=== PATIENT | female | born 1970 | race Caucasian/White ===

== ENCOUNTER 2017-09-01 13:20 | Inpatient (IN) ==
[~2017-09-01 13:20] MED LIST: *HR* Etomidate 20 MG/10 ML AMPUL IVP ONE; *HR* Rocuronium Bromide 100 MG/10 ML VIAL IVC ONE; 0.9 % Sodium Chloride 1,000 ML IV.SOLN IV ONE
[2017-09-01] MEDS ORDERED: Dexmedetomidine HCl 400 MCG/100 ML MLS IVC SCH (13:30)
[2017-09-01] MEDS ORDERED: *HR* Midazolam HCl 5 MG/5 ML VIAL IVP ONE ×3 (13:38→15:38)
[2017-09-01] MEDS ORDERED: *HR* Midazolam HCl 2 MG/2 ML VIAL ONE ×3 (13:39→15:40)
--- NOTE | 2017-09-01 13:43 | Emergency Department Note ---
Disposition Clinical Impression: Myxedema coma, Acute hypercapnic respiratory failure Disposition: Admitted As Inpatient Condition: Serious CPR HPI - General Chief Complaint: ED Cardiac Arrest/CPR Stated Complaint: unresponsive Time Seen by Provider: 09/01/17 13:25 Source: EMS Mode of arrival: EMS Limitations: other Nursing Notes Reviewed: Yes Vital Signs Reviewed: Yes - History of Present Illness HPI Narrative: Patient presents to the ED via EMS after return of spontaneous circulation after an apparent cardiac arrest. EMS was called to the patient's house after the patient was an argument with her family over Thanksgiving dinner. She then became diaphoretic, short of breath and collapsed. Reportedly, the patient did not have a pulse and bystander CPR was performed. When EMS arrived they state that she was actively breathing, unresponsive and had a weak thready pulse. No medications were administered. A nasal airway was in place and bag valve mask ventilation provided. Upon arrival to the emergency department patient was minimally responsive and had no gag reflex. The decision to intubate the RSI. Please see my note for further details. Family is present and states that the patient does have multiple presentations exactly like this previously where she will have acute respiratory failure of unknown cause. - Related Data Home Medications Medication Instructions Recorded Confirmed Unable To Obtain [Unable to Obtain] 09/01/17 09/01/17 Allergies Allergy/AdvReac Type Severity Reaction Status Date / Time No Known Allergies Allergy Verified 09/01/17 15:16 Limitations: ROS unobtainable due to patients medical condition CPR PMH - Past Medical History Medical history: Reports: no medical history - Social History Smoking Status: Unknown if ever smoked Physical Exam - General Limitations: other General appearance: obese - Head Head exam: atraumatic - Eye Eye exam: Present: mydriasis (minimally responsive ), periorbital swelling - ENT ENT exam: mucous membranes dry, other (Teeth clenched, absent gag reflex) - Neck Neck exam: Present: normal inspection, full ROM, trachea midline - Chest Chest inspection: Present: normal inspection, symmetric chest wall rise - Respiratory Respiratory exam: Present: normal lung sounds bilaterally - Cardiovascular Cardiovascular exam: Present: tachycardia, normal heart sounds - Abdominal Exam Abdominal exam: Present: soft, other (Obesity) - Female Process Engineering Technician present during exam: Yes (Urinary incontinence) - Expanded Lower Extremity Exam Hip/Pelvis exam: Present: pelvis stable - Neurological Exam Neurological exam: Absent: alert, oriented X3 - Expanded Neurological Exam Coma Scale Eye Opening: Spontaneous Coma Scale Motor Response: None Coma Scale Verbal Response: Incomprehensible Coma Scale Total: 7 - Skin Skin exam: Present: warm, dry, intact, normal color Course Course Narrative: Patient arriving unresponsive. GCS 7, absent gag reflex, minimally responsive pupils. Unclear etiology around the patient's collapse. RSI performed. Please see my note for further details. Patient hypertensive. Stat CT of the head and neck to rule out intracranial pathology. Labs pending. Will likely CTA chest, abdomen and pelvis and admit to ICU. Fentanyl and Precedex for sedation - Reevaluation(s) Reevaluation #1: tsh elevated, T3/4 ordered and were low. suspect myxedema coma, T3/4 ordered, pharmacy states we don't have T3. No steroids for now, cortisol level normal. Vital Signs Respiratory Rate 12 09/01/17 13:24 Blood Pressure 241/156 09/01/17 13:24 O2 Sat by Pulse Oximetry 93 09/01/17 13:24 Temperature 97.8 F 09/01/17 17:18 Pulse Rate 66 09/01/17 17:18 Respiratory Rate 16 09/01/17 17:54 Blood Pressure 96/63 09/01/17 17:54 O2 Sat by Pulse Oximetry 100 09/01/17 17:18 Oxygen Delivery Oxygen Delivery Ventilator Procedures - Intubation Time out performed: No sedative: Etomidate Mg Given: 30 paralytic: Rocuronium Mg Given: 100 Laryngoscope: Bailey ET Tube Size: 7.5 ET Tube Uncuffed: No Tube Secured Depth (cm): 23 Tube Secured Location: teeth Tube Placement Confirmation: visualized tube passing through cords, equal breath sounds bilaterally, no breath sounds over epigastrium, confirmation by capnometry Patient Tolerated Procedure: well Intubation Complications: none Additional Comments: Performed by Dr. Griffin under my and Dr. Ángel Nance's direct supervision. Cardiac Arrest/CPR - Medical Records Medical records reviewed: Yes I reviewed the patient's medical records. - Lab Data Lab results reviewed: Yes I reviewed the patient's lab results. Result diagrams: 09/01/17 13:47 09/01/17 14:22 Lab Results 09/01/17 09/01/17 09/01/17 Range/Units 13:25 13:47 13:47 WBC 14.0 H (4.3-11.1) K/mcL RBC 5.05 H (3.82-4.97) M/mcL Hgb 15.1 (11.5-15.4) g/dL Hct 47.5 H (35.3-44.9) % MCV 94.1 (83.0-100.0) fL MCH 29.9 (28.0-33.3) pg MCHC 31.8 (31.6-35.5) g/dL RDW 13.5 (11.5-14.5) % Plt Count 295 (140-400) K/mcL MPV 10.5 (9.4-12.4) fL Immature Gran % 1.6 (0-4) % Seg Neutrophils % 44.4 % Lymphocytes % 45.6 % Monocytes % 5.9 % Eosinophils % 1.4 % Basophils % 1.1 % Neutrophils # 6.2 (1.6-8.9) K/mcL Lymphocytes # 6.4 H (0.6-4.6) K/mcL Monocytes # 0.8 (0.0-1.3) K/mcL Eosinophils # 0.2 (0.0-0.6) K/mcL Basophils # 0.2 (0.0-0.2) K/mcL PT (9.4-12.1) Seconds INR APTT (26.0-36.0) Seconds ABG pH (7.32-7.45) pH Units ABG pCO2 (35-45) mmHg ABG pO2 (85-104) mmHg ABG HCO3 (21-27) mEq/L ABG Total CO2 ABG O2 Saturation (95-98) % ABG Base Excess (-2 to 3) mEq/L VBG pH VBG pCO2 VBG pO2 VBG HCO3 Carboxyhemoglobin 5.2 H (0-5) % Sodium (136-145) mEq/L Potassium (3.5-4.5) mEq/L Chloride (98-109) mEq/L Carbon Dioxide (19-29) mEq/L BUN (7-20) mg/dL Creatinine (0.57-1.11) mg/dL Est GFR ( Amer) (> 60) Est GFR (Non-Af Amer) (> 60) BUN/Creatinine Ratio (6-26) Glucose (70-99) mg/dL POC Glucose 388 H (58-89) Calculated Osmolality (280-300) Calcium (8.6-10.8) mg/dL Phosphorus (2.3-4.7) mg/dL Magnesium (1.6-2.6) mg/dL Total Bilirubin (0.2-1.2) mg/dL Direct Bilirubin (0.0-0.5) mg/dL Indirect Bilirubin (0.0-1.2) mg/dL AST (5-34) Units/L ALT (0-55) Units/L Alkaline Phosphatase (38-126) Units/L Ammonia (18-72) mcmol/L Creatine Kinase (29-168) Units/L Troponin I (0-0.03) ng/mL B-Natriuretic Peptide (0-100) pg/mL Serum Total Protein (6.0-8.3) g/dL Albumin (3.5-5.0) g/dL Globulin (2.4-3.5) g/dL Albumin/Globulin Ratio (1.1-2.2) TSH (0.350-4.840) mcIU/mL Free T4 (0.70-1.48) ng/dl Thyroxine (T4) (4.87-11.72) mcg/dL Free T3 (1.71-3.71) pg/mL Total T3 (0.58-1.59) ng/mL Random Cortisol mcg/dl Urine Color (Yellow) Urine Clarity (Clear) Urine pH (5.0-8.0) pH Units Ur Specific [place] (1.010-1.025) Urine Protein (Neg-Trace) mg/dL Urine Glucose (UA) (Normal) mg/dL Urine Ketones (Negative) mg/dL Urine Blood (Negative) Urine Nitrite (Negative) Urine Bilirubin (Negative) Urine Urobilinogen (Normal) mg/dL Ur Leukocyte Esterase (Negative) Urine Microscopic RBC (0-3) per hpf Urine Microscopic WBC (0-3) per hpf Ur Squamous Epith Cells (None-Few) per lpf Urine Bacteria (None-Few) per hpf Hyaline Casts (None-Few) per lpf Ur Culture Indicated? (NO) Urine Opiates Screen (Lbubdm=878) ng/mL Ur Barbiturates Screen (Vnqeji=798) ng/mL Ur Phencyclidine Scrn (Cutoff=25) ng/mL Ur Amphetamines Screen (Dltzvx=4162) ng/mL U Benzodiazepines Scrn (Gcwgqx=458) ng/mL Urine Cocaine Screen (Cutoff= 300) ng/mL U Marijuana (THC) Screen (Cutoff = 50) ng/mL Ethyl Alcohol (0-10) mg/dL Specimen Rejected Person Notif of Crit 09/01/17 09/01/17 09/01/17 Range/Units 13:47 13:47 13:47 WBC (4.3-11.1) K/mcL RBC (3.82-4.97) M/mcL Hgb (11.5-15.4) g/dL Hct (35.3-44.9) % MCV (83.0-100.0) fL MCH (28.0-33.3) pg MCHC (31.6-35.5) g/dL RDW (11.5-14.5) % Plt Count (140-400) K/mcL MPV (9.4-12.4) fL Immature Gran % (0-4) % Seg Neutrophils % % Lymphocytes % % Monocytes % % Eosinophils % % Basophils % % Neutrophils # (1.6-8.9) K/mcL Lymphocytes # (0.6-4.6) K/mcL Monocytes # (0.0-1.3) K/mcL Eosinophils # (0.0-0.6) K/mcL Basophils # (0.0-0.2) K/mcL PT 11.4 (9.4-12.1) Seconds INR 1.1 APTT 29.9 (26.0-36.0) Seconds ABG pH (7.32-7.45) pH Units ABG pCO2 (35-45) mmHg ABG pO2 (85-104) mmHg ABG HCO3 (21-27) mEq/L ABG Total CO2 ABG O2 Saturation (95-98) % ABG Base Excess (-2 to 3) mEq/L VBG pH VBG pCO2 VBG pO2 VBG HCO3 Carboxyhemoglobin (0-5) % Sodium (136-145) mEq/L Potassium (3.5-4.5) mEq/L Chloride (98-109) mEq/L Carbon Dioxide (19-29) mEq/L BUN (7-20) mg/dL Creatinine (0.57-1.11) mg/dL Est GFR ( Amer) (> 60) Est GFR (Non-Af Amer) (> 60) BUN/Creatinine Ratio (6-26) Glucose (70-99) mg/dL POC Glucose (58-89) Calculated Osmolality (280-300) Calcium (8.6-10.8) mg/dL Phosphorus (2.3-4.7) mg/dL Magnesium (1.6-2.6) mg/dL Total Bilirubin (0.2-1.2) mg/dL Direct Bilirubin (0.0-0.5) mg/dL Indirect Bilirubin (0.0-1.2) mg/dL AST (5-34) Units/L ALT (0-55) Units/L Alkaline Phosphatase (38-126) Units/L Ammonia (18-72) mcmol/L Creatine Kinase (29-168) Units/L Troponin I 0.18 H* (0-0.03) ng/mL B-Natriuretic Peptide 193 H (0-100) pg/mL Serum Total Protein (6.0-8.3) g/dL Albumin (3.5-5.0) g/dL Globulin (2.4-3.5) g/dL Albumin/Globulin Ratio (1.1-2.2) TSH (0.350-4.840) mcIU/mL Free T4 (0.70-1.48) ng/dl Thyroxine (T4) (4.87-11.72) mcg/dL Free T3 (1.71-3.71) pg/mL Total T3 (0.58-1.59) ng/mL Random Cortisol mcg/dl Urine Color (Yellow) Urine Clarity (Clear) Urine pH (5.0-8.0) pH Units Ur Specific [place] (1.010-1.025) Urine Protein (Neg-Trace) mg/dL Urine Glucose (UA) (Normal) mg/dL Urine Ketones (Negative) mg/dL Urine Blood (Negative) Urine Nitrite (Negative) Urine Bilirubin (Negative) Urine Urobilinogen (Normal) mg/dL Ur Leukocyte Esterase (Negative) Urine Microscopic RBC (0-3) per hpf Urine Microscopic WBC (0-3) per hpf Ur Squamous Epith Cells (None-Few) per lpf Urine Bacteria (None-Few) per hpf Hyaline Casts (None-Few) per lpf Ur Culture Indicated? (NO) Urine Opiates Screen (Pjglyf=025) ng/mL Ur Barbiturates Screen (Mpqrew=722) ng/mL Ur Phencyclidine Scrn (Cutoff=25) ng/mL Ur Amphetamines Screen (Nqyimi=3031) ng/mL U Benzodiazepines Scrn (Tpyfud=115) ng/mL Urine Cocaine Screen (Cutoff= 300) ng/mL U Marijuana (THC) Screen (Cutoff = 50) ng/mL Ethyl Alcohol (0-10) mg/dL Specimen Rejected Person Notif of Crit 09/01/17 09/01/17 09/01/17 Range/Units 13:47 14:17 14:18 WBC (4.3-11.1) K/mcL RBC (3.82-4.97) M/mcL Hgb (11.5-15.4) g/dL Hct (35.3-44.9) % MCV (83.0-100.0) fL MCH (28.0-33.3) pg MCHC (31.6-35.5) g/dL RDW (11.5-14.5) % Plt Count (140-400) K/mcL MPV (9.4-12.4) fL Immature Gran % (0-4) % Seg Neutrophils % % Lymphocytes % % Monocytes % % Eosinophils % % Basophils % % Neutrophils # (1.6-8.9) K/mcL Lymphocytes # (0.6-4.6) K/mcL Monocytes # (0.0-1.3) K/mcL Eosinophils # (0.0-0.6) K/mcL Basophils # (0.0-0.2) K/mcL PT (9.4-12.1) Seconds INR APTT (26.0-36.0) Seconds ABG pH 7.07 L* (7.32-7.45) pH Units ABG pCO2 91 H* (35-45) mmHg ABG pO2 94 (85-104) mmHg ABG HCO3 26 (21-27) mEq/L ABG Total CO2 Test Not Performed ABG O2 Saturation 93 L (95-98) % ABG Base Excess -4 L (-2 to 3) mEq/L VBG pH TNP VBG pCO2 TNP VBG pO2 TNP VBG HCO3 TNP Carboxyhemoglobin (0-5) % Sodium (136-145) mEq/L Potassium (3.5-4.5) mEq/L Chloride (98-109) mEq/L Carbon Dioxide (19-29) mEq/L BUN (7-20) mg/dL Creatinine (0.57-1.11) mg/dL Est GFR ( Amer) (> 60) Est GFR (Non-Af Amer) (> 60) BUN/Creatinine Ratio (6-26) Glucose (70-99) mg/dL POC Glucose (58-89) Calculated Osmolality (280-300) Calcium (8.6-10.8) mg/dL Phosphorus (2.3-4.7) mg/dL Magnesium (1.6-2.6) mg/dL Total Bilirubin (0.2-1.2) mg/dL Direct Bilirubin (0.0-0.5) mg/dL Indirect Bilirubin (0.0-1.2) mg/dL AST (5-34) Units/L ALT (0-55) Units/L Alkaline Phosphatase (38-126) Units/L Ammonia (18-72) mcmol/L Creatine Kinase (29-168) Units/L Troponin I (0-0.03) ng/mL B-Natriuretic Peptide (0-100) pg/mL Serum Total Protein (6.0-8.3) g/dL Albumin (3.5-5.0) g/dL Globulin (2.4-3.5) g/dL Albumin/Globulin Ratio (1.1-2.2) TSH (0.350-4.840) mcIU/mL Free T4 (0.70-1.48) ng/dl Thyroxine (T4) (4.87-11.72) mcg/dL Free T3 (1.71-3.71) pg/mL Total T3 (0.58-1.59) ng/mL Random Cortisol mcg/dl Urine Color Yellow (Yellow) Urine Clarity Clear (Clear) Urine pH 6.5 (5.0-8.0) pH Units Ur Specific [place] 1.014 (1.010-1.025) Urine Protein >=300 H (Neg-Trace) mg/dL Urine Glucose (UA) 500 H (Normal) mg/dL Urine Ketones Negative (Negative) mg/dL Urine Blood Moderate H (Negative) Urine Nitrite Negative (Negative) Urine Bilirubin Negative (Negative) Urine Urobilinogen Normal (Normal) mg/dL Ur Leukocyte Esterase Negative (Negative) Urine Microscopic RBC 0-3 (0-3) per hpf Urine Microscopic WBC 3-5 H (0-3) per hpf Ur Squamous Epith Cells Many H (None-Few) per lpf Urine Bacteria None Seen (None-Few) per hpf Hyaline Casts None Seen (None-Few) per lpf Ur Culture Indicated? NO (NO) Urine Opiates Screen (Dgzltn=906) ng/mL Ur Barbiturates Screen (Nsktln=207) ng/mL Ur Phencyclidine Scrn (Cutoff=25) ng/mL Ur Amphetamines Screen (Cowurh=3754) ng/mL U Benzodiazepines Scrn (Kbgino=990) ng/mL Urine Cocaine Screen (Cutoff= 300) ng/mL U Marijuana (THC) Screen (Cutoff = 50) ng/mL Ethyl Alcohol (0-10) mg/dL Specimen Rejected Hemolyzed Person Notif of Crit Dr Nance 09/01/17 09/01/17 09/01/17 Range/Units 14:18 14:22 14:22 WBC (4.3-11.1) K/mcL RBC (3.82-4.97) M/mcL Hgb (11.5-15.4) g/dL Hct (35.3-44.9) % MCV (83.0-100.0) fL MCH (28.0-33.3) pg MCHC (31.6-35.5) g/dL RDW (11.5-14.5) % Plt Count (140-400) K/mcL MPV (9.4-12.4) fL Immature Gran % (0-4) % Seg Neutrophils % % Lymphocytes % % Monocytes % % Eosinophils % % Basophils % % Neutrophils # (1.6-8.9) K/mcL Lymphocytes # (0.6-4.6) K/mcL Monocytes # (0.0-1.3) K/mcL Eosinophils # (0.0-0.6) K/mcL Basophils # (0.0-0.2) K/mcL PT (9.4-12.1) Seconds INR APTT (26.0-36.0) Seconds ABG pH (7.32-7.45) pH Units ABG pCO2 (35-45) mmHg ABG pO2 (85-104) mmHg ABG HCO3 (21-27) mEq/L ABG Total CO2 ABG O2 Saturation (95-98) % ABG Base Excess (-2 to 3) mEq/L VBG pH VBG pCO2 VBG pO2 VBG HCO3 Carboxyhemoglobin (0-5) % Sodium 139 (136-145) mEq/L Potassium 3.8 (3.5-4.5) mEq/L Chloride 101 (98-109) mEq/L Carbon Dioxide 22 (19-29) mEq/L BUN 14 (7-20) mg/dL Creatinine 1.13 H (0.57-1.11) mg/dL Est GFR ( Amer) > 60 (> 60) Est GFR (Non-Af Amer) 52 L (> 60) BUN/Creatinine Ratio 12 (6-26) Glucose 401 H (70-99) mg/dL POC Glucose (58-89) Calculated Osmolality 305 H (280-300) Calcium 8.7 (8.6-10.8) mg/dL Phosphorus 5.1 H (2.3-4.7) mg/dL Magnesium 2.1 (1.6-2.6) mg/dL Total Bilirubin 0.3 (0.2-1.2) mg/dL Direct Bilirubin 0.1 (0.0-0.5) mg/dL Indirect Bilirubin 0.2 (0.0-1.2) mg/dL AST 67 H (5-34) Units/L ALT 35 (0-55) Units/L Alkaline Phosphatase 192 H (38-126) Units/L Ammonia 55 (18-72) mcmol/L Creatine Kinase 334 H (29-168) Units/L Troponin I (0-0.03) ng/mL B-Natriuretic Peptide (0-100) pg/mL Serum Total Protein 8.6 H (6.0-8.3) g/dL Albumin 4.0 (3.5-5.0) g/dL Globulin 4.6 H (2.4-3.5) g/dL Albumin/Globulin Ratio 0.9 L (1.1-2.2) TSH 199.833 H (0.350-4.840) mcIU/mL Free T4 (0.70-1.48) ng/dl Thyroxine (T4) (4.87-11.72) mcg/dL Free T3 (1.71-3.71) pg/mL Total T3 (0.58-1.59) ng/mL Random Cortisol mcg/dl Urine Color (Yellow) Urine Clarity (Clear) Urine pH (5.0-8.0) pH Units Ur Specific [place] (1.010-1.025) Urine Protein (Neg-Trace) mg/dL Urine Glucose (UA) (Normal) mg/dL Urine Ketones (Negative) mg/dL Urine Blood (Negative) Urine Nitrite (Negative) Urine Bilirubin (Negative) Urine Urobilinogen (Normal) mg/dL Ur Leukocyte Esterase (Negative) Urine Microscopic RBC (0-3) per hpf Urine Microscopic WBC (0-3) per hpf Ur Squamous Epith Cells (None-Few) per lpf Urine Bacteria (None-Few) per hpf Hyaline Casts (None-Few) per lpf Ur Culture Indicated? (NO) Urine Opiates Screen Negative (Fdbgaq=236) ng/mL Ur Barbiturates Screen Negative (Zuweyg=783) ng/mL Ur Phencyclidine Scrn Negative (Cutoff=25) ng/mL Ur Amphetamines Screen Negative (Adtaku=7859) ng/mL U Benzodiazepines Scrn Positive H (Zizrmq=106) ng/mL Urine Cocaine Screen Negative (Cutoff= 300) ng/mL U Marijuana (THC) Screen Negative (Cutoff = 50) ng/mL Ethyl Alcohol < 10 (0-10) mg/dL Specimen Rejected Person Notif of Crit 09/01/17 09/01/17 09/01/17 Range/Units 14:22 14:22 17:04 WBC (4.3-11.1) K/mcL RBC (3.82-4.97) M/mcL Hgb (11.5-15.4) g/dL Hct (35.3-44.9) % MCV (83.0-100.0) fL MCH (28.0-33.3) pg MCHC (31.6-35.5) g/dL RDW (11.5-14.5) % Plt Count (140-400) K/mcL MPV (9.4-12.4) fL Immature Gran % (0-4) % Seg Neutrophils % % Lymphocytes % % Monocytes % % Eosinophils % % Basophils % % Neutrophils # (1.6-8.9) K/mcL Lymphocytes # (0.6-4.6) K/mcL Monocytes # (0.0-1.3) K/mcL Eosinophils # (0.0-0.6) K/mcL Basophils # (0.0-0.2) K/mcL PT (9.4-12.1) Seconds INR APTT (26.0-36.0) Seconds ABG pH (7.32-7.45) pH Units ABG pCO2 (35-45) mmHg ABG pO2 (85-104) mmHg ABG HCO3 (21-27) mEq/L ABG Total CO2 ABG O2 Saturation (95-98) % ABG Base Excess (-2 to 3) mEq/L VBG pH 7.18 L* VBG pCO2 80 H* VBG pO2 31 VBG HCO3 30 H Carboxyhemoglobin (0-5) % Sodium (136-145) mEq/L Potassium (3.5-4.5) mEq/L Chloride (98-109) mEq/L Carbon Dioxide (19-29) mEq/L BUN (7-20) mg/dL Creatinine (0.57-1.11) mg/dL Est GFR ( Amer) (> 60) Est GFR (Non-Af Amer) (> 60) BUN/Creatinine Ratio (6-26) Glucose (70-99) mg/dL POC Glucose (58-89) Calculated Osmolality (280-300) Calcium (8.6-10.8) mg/dL Phosphorus (2.3-4.7) mg/dL Magnesium (1.6-2.6) mg/dL Total Bilirubin (0.2-1.2) mg/dL Direct Bilirubin (0.0-0.5) mg/dL Indirect Bilirubin (0.0-1.2) mg/dL AST (5-34) Units/L ALT (0-55) Units/L Alkaline Phosphatase (38-126) Units/L Ammonia (18-72) mcmol/L Creatine Kinase (29-168) Units/L Troponin I (0-0.03) ng/mL B-Natriuretic Peptide (0-100) pg/mL Serum Total Protein (6.0-8.3) g/dL Albumin (3.5-5.0) g/dL Globulin (2.4-3.5) g/dL Albumin/Globulin Ratio (1.1-2.2) TSH (0.350-4.840) mcIU/mL Free T4 0.43 L (0.70-1.48) ng/dl Thyroxine (T4) 2.11 L (4.87-11.72) mcg/dL Free T3 1.16 L (1.71-3.71) pg/mL Total T3 0.64 (0.58-1.59) ng/mL Random Cortisol 12.5 mcg/dl Urine Color (Yellow) Urine Clarity (Clear) Urine pH (5.0-8.0) pH Units Ur Specific [place] (1.010-1.025) Urine Protein (Neg-Trace) mg/dL Urine Glucose (UA) (Normal) mg/dL Urine Ketones (Negative) mg/dL Urine Blood (Negative) Urine Nitrite (Negative) Urine Bilirubin (Negative) Urine Urobilinogen (Normal) mg/dL Ur Leukocyte Esterase (Negative) Urine Microscopic RBC (0-3) per hpf Urine Microscopic WBC (0-3) per hpf Ur Squamous Epith Cells (None-Few) per lpf Urine Bacteria (None-Few) per hpf Hyaline Casts (None-Few) per lpf Ur Culture Indicated? (NO) Urine Opiates Screen (Ktbrwu=523) ng/mL Ur Barbiturates Screen (Wnbwrk=806) ng/mL Ur Phencyclidine Scrn (Cutoff=25) ng/mL Ur Amphetamines Screen (Ecjuzk=4804) ng/mL U Benzodiazepines Scrn (Gpgmjh=231) ng/mL Urine Cocaine Screen (Cutoff= 300) ng/mL U Marijuana (THC) Screen (Cutoff = 50) ng/mL Ethyl Alcohol (0-10) mg/dL Specimen Rejected Person Notif of Crit /ER - Radiology Data Radiology results reviewed: Yes I reviewed the patient's radiology results. - EKG Data EKG attestation: Yes I reviewed and interpreted this EKG. EKG results narrative: Sinus tach, rate 122, MS interval 134, QRS 121, QTc 394, normal axis, intraventricular conduction delay with ST segment depression inferiorly and poor R-wave progression Critical Care Time Critical Care Time: Yes Total Critical Care Time: 90 Attestation: Critical care performed: Time is exclusive of separately billable procedures. Time includes: direct patient care, patient reassessment, coordination of patient care, interpretation of data (laboratory data, radiology data, and respiratory data), review of patient's medical records, medical consultation and documentation of patient care. Procedures included in critical care time: Procedures excluded from critical care time: Intubation
--- NOTE | 2017-09-01 13:45 | Emergency Department Note ---
START Narrative - START START: I examined this patient and my medical decision-making was reviewed with the Resident Physician. I agree with the documented findings, disposition and treatment plan as described except to the extent set forth below. 45 year old female present to the ED via EMS for unresponsive nature. Patients family at bedside states that this is not uncommon for her to do this when she gets worked and has panic attacks. There as an arguement over thanksgiving food at her daughger house today and it elicited her to hyperventiliate and then have a synopal episode. When familiy checked for pulses she did not have any and they started CPR. Upon EMS arrival she was cyanotic blue lips and had an initial pulse ox of low 80% and continue to have weak thready pulses. Epi was not admiinstered. They had spontatonus ROSC en route and delivered 2 narcan altogh she had dilated pupils. Patinet upon arrival to us was hypoxic and altered and not protecting her airway. No response to painful/verbal stimuli GCS < 8. Rsident Mina Sahni intubated patient and we REside Mina Henderson is managing case. We will admit to ICU after workup.
[2017-09-01 13:58] LABS: Basophils # 0.2 K/mcL (0.0-0.2); Basophils % 1.1 %; Eosinophils # 0.2 K/mcL (0.0-0.6); Eosinophils % 1.4 %; Hematocrit 47.5 % (35.3-44.9); Hemoglobin 15.1 g/dL (11.5-15.4); Immature Granulocytes % 1.6 % (0-4); Lymphocytes # 6.4 K/mcL (0.6-4.6); Lymphocytes % 45.6 %; Mean Corpuscular HGB Conc 31.8 g/dL (31.6-35.5); Mean Corpuscular Hemoglobin 29.9 pg (28.0-33.3); Mean Corpuscular Volume 94.1 fL (83.0-100.0); Mean Platelet Volume 10.5 fL (9.4-12.4); Monocytes # 0.8 K/mcL (0.0-1.3); Monocytes % 5.9 %; Neutrophils # 6.2 K/mcL (1.6-8.9); Platelet Count 295 K/mcL (140-400); Red Blood Count 5.05 M/mcL (3.82-4.97); Red Cell Distribution Width 13.5 % (11.5-14.5); Segmented Neutrophils % 44.4 %
[2017-09-01 13:59] LABS: Carboxyhemoglobin 5.2 % (0-5)
[2017-09-01] MEDS ORDERED: *HR* Midazolam HCl 5 MG/ML VIAL IVP ONE (14:00)
[2017-09-01 14:07] LABS: INR 1.1; Prothrombin Time 11.4 Seconds (9.4-12.1)
[2017-09-01 14:09] LABS: Activated Partial Thrombo Time 29.9 Seconds (26.0-36.0)
[2017-09-01] MEDS ORDERED: Clindamycin 900 MG/50 ML 900 MG/50 ML IV.SOLN IVPB ONE (14:24)
[2017-09-01 14:25] LABS: Bilirubin,Urine Negative (Negative); Blood,Urine Moderate (Negative); Clarity,Urine Clear (Clear); Color,Urine Yellow (Yellow); Glucose,Urine (UA) 500 mg/dL (Normal); Ketones,Urine Negative (Negative); Leukocyte Esterase,Urine Negative (Negative); Nitrite,Urine Negative (Negative); PH,Urine 6.5 pH Units (5.0-8.0); Protein,Urine >=300 mg/dL (Neg-Trace); Specific Gravity,Urine 1.014 (1.010-1.025); Urobilinogen,Urine Normal (Normal)
[2017-09-01] MEDS ORDERED: *HR* Rocuronium Bromide 100 MG/10 ML VIAL IVP ONE (14:26)
[2017-09-01] MEDS ORDERED: *HR* Etomidate 20 MG/10 ML AMPUL IVP ONE (14:26)
[2017-09-01] MEDS: FentaNYL (PF) 1,000 MCG in 0.9 % Sodium Chloride 80 ML IVC SCH (14:27)
[2017-09-01 14:28] LABS: Bacteria,Urine None Seen per hpf (None-Few); Hyaline Casts,Urine None Seen per lpf (None-Few); RBC,Urine 0-3 per hpf (0-3); Squamous Epithelial Cell,Urine Many per lpf (None-Few)
[2017-09-01 14:34] LABS: Amphetamine Screen,Urine Negative ng/mL (Cutoff=1000); Barbiturate Screen,Urine Negative ng/mL (Cutoff=200); Benzodiazepines Screen,Urine Positive ng/mL (Cutoff=200); Cannabinoid Screen,Urine Negative ng/mL (Cutoff = 50); Cocaine Screen,Urine Negative ng/mL (Cutoff= 300); Opiate Screen,Urine Negative ng/mL (Cutoff=300); Phencyclidine Screen,Urine Negative ng/mL (Cutoff=25)
[2017-09-01 14:37] LABS: ABG PH 7.07 pH Units (7.32-7.45)
[2017-09-01 14:38] LABS: ABG HCO3 26 mEq/L (21-27); ABG PCO2 91 mmHg (35-45); ABG PO2 94 mmHg (85-104)
[2017-09-01 14:45] LABS: ABG Base Excess -4 mEq/L (-2 to 3); ABG Oxygen Saturation 93 % (95-98)
[2017-09-01 14:54] LABS: Alanine Aminotransferase 35 Units/L (0-55); Albumin/Globulin Ratio 0.9 (1.1-2.2); Alkaline Phosphatase 192 Units/L (38-126); Aspartate Amino Transferase 67 Units/L (5-34); BUN/Creatinine Ratio 12 (6-26); Bilirubin,Direct 0.1 mg/dL (0.0-0.5); Bilirubin,Indirect 0.2 mg/dL (0.0-1.2); Bilirubin,Total 0.3 mg/dL (0.2-1.2); Blood Urea Nitrogen 14 mg/dL (7-20); Calcium 8.7 mg/dL (8.6-10.8); Carbon Dioxide 22 mEq/L (19-29); Chloride 101 mEq/L (98-109); Creatine Kinase 334 Units/L (29-168); Globulin 4.6 g/dL (2.4-3.5); Glucose 401 mg/dL (70-99); Magnesium 2.1 mg/dL (1.6-2.6); Osmolality,Calculated 305 (280-300); Phosphorous 5.1 mg/dL (2.3-4.7); Potassium 3.8 mEq/L (3.5-4.5); Sodium 139 mEq/L (136-145); Total Protein 8.6 g/dL (6.0-8.3); eGFR For African Americans > 60 (> 60); eGFR For Non-African Americans 52 (> 60)
[2017-09-01 14:56] LABS: Ethanol < 10 mg/dL (0-10)
[2017-09-01] MEDS: Dexmedetomidine HCl 400 MCG/100 ML MLS IVC SCH ×2 (14:57→21:51)
[2017-09-01 15:07] LABS: Thyroid Stimulating Hormone 199.833 mcIU/mL (0.350-4.840)
[2017-09-01] MEDS ORDERED: *HR* Vecuronium 10 MG VIAL IVP ONE (15:39)
[2017-09-01] MEDS ORDERED: *HR* Vecuronium 10 MG VIAL ONE (15:43)
[2017-09-01] MEDS ORDERED: 0.9 % Sodium Chloride 1,000 ML IVC ONE (16:19)
[2017-09-01 17:02] LABS: Triiodothyronine (T3) Free 1.16 pg/mL (1.71-3.71); Triiodothyronine (T3) Total 0.64 ng/mL (0.58-1.59)
[2017-09-01 17:08] LABS: VBG HCO3 30 mEq/L (21-27); VBG PCO2 80 mmHg (41-51); VBG PH 7.18 pH Units (7.32-7.42); VBG PO2 31 mmHg (25-50)
[2017-09-01] MEDS ORDERED: Naloxone 0.4 MG/ML INJ IVP PRN (17:21)
[2017-09-01] MEDS ORDERED: *HR* Dextrose 50 % in Water (Syg) 50 ML SYRINGE IVP PRN (17:24)
[2017-09-01] MEDS ORDERED: Insulin Human Regular 100 UNIT in 0.9 % Sodium Chloride 100 ML IVC SCH (17:30)
[2017-09-01] MEDS ORDERED: Levothyroxine Sodium 200 MCG VIAL IVP ONE (17:30)
[2017-09-01] MEDS ORDERED: Liothyronine Sodium 10 MCG/ML IVP ONE (17:30)
--- NOTE | 2017-09-01 17:57 | Internal Med History&Physical ---
Date of Encounter: 09/01/17 Time of Encounter: 17:45 Assessment and Plan (1) Acute hypercapnic respiratory failure Current visit: Yes Status: Acute Patient with acute hypercapnic respiratory failure. Unclear etiology as to exact cause of respiratory failure but patient is obese and may have underlying sleep apnea and obesity hypoventilation syndrome. Patient is currently intubated and mechanically ventilated. We will admit him inpatient to ICU. Patient is in critical condition and at high risk for further complications. When management in conjunction with respiratory therapy. Currently in A/C mode tidal volume of 450 and rate of 12. We will adjust settings according to ABG. Sedation with Precedex. Pain management with fentanyl intravenously as needed. Monitor vital signs closely. We will also place patient on empiric antibiotic with clindamycin given her significant duration of mental status decline with increased risk of aspiration although her chest x-ray does not clearly show an infiltrate at this time. We will also check lactic acid levels. (2) Myxedema coma Current visit: Yes Status: Acute Patient with severe hypothyroidism and with mental status decline. Will treat with intravenous T3 and T4. Random cortisol within normal limits. No indication for hydrocortisone at this time. Heart rate currently in the 60s. Monitor vital signs closely. We will place patient on intravenous dextrose infusion along with telemetry and keep patient warm. Monitor input and output. (3) Acute renal failure Current visit: Yes Status: Acute Patient has mild acute kidney injury with creatinine of 1.13. Unknown baseline. Will follow renal function. Avoid nephrotoxic agents Qualifiers: Acute renal failure type: unspecified Qualified Code(s): N17.9 - Acute kidney failure, unspecified (4) Diabetes mellitus Current visit: Yes Status: Chronic Uncontrolled blood sugars. Patient will be on dextrose solution due to her severe hypothyroidism. We will place her on intravenous insulin to control her blood sugars better. Patient is not in DKA. 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 Could be demand ischemia and respiratory failure related. We will trend troponins. We will also get 2-D echocardiogram. (6) Pulmonary edema Current visit: Yes Status: Acute Mild pulmonary edema per CT scan and chest x-ray findings. We will hold off on aggressive diuresis at this time due to low blood pressure currently. May start Lasix tomorrow his blood pressure improves. Qualifiers: Chronicity: acute Qualified Code(s): J81.0 - Acute pulmonary edema (7) Essential hypertension Current visit: Yes Status: Chronic Patient initially came to the ER where in hypertensive emergency with a blood pressure of 241/156. Since then her blood pressure has improved and is currently trending low. Map remains greater than 65. She was also tachycardic initially but her heart rate is currently maintaining in the 60s. We will monitor blood pressure closely. Bolus as needed. No indication for pressors at this time. If things change overnight and patient remains hypotensive, she will need a central line and pressor support. (8) Abnormal liver enzymes Current visit: Yes Status: Acute Patient has an elevated AST and alkaline phosphatase level. We will get limited ultrasound of the abdomen to look for any biliary disease. We will also check hepatitis viral panel. Internal Medicine - H&P: HPI Chief complaint: Unresponsive and in respiratory failure Admitted From: Emergency Dept Plans for Post Hospital Care: Home History of present illness: Ms. Lo is a 46 year old female patient with history of diabetes mellitus type 2, essential hypertension, hypothyroidism and obesity who was brought to the ER by EMS after she was found unresponsive at home. Patient apparently had been with family members and was in the midst of an argument at home when she suddenly had apparently related and passed out. She is currently unable to provide history and no family is present at bedside. History is therefore been obtained through ED record. By the time EMS arrived at home, bystander CPR had been present. Patient was found to be breathing unresponsive and had a weak thready pulse. A nasal airway was placed and patient was transferred to the ER. In the ER, she was found to be very minimally responsive with a low GCS and no gag reflex. As such she was intubated and is currently mechanically ventilated. According to family members as reported in the ED record, patient has had similar presentations in the past with respiratory failure of unknown cause. Past Med Surg Social Fam HX - Past Medical History Source: old records reviewed, obtained from family Medical history: diabetes, hypertension, thyroid disease - Social History Smoking Status: Unknown if ever smoked - Additional Family History Additional family history: Unable to obtain at this time Internal Medicine - H&P: Meds Unable To Obtain [Unable to Obtain] 09/01/17 [History] 3 Allergy/AdvReac Type Severity Reaction Status Date / Time No Known Allergies Allergy Verified 09/01/17 15:16 ROS unobtainable: due to endotracheal tube, due to mental status - Constitutional Vitals: Temp Pulse Resp BP Pulse Ox 97.8 F 66 16 118/84 100 09/01/17 17:18 09/01/17 17:18 09/01/17 17:18 09/01/17 17:18 09/01/17 17:18 General appearance: Present: morbidly obese, severe distress. Absent: answers questions appropriately Exam: Sedated and intubated - Eye Eye exam: Present: PERRL - ENT Additional comments: Endotracheal tube in place - Respiratory Respiratory exam: Present: prolonged expiratory phase Additional comments: Coarse breath sounds bilaterally with basal crackles - Cardiovascular Cardiovascular exam: Present: RRR, +S1, +S2. Absent: diastolic murmur, gallop, rubs, systolic murmur - GI/Abdominal GI/Abdominal exam: Present: normal bowel sounds, soft, no peritoneal signs. Absent: distended, tenderness - Extremities Exam Extremities exam: Present: warm, radial pulses palpable and symmetrical. Absent : calf tenderness, cyanotic, pedal edema - Neurological Exam Neurological exam: Present: altered. Absent: facial droop, speech deficit - Skin Skin exam: Present: dry, intact. Absent: mottled Internal Med - H&P Results - Labs CBC & Chem 7: 09/01/17 13:47 09/01/17 14:22 - ABG Interpretation Interpretation: ABG interpreted by me Interpretation: abnormal, respiratory acidosis - EKG Data EKG shows normal: sinus rhythm - EKG Data EKG comments: 09/01/17 17:58 Sinus tachycardia with intraventricular conduction delay with mild ST segment depression inferiorly - Impressions Impressions Chest X-Ray 09/01/17 13:25 IMPRESSION: Supportive tubing projects in normal position. Perihilar airspace disease, asymmetrically greater on the right. This is favored to represent pulmonary edema, possibly neurogenic. Other causes of airspace disease are aspiration, pneumonia or pulmonary hemorrhage. D/ / Luis Eduardo Julian MD / Luis Eduardo Julian MD Interpreting Provider: Luis Eduardo Julian MD Cervical Spine CT 09/01/17 13:39 IMPRESSION: No acute abnormality of the cervical spine. Endotracheal tube with tip at the level the gilbert. Retraction of the tube by 3-4 cm is recommended. Dense posterior right upper lobe consolidation suggesting pneumonia to include aspiration. Interlobular septal thickening and ground-glass opacity within the visualized lungs. Correlation for pulmonary edema is recommended. Bilateral mastoid air cell disease. D/ / Rosario Ortiz Cha, MD / Rosario Ortiz Cha, MD Interpreting Provider: Rosario Ortiz Cha, MD Head CT 09/01/17 13:39 IMPRESSION: No acute intracranial abnormality. D/ / Hakeem Sol MD / Hakeem Sol MD Interpreting Provider: Hakeem Sol MD Chest CTA 09/01/17 13:59 IMPRESSION: No acute vascular injury is identified. There is no aortic dissection appreciated. Dependent atelectasis in the lungs. Interstitial septal lines may indicate pulmonary edema. Supportive tubing is in normal position. Moderate diffuse fatty infiltration of the liver. Cholelithiasis. D/ / Luis Eduardo Julian MD / Luis Eduardo Julian MD Interpreting Provider: Luis Eduardo Julian MD Critical Care Time Critical Care Time: Yes (35 min) Attestation: This patient has a high probability of sudden, clinically significant deterioration, which requires the highest level of physician preparedness to intervene urgently.
[2017-09-01] MEDS: Famotidine 20 MG/2 ML VIAL IVP SCH (19:09)
[2017-09-01] MEDS: D5% in 0.45% NACL w KCl 10 MEQ/1,000 ML MLS IVC SCH (19:10)
[2017-09-01] MEDS: Chlorhexidine Rinse 15 ML MOUTHWASH MM SCH (19:53)
[2017-09-01] MEDS: Lacri-Lube 3.5 GM TUBE BOTH EYES SCH (19:58)
[2017-09-01] MEDS ORDERED: *HR* Heparin 5,000 UNIT/ML VIAL IVP PRN ×2 (20:10)
[2017-09-01] MEDS ORDERED: *HR* Heparin 5,000 UNIT/ML VIAL IVP ONE (20:10)
[2017-09-01 20:14] LABS: ABG Base Excess 0 mEq/L (-2 to 3); ABG HCO3 26 mEq/L (21-27); ABG Oxygen Saturation 99 % (95-98); ABG PCO2 45 mmHg (35-45); ABG PH 7.37 pH Units (7.32-7.45); ABG PO2 134 mmHg (85-104); ABG TCO2 27 mEq/L (20-26); Blood Gas Modality ASSIST CONTROL; Blood Gas PEEP 7 cm H2O; Blood Gas Respiration Rate 16; Blood Gas VT 450 cc
[2017-09-01] MEDS ORDERED: Heparin 25,000 UNIT/500 ML D5W 25,000 UNIT/500 ML MLS IVC SCH (20:15)
[2017-09-02] MEDS ORDERED: Liothyronine Sodium 10 MCG/ML IVP SCH
[2017-09-02] MEDS: FentaNYL (PF) 1,000 MCG in 0.9 % Sodium Chloride 80 ML IVC SCH (00:43)
[2017-09-02] MEDS: Lacri-Lube 3.5 GM TUBE BOTH EYES SCH ×3 (00:43→08:35)
[2017-09-02] MEDS: Clindamycin 600 MG/50 ML 600 MG/50 ML IV.SOLN IVPB SCH ×2 (00:45→08:35)
[2017-09-02] MEDS: Dexmedetomidine HCl 400 MCG/100 ML MLS IVC SCH (03:29)
[2017-09-02 03:56] LABS: Basophils # 0.1 K/mcL (0.0-0.2); Basophils % 0.5 %; Eosinophils # 0.1 K/mcL (0.0-0.6); Eosinophils % 0.5 %; Hematocrit 40.1 % (35.3-44.9); Immature Granulocytes % 0.4 % (0-4); Lymphocytes # 2.1 K/mcL (0.6-4.6); Lymphocytes % 20.2 %; Mean Corpuscular HGB Conc 32.4 g/dL (31.6-35.5); Mean Corpuscular Hemoglobin 29.9 pg (28.0-33.3); Mean Corpuscular Volume 92.2 fL (83.0-100.0); Mean Platelet Volume 10.5 fL (9.4-12.4); Monocytes # 0.8 K/mcL (0.0-1.3); Monocytes % 7.3 %; Neutrophils # 7.4 K/mcL (1.6-8.9); Platelet Count 195 K/mcL (140-400); Red Blood Count 4.35 M/mcL (3.82-4.97); Red Cell Distribution Width 13.9 % (11.5-14.5); Segmented Neutrophils % 71.1 %
[2017-09-02 04:11] LABS: BUN/Creatinine Ratio 15 (6-26); Blood Urea Nitrogen 14 mg/dL (7-20); Calcium 8.8 mg/dL (8.6-10.8); Carbon Dioxide 25 mEq/L (19-29); Chloride 107 mEq/L (98-109); Glucose 116 mg/dL (70-99); Osmolality,Calculated 287 (280-300); Potassium 4.1 mEq/L (3.5-4.5); Sodium 138 mEq/L (136-145); eGFR For African Americans > 60 (> 60); eGFR For Non-African Americans > 60 (> 60)
[2017-09-02 05:32] LABS: ABG Base Excess 1 mEq/L (-2 to 3); ABG HCO3 26 mEq/L (21-27); ABG Oxygen Saturation 97 % (95-98); ABG PCO2 42 mmHg (35-45); ABG PO2 96 mmHg (85-104); ABG TCO2 27 mEq/L (20-26); Blood Gas Modality ASSIST CONTROL; Blood Gas PEEP 7 cm H2O; Blood Gas Respiration Rate 16; Blood Gas VT 450 cc
[2017-09-02] MEDS: Famotidine 20 MG/2 ML VIAL IVP SCH (06:27)
[2017-09-02] MEDS ORDERED: Ipratropium/Albuterol Neb 3 ML IH SCH (08:15)
[2017-09-02] MEDS: *HR* Enoxaparin 40 MG/0.4 ML SYRINGE SQ SCH (08:34)
[2017-09-02] MEDS: Chlorhexidine Rinse 15 ML MOUTHWASH MM SCH (08:34)
[2017-09-02] MEDS ORDERED: Levothyroxine Sodium 100 MCG VIAL IVP SCH (09:00)
--- NOTE | 2017-09-02 09:18 | Pulmonology Consult Note ---
<Hal Steiner - Last Filed: 09/02/17 11:14> Date of Encounter: 09/02/17 Time of Encounter: 08:30 Assessment and Plan (1) Acute hypercapnic respiratory failure Current Visit: Yes Status: Acute - Episode of acute onset dyspnea and unresponsiveness prior to arrival to ED. Intubated in ED. - ABG in ED showed pH 7.07, pCO2 91, pO2 94 and HCO3 26. - Likely multifactorial including myxedema coma, aspiration pneumonia, asthma/ COPD and possible OHS and ABIEL. - CTA chest found no evidence of PE or dissection/aneurysm. - Patient's respiratory status improves as her ABG pH 7.40, pCO2 42, pO2 96 and HCO3 26 this morning. - Patient was successfully extubated this morning and currently tolerates nasal cannula oxygen well. - Synthroid and hydrocortisone for myxedema coma. - Augmentin for aspiration pneumonia. - Symbicort, bronchodilators and supplemental oxygen for COPD. - Consider CPAP for possible OHS/ABIEL if patient's respiratory status gets worse. - Continue close monitoring in ICU. Possible transfer out of ICU tomorrow if patient remains clinically stable. 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 - Likely secondary to abrupt discontinuation of Synthroid for one month. Patient also reports associated worsening generalized weakness, agitated mood and bilateral lower extremity edema. - Improves as patient is now alert and oriented x3. - On IV Synthroid and Liothyronine. Will switch to patient's home dose PO Synthroid 150 mg PO daily. - Also start hydrocortisone 100 mg IV q12H. (3) Aspiration pneumonia Current Visit: Yes Status: Acute - CTA chest found patchy opacities in the lower lobes. - Likely secondary to aspiration during patient's episode of unresponsiveness. - On IV clindamycin (Day 2). Will switch to PO Augmentin given patient is now alert and able to swallow. Qualifiers: Aspiration pneumonia type: unspecified Laterality: bilateral Lung location: lower lobe of lung Qualified Code(s): J69.0 - Pneumonitis due to inhalation of food and vomit (4) COPD (chronic obstructive pulmonary disease) Current Visit: Yes Status: Chronic - PMH of asthma and COPD per patient. Patient denies home oxygen use. - Start Symbicort and bronchodilators. Qualifiers: COPD type: unspecified COPD Qualified Code(s): J44.9 - Chronic obstructive pulmonary disease, unspecified (5) Elevated troponin I level Current Visit: Yes Status: Acute - Elevated troponin peaked at 0.44 but then adynamic at 0.37. - No significant ischemic change on EKG. - Likely secondary to CPR prior to patient's arrival to ED. - Patient was started on heparin drip but later held due to hematuria. (6) Pleuritic chest pain Current Visit: Yes Status: Acute - Left lower chest pain on inspiration per patient. - Likely secondary reported CPR prior to patient's arrival to ED. - Tylenol prn pain. (7) Essential hypertension Current Visit: Yes Status: Chronic - BP 150s/90s this morning. - Resume home dose lisinopril and amlodipine. (8) Diabetes mellitus Current Visit: Yes Status: Chronic - Glucose 401 on admission. Improves as glucose in 110s this morning. - Switch from IV insulin to insulin sliding scale with frequent glucose monitoring. - Diabetic diet. Qualifiers: Diabetes mellitus type: type 2 Diabetes mellitus complication status: with hyperglycemia Diabetes mellitus long term care administrator insulin use: unspecified long term care administrator insulin use status Qualified Code(s): E11.65 - Type 2 diabetes mellitus with hyperglycemia (9) DVT prophylaxis Current Visit: Yes Status: Acute - Continue SQ Lovenox. History of Present Illness Consult date: 09/02/17 Requesting physician: Rylan Moore Reason for consult: other (Unresponsiveness and acute respiratory failure requiring intubation, ICU management) Chief complaint: Shortness of breath and unresponsiveness History of present illness: Ms. Lo is a 46 year-old female with PMH of asthma, COPD, HTN, DM and hypothyroidism who was sent to [facility] ED for unresponsiveness. Patient had bystander CPR prior to EMS arrival at home. Patient was noted to have BP 241/ 156 and remained unresponsiveness in ED. TSH 199.8 with low free T4 & T3. ABG showed pH 7.07, pCO2 91, pO2 94 and HCO3 26. Patient was intubated and admitted to ICU on 09/01/17 for acute hypercapnic respiratory failure and myxedema coma. Critical care/Pulmonology was consulted for ICU management. Patient became more awake and got extubated earlier this morning. Patient was seen and examined. Patient recalls having argument with her family member in the kitchen and developed acute onset shortness of breath and then passed out yesterday. Patient admits not taking any medications including her bronchodilators, Symbicort and Synthroid for a month as she lost her insurance. Patient does notice worsening generalized weakness, agitated mood and bilateral lower extremity edema for a month as well. Patient denies having shortness of breath, cough, fever, chills prior to the episode yesterday. Patient also complains of left lower chest pain with inspiration. Past Med Surg Social Fam HX - Past Medical History Medical history: no medical history Psychiatric history: anxiety, panic disorder - Social History Smoking Status: Unknown if ever smoked Packs per day: 1 Smokeless Tobacco Status: No Alcohol use: rarely Drug use: none - Family History Father Age: 78 Hx Family Cardiac Disorders: Yes Hx Family Endocrine Disorder: Yes Medications and Allergies Albuterol Sulfate [Albuterol Inhaler] 2 puff IH QID PRN 09/02/17 [History] Amlodipine Besylate 2.5 mg PO DAILY 09/02/17 [History] Aspirin [Lo-Dose Aspirin EC] 81 mg PO DAILY 09/02/17 [History] Budesonide/Formoterol 160/4.5 [Symbicort 160/4.5] 2 puff IH TID 09/02/17 [ History] Carvedilol [Coreg] 25 mg PO BID 09/02/17 [History] Ferrous Sulfate [Iron] 325 mg PO DAILY 09/02/17 [History] Furosemide [Lasix] 20 mg PO DAILY 09/02/17 [History] Glimepiride [Amaryl] 1 mg PO DAILY 09/02/17 [History] Ipratropium [Atrovent Inhaler] 2 puff IH QID 09/02/17 [History] Isosorbide MONOnitrate (24 HR) [Imdur] 60 mg PO DAILY 09/02/17 [History] Levothyroxine [Synthroid] 150 mcg PO DAILY 09/02/17 [History] Lisinopril [Zestril] 40 mg PO DAILY 09/02/17 [History] Metformin HCl [Metformin HCl ER] 1,000 mg PO BID 09/02/17 [History] Montelukast [Singulair] 10 mg PO DAILY 09/02/17 [History] Potassium Chloride [K-Tab ER] 20 meq PO BID 09/02/17 [History] Sertraline [Zoloft] 100 mg PO DAILY 09/02/17 [History] SitaGLIPtin [Januvia] 100 mg PO DAILY 09/02/17 [History] 3 Allergy/AdvReac Type Severity Reaction Status Date / Time No Known Allergies Allergy Verified 09/01/17 15:16 All Systems: A 10-system review of systems was performed and is negative for pertinent findings except as documented above in the HPI. - Constitutional Constitutional: no chills, no fever(s) - EENT Eyes: no loss of vision Ears: no decreased hearing - Cardiovascular Cardiovascular: leg edema, syncope - Respiratory Respiratory: dyspnea, pain on inspirtation - Gastrointestinal Gastrointestinal: no abdominal pain, no nausea, no vomiting - Genitourinary Genitourinary: no dysuria - Musculoskeletal Musculoskeletal: no arthralgias - Integumentary Integumentary: no erythema - Neurological Neurological: no focal weakness, no numbness, no tingling Physical Examination Vital Signs: Vital Signs, Last 4 Hours Pulse Resp BP Pulse Ox 09/02/17 08:00 64 14 138/98 09/02/17 06:00 57 15 128/84 98 09/02/17 05:55 15 General appearance: no acute distress, alert Eyes: nonicteric ENT: oropharynx dry Neck: supple Effort: normal Inspection: normal Auscultation: bilateral: diminished breath sounds Cardiovascular: regular rate and rhythm Gastrointestinal: normoactive bowel sounds, non-tender, non-distended Integumentary: normal Extremities: no cyanosis, edema (Mild BLE edema) Musculoskeletal: no deformities Gait: normal posture normal mental status, non-focal exam mood appropriate Ventilator Settings Ventilator Settings: Ventilator Settings, Last 8 Hours Ventilator Mode CPAP Ventilator Mode A/C Ventilator Mode A/C Ventilator Mode A/C Ventilator Mode A/C Ventilator Mode A/C Ventilator Mode A/C Ventilator Mode A/C Ventilator Tidal Volume 450 Setting Ventilator Tidal Volume 450 Setting Ventilator Tidal Volume 450 Setting Ventilator Tidal Volume 450 Setting Ventilator Tidal Volume 450 Setting Ventilator Tidal Volume 450 Setting Ventilator Tidal Volume 450 Setting Ventilator Tidal Volume 450 Setting Ventilator Respiratory Rate 16 Setting Ventilator Respiratory Rate 16 Setting Ventilator Respiratory Rate 16 Setting Ventilator Respiratory Rate 16 Setting Ventilator Respiratory Rate 16 Setting Ventilator Respiratory Rate 16 Setting Ventilator Respiratory Rate 16 Setting Ventilator Respiratory Rate 16 Setting Actual Respiratory Rate 16 Actual Respiratory Rate 16 Actual Respiratory Rate 16 Actual Respiratory Rate 16 Actual Respiratory Rate 16 Actual Respiratory Rate 16 Positive End Expiratory 5 Pressure Positive End Expiratory 7 Pressure Positive End Expiratory 7 Pressure Positive End Expiratory 7 Pressure Positive End Expiratory 7 Pressure Positive End Expiratory 7 Pressure Positive End Expiratory 7 Pressure Positive End Expiratory 7 Pressure Peak Inspiratory Airway 11 Pressure Peak Inspiratory Airway 45 Pressure Peak Inspiratory Airway 52 Pressure Peak Inspiratory Airway 47 Pressure Peak Inspiratory Airway 51 Pressure Peak Inspiratory Airway 45 Pressure Peak Inspiratory Airway 42 Pressure Results - Laboratory Findings CBC and BMP: 09/02/17 03:40 09/02/17 03:40 ABG ABG pH 7.40 pH Units (7.32-7.45) 09/02/17 05:29 ABG pCO2 42 mmHg (35-45) 09/02/17 05:29 ABG pO2 96 mmHg (85-104) 09/02/17 05:29 ABG O2 Saturation 97 % (95-98) 09/02/17 05:29 PT/INR, D-dimer PT 11.4 Seconds (9.4-12.1) 09/01/17 13:47 Abnormal lab findings: Abnormal lab results ABG Total CO2 27 mEq/L (20-26) H 09/02/17 05:29 VBG pH 7.18 pH Units (7.32-7.42) L* 09/01/17 17:04 VBG pCO2 80 mmHg (41-51) H* 09/01/17 17:04 VBG HCO3 30 mEq/L (21-27) H 09/01/17 17:04 Carboxyhemoglobin 5.2 % (0-5) H 09/01/17 13:47 Glucose 116 mg/dL (70-99) H 09/02/17 03:40 POC Glucose 112 (58-89) H 09/02/17 09:07 Phosphorus 5.1 mg/dL (2.3-4.7) H 09/01/17 14:22 AST 67 Units/L (5-34) H 09/01/17 14:22 Alkaline Phosphatase 192 Units/L (38-126) H 09/01/17 14:22 Creatine Kinase 334 Units/L (29-168) H 09/01/17 14:22 Troponin I 0.37 ng/mL (0-0.03) H* 09/02/17 03:40 B-Natriuretic Peptide 150 pg/mL (0-100) H 09/02/17 03:40 Serum Total Protein 8.6 g/dL (6.0-8.3) H 09/01/17 14:22 Globulin 4.6 g/dL (2.4-3.5) H 09/01/17 14:22 Albumin/Globulin Ratio 0.9 (1.1-2.2) L 09/01/17 14:22 TSH 199.833 mcIU/mL (0.350-4.840) H 09/01/17 14:22 Free T4 0.43 ng/dl (0.70-1.48) L 09/01/17 14:22 Thyroxine (T4) 2.11 mcg/dL (4.87-11.72) L 09/01/17 14:22 Free T3 1.16 pg/mL (1.71-3.71) L 09/01/17 14:22 Urine Protein >=300 mg/dL (Neg-Trace) H 09/01/17 14:18 Urine Glucose (UA) 500 mg/dL (Normal) H 09/01/17 14:18 Urine Blood Moderate (Negative) H 09/01/17 14:18 Urine Microscopic WBC 3-5 per hpf (0-3) H 09/01/17 14:18 Ur Squamous Epith Cells Many per lpf (None-Few) H 09/01/17 14:18 U Benzodiazepines Scrn Positive ng/mL (Yqferw=500) H 09/01/17 14:18 - Diagnostic Findings CT scan - chest: report reviewed (No acute vascular injury is identified. There is no aortic dissection appreciated. Dependent atelectasis in the lungs. Interstitial septal lines may indicate pulmonary edema.tive tubing is in normal position. Moderate diffuse fatty infiltration of the liver. Cholelithiasis.), image reviewed - Clinical Findings Intake & Output: Intake & Output 09/01/17 09/02/17 09/02/17 23:59 07:59 15:59 Intake Total 116.1 / 1181.1 243 / 243 Output Total 350 / 350 250 / 250 Balance -233.9 / 831.1 -7 / -7 Weight 117.7 kg 114.7 kg Consult Discharge Plan - Plan Referrals: NONE,PCP [Primary Care Provider] - <Beckie Smith - Last Filed: 09/02/17 12:03> Date of Encounter: 09/02/17 All Systems: A 10-system review of systems was performed and is negative for pertinent findings except as documented above in the HPI. Physical Examination Vital Signs: Vital Signs, Last 4 Hours Temp Pulse Resp BP Pulse Ox 09/02/17 11:41 98.9 F 09/02/17 11:00 66 20 151/97 95 09/02/17 10:00 75 20 155/95 95 09/02/17 09:48 16 94 09/02/17 09:20 98.5 F 75 20 133/125 96 09/02/17 08:13 16 140/95 98 09/02/17 08:00 64 14 138/98 Ventilator Settings Ventilator Settings: Ventilator Settings, Last 8 Hours Ventilator Mode CPAP Ventilator Mode CPAP Ventilator Mode A/C Ventilator Mode A/C Ventilator Mode A/C Ventilator Tidal Volume 450 Setting Ventilator Tidal Volume 450 Setting Ventilator Tidal Volume 450 Setting Ventilator Tidal Volume 450 Setting Ventilator Respiratory Rate 16 Setting Ventilator Respiratory Rate 16 Setting Ventilator Respiratory Rate 16 Setting Ventilator Respiratory Rate 16 Setting Actual Respiratory Rate 17 Actual Respiratory Rate 16 Actual Respiratory Rate 16 Positive End Expiratory 5 Pressure Positive End Expiratory 5 Pressure Positive End Expiratory 7 Pressure Positive End Expiratory 7 Pressure Positive End Expiratory 7 Pressure Peak Inspiratory Airway 11 Pressure Peak Inspiratory Airway 11 Pressure Peak Inspiratory Airway 45 Pressure Peak Inspiratory Airway 52 Pressure Results - Laboratory Findings CBC and BMP: 09/02/17 03:40 09/02/17 03:40 ABG ABG pH 7.40 pH Units (7.32-7.45) 09/02/17 05:29 ABG pCO2 42 mmHg (35-45) 09/02/17 05:29 ABG pO2 96 mmHg (85-104) 09/02/17 05:29 ABG O2 Saturation 97 % (95-98) 09/02/17 05:29 PT/INR, D-dimer PT 11.4 Seconds (9.4-12.1) 09/01/17 13:47 Abnormal lab findings: Abnormal lab results ABG Total CO2 27 mEq/L (20-26) H 09/02/17 05:29 VBG pH 7.18 pH Units (7.32-7.42) L* 09/01/17 17:04 VBG pCO2 80 mmHg (41-51) H* 09/01/17 17:04 VBG HCO3 30 mEq/L (21-27) H 09/01/17 17:04 Carboxyhemoglobin 5.2 % (0-5) H 09/01/17 13:47 Glucose 116 mg/dL (70-99) H 09/02/17 03:40 POC Glucose 138 (58-89) H 09/02/17 11:21 Phosphorus 5.1 mg/dL (2.3-4.7) H 09/01/17 14:22 AST 67 Units/L (5-34) H 09/01/17 14:22 Alkaline Phosphatase 192 Units/L (38-126) H 09/01/17 14:22 Creatine Kinase 334 Units/L (29-168) H 09/01/17 14:22 Troponin I 0.37 ng/mL (0-0.03) H* 09/02/17 09:10 B-Natriuretic Peptide 150 pg/mL (0-100) H 09/02/17 03:40 Serum Total Protein 8.6 g/dL (6.0-8.3) H 09/01/17 14:22 Globulin 4.6 g/dL (2.4-3.5) H 09/01/17 14:22 Albumin/Globulin Ratio 0.9 (1.1-2.2) L 09/01/17 14:22 TSH 199.833 mcIU/mL (0.350-4.840) H 09/01/17 14:22 Free T4 0.43 ng/dl (0.70-1.48) L 09/01/17 14:22 Thyroxine (T4) 2.11 mcg/dL (4.87-11.72) L 09/01/17 14:22 Free T3 1.16 pg/mL (1.71-3.71) L 09/01/17 14:22 Urine Protein >=300 mg/dL (Neg-Trace) H 09/01/17 14:18 Urine Glucose (UA) 500 mg/dL (Normal) H 09/01/17 14:18 Urine Blood Moderate (Negative) H 09/01/17 14:18 Urine Microscopic WBC 3-5 per hpf (0-3) H 09/01/17 14:18 Ur Squamous Epith Cells Many per lpf (None-Few) H 09/01/17 14:18 U Benzodiazepines Scrn Positive ng/mL (Npfxob=621) H 09/01/17 14:18 - Clinical Findings Intake & Output: Intake & Output 09/01/17 09/02/17 09/02/17 23:59 07:59 15:59 Intake Total 116.1 / 1181.1 243 / 243 1000 / 1000 Output Total 350 / 350 250 / 250 200 / 200 Balance -233.9 / 831.1 -7 / -7 800 / 800 Weight 117.7 kg 114.7 kg - Attending Attestation I examined this patient and my medical decision-making was reviewed with the Resident Physician. I agree with the documented findings, disposition and treatment plan as described except to the extent set forth below. Patient seen and examined. Labs, radiology, chart personally reviewed. 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 Patient with evidence of hypercapnia which is improved with mechanical ventilation. I suspect hypercapnia could be from hypoventilation and even bronchospasm which would be treated with bronchodilators. Cardiovascular: stable GI: Nutrition per dietary and GI prophylaxis per routine Heme: DVT prophylaxis per routine ID: Continue antibiotics and plan to de-escalation Renal; urine out put and renal funtion reviewed Endorcine: blood glucose is monitored. She did not with evidence of hypothyroidism and adjusting her medications with Synthroid as well as she will need a stress dose steroid for now. Monitor glucose level Lines: all lines checked and no evidence of infections Skin: skin care to prevent pressure ulcers per nursing routine care I spent 35 min of Critical Care time with this patient. It involved decision making of high complexity to assess, manipulate, and support vital organ system failure and/or to prevent further life threatening deterioration of the patient' s condition. The time involved in the performance of separately reportable procedures was not counted toward critical care time.
[2017-09-02] MEDS ORDERED: Dextrose Gel 15 GM PO PRN ×2 (09:26)
[2017-09-02] MEDS ORDERED: D5% in Water 1,000 ML IVC PRN (09:26)
[2017-09-02] MEDS: D5% in 0.45% NACL w KCl 10 MEQ/1,000 ML MLS IVC SCH (09:30)
[2017-09-02] MEDS: Budesonide/Formoterol 160/4.5 MDI IH SCH ×2 (09:48→20:05)
[2017-09-02 10:37] LABS: Hepatitis A Antibody IgM Nonreactive (Nonreactive); Hepatitis B Core IgM Nonreactive (Nonreactive); Hepatitis B Surface Antigen Nonreactive (Nonreactive); Hepatitis C Virus Antibody Nonreactive (Nonreactive)
[2017-09-02] MEDS: amLODIPine 5 MG TABLET PO SCH (11:26)
[2017-09-02] MEDS: Hydrocortisone Sodium Succ 100 MG/2 ML VIAL IVP SCH ×2 (11:26→22:26)
[2017-09-02] MEDS: Insulin LISPRO 300 UNITS/3 ML VIAL SQ SCH ×2 (11:27→15:33)
[2017-09-02] MEDS: Lisinopril 20 MG TABLET PO SCH (11:27)
[2017-09-02] MEDS: Aspirin Enteric Coated 81 MG Tablet PO SCH (11:27)
[2017-09-02] MEDS: Acetaminophen 325 MG TABLET PO PRN ×2 (12:58→19:35)
--- NOTE | 2017-09-02 13:10 | Electrocardiograph Report ---
[address] [place], [place] [address] Test Date: 2017-09-01 Pat Name: Katherine Lo Department: 104 Room: [facility] Gender: F System Administrator: MSC : [id number] Requested By: Dandre Henderson Order Number: [id number] Reading MD: Rosalva Cruz Measurements Intervals [place] Rate: 122 P: 68 [place]: 134 QRS: 56 QRSD: 121 T: 232 QT: 321 QTc: 394 Interpretive Statements SINUS TACHYCARDIA INTRAVENTRICULAR CONDUCTION DELAY [110+ ms QRS DURATION] ST DEVIATION AND MODERATE T-WAVE ABNORMALITY, CONSIDER INFERIOR AND LATERAL ISCHEMIA Electronically Signed On 09-02-2017 12:51:17 EST by Rosalva Cruz
[2017-09-02] MEDS: Ondansetron 4 MG/2 ML VIAL IVP PRN ×2 (13:15→20:09)
--- NOTE | 2017-09-02 15:42 | Electrocardiograph Report ---
[address] [place], [place] [address] Test Date: 2017-09-02 Pat Name: Katherine Lo Department: 109 Room: [facility] Gender: F Land Conservation Specialist: MONICA : [id number] Requested By: Hal Steiner Order Number: [id number] Reading MD: Gianfranco Roche Measurements Intervals [place] Rate: 75 P: 57 [place]: 173 QRS: 57 QRSD: 109 T: 42 QT: 406 QTc: 434 Interpretive Statements SINUS RHYTHM MODERATE T-WAVE ABNORMALITY, CONSIDER INFERIOR ISCHEMIA Electronically Signed On 09-02-2017 15:40:38 EST by Gianfranco Roche
[2017-09-02] MEDS: Famotidine 20 MG TABLET PO SCH (20:55)
[2017-09-02] MEDS ORDERED: Insulin LISPRO 300 UNITS/3 ML VIAL SQ SCH (21:00)
[2017-09-03] MEDS: Acetaminophen 325 MG TABLET PO PRN (03:15)
[2017-09-03 04:20] LABS: Basophils # 0.1 K/mcL (0.0-0.2); Basophils % 0.6 %; Eosinophils % 0.1 %; Hematocrit 48.7 % (35.3-44.9); Hemoglobin 15.5 g/dL (11.5-15.4); Immature Granulocytes % 0.9 % (0-4); Lymphocytes # 1.6 K/mcL (0.6-4.6); Lymphocytes % 10.9 %; Mean Corpuscular HGB Conc 31.8 g/dL (31.6-35.5); Mean Corpuscular Hemoglobin 29.7 pg (28.0-33.3); Mean Corpuscular Volume 93.3 fL (83.0-100.0); Mean Platelet Volume 10.9 fL (9.4-12.4); Monocytes # 0.6 K/mcL (0.0-1.3); Neutrophils # 11.8 K/mcL (1.6-8.9); Platelet Count 222 K/mcL (140-400); Red Blood Count 5.22 M/mcL (3.82-4.97); Segmented Neutrophils % 83.5 %
[2017-09-03 04:29] LABS: BUN/Creatinine Ratio 10 (6-26); Blood Urea Nitrogen 9 mg/dL (7-20); Calcium 9.8 mg/dL (8.6-10.8); Carbon Dioxide 24 mEq/L (19-29); Chloride 103 mEq/L (98-109); Glucose 252 mg/dL (70-99); Osmolality,Calculated 291 (280-300); Potassium 4.4 mEq/L (3.5-4.5); Sodium 137 mEq/L (136-145); eGFR For African Americans > 60 (> 60); eGFR For Non-African Americans > 60 (> 60)
[2017-09-03] MEDS: Lisinopril 20 MG TABLET PO SCH ×2 (04:58→08:57)
[2017-09-03] MEDS: *HR* Enoxaparin 40 MG/0.4 ML SYRINGE SQ SCH (05:02)
[2017-09-03] MEDS: Ondansetron 4 MG/2 ML VIAL IVP PRN (05:06)
[2017-09-03] MEDS: Budesonide/Formoterol 160/4.5 MDI IH SCH ×2 (07:57→20:04)
--- NOTE | 2017-09-03 08:38 | Pulmonology Progress Note ---
<Hal Steiner - Last Filed: 09/03/17 14:15> Date of Encounter: 09/03/17 Time of Encounter: 08:15 Assessment and Plan (1) Acute hypercapnic respiratory failure Current Visit: Yes Status: Resolved - Episode of acute onset dyspnea and unresponsiveness prior to arrival to ED. Intubated in ED. - ABG in ED showed pH 7.07, pCO2 91, pO2 94 and HCO3 26. - Likely multifactorial including myxedema coma, aspiration pneumonia, asthma/ COPD and possible OHS and ABIEL. - CTA chest found no evidence of PE or dissection/aneurysm. - Patient's respiratory status improves as her ABG pH 7.40, pCO2 42, pO2 96 and HCO3 26 on 09/02/17. - Patient was successfully extubated on 09/02/17 and currently tolerates nasal cannula oxygen well since - Synthroid for myxedema coma. - Augmentin for aspiration pneumonia. - Symbicort, bronchodilators and supplemental oxygen for COPD. - Consider CPAP for possible OHS/ABIEL if patient's respiratory status gets worse. - Given patient remains clinically stable, patient can be transferred to medical floor with telemetry monitoring. Patient will be transferred to [facility]. Patient was signed off to admitting hospitalist Dr. De Los Santos. (2) Myxedema coma Current Visit: Yes Status: Acute - TSH 199.833, Free T4 0.43, T4 2.11, Free T3 1.16 on admission. - Likely secondary to abrupt discontinuation of Synthroid for one month. Patient also reports associated worsening generalized weakness, agitated mood and bilateral lower extremity edema. - Improves as patient is now alert and oriented x3. - Continue PO Synthroid 150 mg PO daily. - Discontinue hydrocortisone given patient continues to improve clinically. (3) Aspiration pneumonia Current Visit: Yes Status: Acute - CTA chest found patchy opacities in the lower lobes. - Likely secondary to aspiration during patient's episode of unresponsiveness. - Was On IV clindamycin for 2 days but then switch to PO Augmentin since 09/02 ( Day 2). Qualifiers: Aspiration pneumonia type: unspecified Laterality: bilateral Lung location: lower lobe of lung Qualified Code(s): J69.0 - Pneumonitis due to inhalation of food and vomit (4) Pleuritic chest pain Current Visit: Yes Status: Acute - Left lower chest pain on inspiration/cough per patient. - Likely secondary reported CPR prior to patient's arrival to ED. - Tylenol and Percocet prn pain (5) Elevated troponin I level Current Visit: Yes Status: Acute - Elevated troponin peaked at 0.44 but then adynamic at 0.37. - No significant ischemic change on EKG. - Likely secondary to CPR prior to patient's arrival to ED. - Patient was started on heparin drip but later held due to hematuria. (6) COPD (chronic obstructive pulmonary disease) Current Visit: Yes Status: Chronic - PMH of asthma and COPD per patient. Patient denies home oxygen use. - Continue Symbicort and bronchodilators. Qualifiers: COPD type: unspecified COPD Qualified Code(s): J44.9 - Chronic obstructive pulmonary disease, unspecified (7) Essential hypertension Current Visit: Yes Status: Chronic - BP as high as 190s/110s this morning. - Continue home dose lisinopril and increase amlodipine to 5 mg daily. Also add hydralazine prn. (8) Diabetes mellitus Current Visit: Yes Status: Chronic - Glucose 401 on admission. Glucose in 200s this morning. - Increase insulin sliding scale to medium corrective regimen. - Diabetic diet. Qualifiers: Diabetes mellitus type: type 2 Diabetes mellitus complication status: with hyperglycemia Diabetes mellitus superintendent terminal insulin use: unspecified superintendent terminal insulin use status Qualified Code(s): E11.65 - Type 2 diabetes mellitus with hyperglycemia (9) DVT prophylaxis Current Visit: Yes Status: Acute - Continue SQ Lovenox. Subjective Principal diagnosis: Acute hypercapnic respiratory failure Interval history: No significant event noted overnight. Patient was seen and examined this morning. Patient still has some cough and generalized weakness but feels better , especially for her breathing, compared to yesterday. Patient still has left lower chest pain aggravated by inspiration or cough. Patient denies fever, chills. Objective PUL Vital signs: Last Vital Signs Temp 98.0 F 09/03/17 07:35 Pulse 62 09/03/17 06:00 Resp 18 09/03/17 07:58 BP 133/91 09/03/17 06:00 Pulse Ox 98 09/03/17 07:58 General appearance: no acute distress, alert Eyes: nonicteric ENT: oropharynx moist Neck: supple Effort: normal Auscultation: bilateral: diminished breath sounds, wheezes (few) Cardiovascular: regular rate and rhythm Gastrointestinal: normoactive bowel sounds, soft, non-tender, non-distended Integumentary: normal Extremities: no cyanosis Musculoskeletal: no deformities normal mental status, non-focal exam mood appropriate Results - Laboratory Findings CBC and BMP: 09/03/17 03:50 09/03/17 03:50 ABG ABG pH 7.40 pH Units (7.32-7.45) 09/02/17 05:29 ABG pCO2 42 mmHg (35-45) 09/02/17 05:29 ABG pO2 96 mmHg (85-104) 09/02/17 05:29 ABG O2 Saturation 97 % (95-98) 09/02/17 05:29 PT/INR, D-dimer PT 11.4 Seconds (9.4-12.1) 09/01/17 13:47 Abnormal lab findings: Abnormal lab results WBC 14.2 K/mcL (4.3-11.1) H 09/03/17 03:50 RBC 5.22 M/mcL (3.82-4.97) H 09/03/17 03:50 Hgb 15.5 g/dL (11.5-15.4) H D 09/03/17 03:50 Hct 48.7 % (35.3-44.9) H 09/03/17 03:50 Neutrophils # 11.8 K/mcL (1.6-8.9) H 09/03/17 03:50 ABG Total CO2 27 mEq/L (20-26) H 09/02/17 05:29 VBG pH 7.18 pH Units (7.32-7.42) L* 09/01/17 17:04 VBG pCO2 80 mmHg (41-51) H* 09/01/17 17:04 VBG HCO3 30 mEq/L (21-27) H 09/01/17 17:04 Carboxyhemoglobin 5.2 % (0-5) H 09/01/17 13:47 Glucose 252 mg/dL (70-99) H 09/03/17 03:50 POC Glucose 234 (58-89) H 09/03/17 07:18 Phosphorus 5.1 mg/dL (2.3-4.7) H 09/01/17 14:22 AST 67 Units/L (5-34) H 09/01/17 14:22 Alkaline Phosphatase 192 Units/L (38-126) H 09/01/17 14:22 Creatine Kinase 334 Units/L (29-168) H 09/01/17 14:22 Troponin I 0.37 ng/mL (0-0.03) H* 09/02/17 09:10 B-Natriuretic Peptide 150 pg/mL (0-100) H 09/02/17 03:40 Serum Total Protein 8.6 g/dL (6.0-8.3) H 09/01/17 14:22 Globulin 4.6 g/dL (2.4-3.5) H 09/01/17 14:22 Albumin/Globulin Ratio 0.9 (1.1-2.2) L 09/01/17 14:22 TSH 199.833 mcIU/mL (0.350-4.840) H 09/01/17 14:22 Free T4 0.43 ng/dl (0.70-1.48) L 09/01/17 14:22 Thyroxine (T4) 2.11 mcg/dL (4.87-11.72) L 09/01/17 14:22 Free T3 1.16 pg/mL (1.71-3.71) L 09/01/17 14:22 Urine Protein >=300 mg/dL (Neg-Trace) H 09/01/17 14:18 Urine Glucose (UA) 500 mg/dL (Normal) H 09/01/17 14:18 Urine Blood Moderate (Negative) H 09/01/17 14:18 Urine Microscopic WBC 3-5 per hpf (0-3) H 09/01/17 14:18 Ur Squamous Epith Cells Many per lpf (None-Few) H 09/01/17 14:18 U Benzodiazepines Scrn Positive ng/mL (Ybzjpm=634) H 09/01/17 14:18 - Clinical Findings Intake & Output: Intake & Output 09/02/17 09/03/17 09/03/17 23:59 07:59 15:59 Intake Total 200 / 200 500 / 500 Output Total 100 / 100 1100 / 1100 Balance 100 / 100 -600 / -600 Weight 117.4 kg Consult Discharge Plan - Plan Referrals: NONE,PCP [Primary Care Provider] - <Beckie Smith - Last Filed: 09/03/17 14:39> Date of Encounter: 09/03/17 Objective PUL Vital signs: Last Vital Signs Temp 98.2 F 09/03/17 11:37 Pulse 62 09/03/17 11:30 Resp 21 09/03/17 11:30 BP 159/92 09/03/17 11:30 Pulse Ox 97 09/03/17 11:30 Results - Laboratory Findings CBC and BMP: 09/03/17 03:50 09/03/17 03:50 ABG ABG pH 7.40 pH Units (7.32-7.45) 09/02/17 05:29 ABG pCO2 42 mmHg (35-45) 09/02/17 05:29 ABG pO2 96 mmHg (85-104) 09/02/17 05:29 ABG O2 Saturation 97 % (95-98) 09/02/17 05:29 PT/INR, D-dimer PT 11.4 Seconds (9.4-12.1) 09/01/17 13:47 Abnormal lab findings: Abnormal lab results WBC 14.2 K/mcL (4.3-11.1) H 09/03/17 03:50 RBC 5.22 M/mcL (3.82-4.97) H 09/03/17 03:50 Hgb 15.5 g/dL (11.5-15.4) H D 09/03/17 03:50 Hct 48.7 % (35.3-44.9) H 09/03/17 03:50 Neutrophils # 11.8 K/mcL (1.6-8.9) H 09/03/17 03:50 ABG Total CO2 27 mEq/L (20-26) H 09/02/17 05:29 VBG pH 7.18 pH Units (7.32-7.42) L* 09/01/17 17:04 VBG pCO2 80 mmHg (41-51) H* 09/01/17 17:04 VBG HCO3 30 mEq/L (21-27) H 09/01/17 17:04 Carboxyhemoglobin 5.2 % (0-5) H 09/01/17 13:47 Glucose 252 mg/dL (70-99) H 09/03/17 03:50 POC Glucose 179 (58-89) H 09/03/17 11:13 Phosphorus 5.1 mg/dL (2.3-4.7) H 09/01/17 14:22 AST 67 Units/L (5-34) H 09/01/17 14:22 Alkaline Phosphatase 192 Units/L (38-126) H 09/01/17 14:22 Creatine Kinase 334 Units/L (29-168) H 09/01/17 14:22 Troponin I 0.37 ng/mL (0-0.03) H* 09/02/17 09:10 B-Natriuretic Peptide 150 pg/mL (0-100) H 09/02/17 03:40 Serum Total Protein 8.6 g/dL (6.0-8.3) H 09/01/17 14:22 Globulin 4.6 g/dL (2.4-3.5) H 09/01/17 14:22 Albumin/Globulin Ratio 0.9 (1.1-2.2) L 09/01/17 14:22 TSH 199.833 mcIU/mL (0.350-4.840) H 09/01/17 14:22 Free T4 0.43 ng/dl (0.70-1.48) L 09/01/17 14:22 Thyroxine (T4) 2.11 mcg/dL (4.87-11.72) L 09/01/17 14:22 Free T3 1.16 pg/mL (1.71-3.71) L 09/01/17 14:22 Urine Protein >=300 mg/dL (Neg-Trace) H 09/01/17 14:18 Urine Glucose (UA) 500 mg/dL (Normal) H 09/01/17 14:18 Urine Blood Moderate (Negative) H 09/01/17 14:18 Urine Microscopic WBC 3-5 per hpf (0-3) H 09/01/17 14:18 Ur Squamous Epith Cells Many per lpf (None-Few) H 09/01/17 14:18 U Benzodiazepines Scrn Positive ng/mL (Sqkcfd=458) H 09/01/17 14:18 - Clinical Findings Intake & Output: Intake & Output 09/02/17 09/03/17 09/03/17 23:59 07:59 15:59 Intake Total 200 / 200 500 / 500 Output Total 100 / 100 1100 / 1100 Balance 100 / 100 -600 / -600 Weight 117.4 kg - Attending Attestation I examined this patient and my medical decision-making was reviewed with the Resident Physician. I agree with the documented findings, disposition and treatment plan as described except to the extent set forth below. Patient seen and examined. Labs, radiology, chart personally reviewed. Agree with resident's history and physical, assessment, plan with following comments: BOGGER OPERATOR: Patient follows commands, Pulmonary: Acceptable oxygenation and ventilation. Continue bronchodilators.. I suspect patient has sleep disorder breathing and follow-up as outpatient is recommended. Cardiovascular: stable. Patient with hypertension and she needs to be compliant with her medications and adjust blood pressure medications. I feel patient will not be good candidate for clonidine as outpatient mainly because of the compliancy. GI: Nutrition per dietary and GI prophylaxis per routine Heme: DVT prophylaxis per routine ID: Continue antibiotics and plan to de-escalation Renal; urine out put and renal funtion reviewed Endorcine: blood glucose is monitored. Continue thyroid replacement and also stop systemic steroid. Lines: all lines checked and no evidence of infections Skin: skin care to prevent pressure ulcers per nursing routine care Overall patient stable to be transferred to the floor.
[2017-09-03] MEDS: Famotidine 20 MG TABLET PO SCH ×2 (08:56→20:44)
[2017-09-03] MEDS: amLODIPine 5 MG TABLET PO SCH (08:58)
[2017-09-03] MEDS: Aspirin Enteric Coated 81 MG Tablet PO SCH (08:58)
[2017-09-03] MEDS: Insulin LISPRO 300 UNITS/3 ML VIAL SQ SCH ×3 (08:59→20:46)
[2017-09-03] MEDS ORDERED: Isosorbide MONOnitrate (24 HR) 60 MG TAB.ER.24H PO SCH (09:00)
[2017-09-03] MEDS ORDERED: *HR* OxyCODONE/APAP 5/325 TABLET PO PRN (09:06)
[2017-09-03] MEDS ORDERED: hydrOXYzine pamoate 25 MG CAPSULE PO PRN ×2 (09:23→12:32)
[2017-09-03] MEDS ORDERED: Insulin LISPRO 300 UNITS/3 ML VIAL SQ SCH ×4 (09:52→21:00)
[2017-09-03] MEDS ORDERED: clonazePAM 0.5 MG TABLET PO PRN (11:01)
[2017-09-03] MEDS ORDERED: amLODIPine 5 MG TABLET PO ONE (11:05)
[2017-09-03] MEDS ORDERED: amLODIPine 5 MG TABLET PO SCH (11:06)
[2017-09-03] MEDS ORDERED: Dextrose Gel 15 GM PO PRN ×2 (12:32)
[2017-09-03] MEDS ORDERED: D5% in Water 1,000 ML IVC PRN (12:32)
[2017-09-03] MEDS ORDERED: Acetaminophen 325 MG TABLET PO PRN (12:32)
[2017-09-03] MEDS ORDERED: Ondansetron 4 MG/2 ML VIAL IVP PRN (12:32)
[2017-09-03] MEDS ORDERED: Naloxone 0.4 MG/ML INJ IVP PRN (12:32)
[2017-09-03] MEDS: clonazePAM 0.5 MG TABLET PO PRN (14:13)
[2017-09-03] MEDS: *HR* OxyCODONE/APAP 5/325 TABLET PO PRN (18:36)
[2017-09-04 05:47] LABS: Basophils # 0.1 K/mcL (0.0-0.2); Basophils % 0.6 %; Eosinophils # 0.1 K/mcL (0.0-0.6); Eosinophils % 1.4 %; Hematocrit 36.7 % (35.3-44.9); Immature Granulocytes % 0.4 % (0-4); Lymphocytes # 2.3 K/mcL (0.6-4.6); Lymphocytes % 23.5 %; Mean Corpuscular HGB Conc 31.6 g/dL (31.6-35.5); Mean Corpuscular Hemoglobin 29.7 pg (28.0-33.3); Mean Corpuscular Volume 93.9 fL (83.0-100.0); Monocytes # 0.6 K/mcL (0.0-1.3); Monocytes % 6.4 %; Neutrophils # 6.5 K/mcL (1.6-8.9); Platelet Count 225 K/mcL (140-400); Red Blood Count 3.91 M/mcL (3.82-4.97); Red Cell Distribution Width 14.3 % (11.5-14.5); Segmented Neutrophils % 67.7 %
[2017-09-04 05:48] LABS: Hemoglobin 11.6 g/dL (11.5-15.4)
[2017-09-04] MEDS: *HR* Enoxaparin 40 MG/0.4 ML SYRINGE SQ SCH (05:54)
[2017-09-04 06:02] LABS: BUN/Creatinine Ratio 10 (6-26); Blood Urea Nitrogen 8 mg/dL (7-20); Calcium 9.2 mg/dL (8.6-10.8); Carbon Dioxide 29 mEq/L (19-29); Chloride 101 mEq/L (98-109); Glucose 196 mg/dL (70-99); Osmolality,Calculated 292 (280-300); Potassium 4.4 mEq/L (3.5-4.5); Sodium 139 mEq/L (136-145); eGFR For African Americans > 60 (> 60); eGFR For Non-African Americans > 60 (> 60)
[2017-09-04 07:01] LABS: Thyroglobulin Antibody 837.9 IU/mL (0.0-4.0)
[2017-09-04] MEDS: Insulin LISPRO 300 UNITS/3 ML VIAL SQ SCH ×4 (08:30→20:52)
[2017-09-04] MEDS: amLODIPine 5 MG TABLET PO SCH (08:31)
[2017-09-04] MEDS: Famotidine 20 MG TABLET PO SCH ×2 (08:31→20:50)
[2017-09-04] MEDS: Isosorbide MONOnitrate (24 HR) 60 MG TAB.ER.24H PO SCH (08:31)
[2017-09-04] MEDS: Aspirin Enteric Coated 81 MG Tablet PO SCH (08:31)
[2017-09-04] MEDS: Lisinopril 20 MG TABLET PO SCH (08:32)
[2017-09-04] MEDS: Budesonide/Formoterol 160/4.5 MDI IH SCH ×2 (08:33→20:16)
[2017-09-04] MEDS: *HR* OxyCODONE/APAP 5/325 TABLET PO PRN (08:44)
[2017-09-04] MEDS ORDERED: Acetaminophen 325 MG TABLET PO PRN (12:55)
[2017-09-04] MEDS ORDERED: *HR* OxyCODONE/APAP 5/325 TABLET PO PRN (12:56)
--- NOTE | 2017-09-04 14:46 | Internal Med Progress Note ---
Date of Encounter: 09/04/17 Time of Encounter: 14:43 - Assessment and plan (1) Acute hypercapnic respiratory failure Current Visit: Yes Status: Resolved (2) Pneumonia Current Visit: Yes Status: Acute Qualifiers: Pneumonia type: due to unspecified organism Laterality: unspecified laterality Lung location: unspecified part of lung Qualified Code(s): J18.9 - Pneumonia, unspecified organism (3) Myxedema coma Current Visit: Yes Status: Acute (4) COPD exacerbation Current Visit: Yes Status: Acute (5) Nicotine abuse Current Visit: No Status: Acute (6) Elevated troponin Current Visit: Yes Status: Acute (7) Diabetes mellitus Current Visit: Yes Status: Chronic Qualifiers: Diabetes mellitus type: type 2 Diabetes mellitus complication status: with hyperglycemia Diabetes mellitus senior care insulin use: unspecified bed bug exterminator insulin use status Qualified Code(s): E11.65 - Type 2 diabetes mellitus with hyperglycemia (8) Chest pain Current Visit: Yes Status: Acute Qualifiers: Chest pain type: chest pain on breathing Qualified Code(s): R07.1 - Chest pain on breathing; R07.81 - Pleurodynia - Subjective Interval history: Patient is transferred from intensive care unit. She was admitted with acute respiratory failure, myxedema, acute exacerbation of COPD and pneumonia. She has diabetes. Patient complains about left-sided pleuritic chest pain which she has since admission. I will add some ibuprofen when necessary for that. It is a localized pleuritic pain classical for pleurisy. I will continue her antibiotics but I noted that she is not on his steroids and her lungs sounds are quite diminished therefore micky Medrol will be added. Patient refused to take nebulizer as they make her sick therefore we will continue with MDIs which she tolerates better. She is a strongly recommended to quit his smoking and offered the nicotine patch. She came in with myxedema as she stopped taking her medication and in ICU Synthroid 150 g have been started. I will recheck TSH as it is expected to come down from her initial level of 199. She is needing 2 L of oxygen right now. CBC CMP repeated. Order echo if not done yet. - Constitutional Vitals: Temp Pulse Resp BP Pulse Ox 98.1 F 59 16 117/64 98 09/04/17 11:23 09/04/17 11:23 09/04/17 11:35 09/04/17 11:23 09/04/17 11:35 General appearance: Present: A&O X 3, morbidly obese, answers questions appropriately - Head Head exam: Present: atraumatic, normocephalic - Eye Eye exam: Present: PERRL, conjuntiva pink, sclera anicteric Pupils: Present: PERRL - Neck Neck exam general surgery: Present: supple, trachea midline. Absent: lymphadenopathy - Respiratory Respiratory exam: Present: decreased breath sounds. Absent: accessory muscle use, rales, rhonchi, wheezes - Cardiovascular Cardiovascular exam: Present: RRR, +S1, +S2. Absent: diastolic murmur, gallop, rubs, systolic murmur - GI/Abdominal GI/Abdominal exam: Present: normal bowel sounds, soft, no peritoneal signs. Absent: distended, tenderness - Extremities Exam Extremities exam: Present: pedal edema, warm, radial pulses palpable and symmetrical. Absent: calf tenderness, cyanotic - Neurological Exam Neurological exam: Present: CN II-XII intact, oriented X3, no focal deficits. Absent: pronater drift, facial droop, speech deficit - Skin Skin exam: Present: dry, intact Internal Medicine: Result - Labs CBC & Chem 7: 09/04/17 05:12 09/04/17 05:12 Labs: Short CBC 09/04/17 Range/Units 05:12 WBC 9.6 (4.3-11.1) K/mcL Hgb 11.6 D (11.5-15.4) g/dL Hct 36.7 (35.3-44.9) % Plt Count 225 (140-400) K/mcL Neutrophils # 6.5 (1.6-8.9) K/mcL BMP 09/04/17 05:12 Sodium 139 Potassium 4.4 Chloride 101 Carbon Dioxide 29 BUN 8 Creatinine 0.84 Glucose 196 H Calcium 9.2 - ABG Interpretation ABG results: ABG ABG pH 7.40 pH Units (7.32-7.45) 09/02/17 05:29 ABG pCO2 42 mmHg (35-45) 09/02/17 05:29 ABG pO2 96 mmHg (85-104) 09/02/17 05:29 ABG O2 Saturation 97 % (95-98) 09/02/17 05:29 PT/INR, D-dimer PT 11.4 Seconds (9.4-12.1) 09/01/17 13:47 Consult Discharge Plan - Plan Referrals: NONE,PCP [Primary Care Provider] -
[2017-09-04] MEDS: methylPREDNISolone 125 MG/2 ML VIAL IVP SCH (15:41)
[2017-09-04] MEDS: Ibuprofen 600 MG TABLET PO SCH ×2 (15:41→20:50)
[2017-09-05] MEDS: methylPREDNISolone 125 MG/2 ML VIAL IVP SCH ×3 (00:10→17:22)
[2017-09-05] MEDS: *HR* Enoxaparin 40 MG/0.4 ML SYRINGE SQ SCH (05:16)
[2017-09-05] MEDS: Budesonide/Formoterol 160/4.5 MDI IH SCH ×2 (07:39→22:49)
[2017-09-05] MEDS: Ibuprofen 600 MG TABLET PO SCH ×3 (07:49→21:53)
[2017-09-05] MEDS: amLODIPine 5 MG TABLET PO SCH ×2 (07:50→17:07)
[2017-09-05] MEDS: Isosorbide MONOnitrate (24 HR) 60 MG TAB.ER.24H PO SCH (07:50)
[2017-09-05] MEDS: Famotidine 20 MG TABLET PO SCH ×2 (07:50→21:53)
[2017-09-05] MEDS: Aspirin Enteric Coated 81 MG Tablet PO SCH (07:50)
[2017-09-05] MEDS: Lisinopril 20 MG TABLET PO SCH (07:50)
[2017-09-05] MEDS: Insulin LISPRO 300 UNITS/3 ML VIAL SQ SCH ×4 (07:51→21:55)
--- NOTE | 2017-09-05 09:00 | Internal Med Progress Note ---
Date of Encounter: 09/05/17 Time of Encounter: 08:57 - Assessment and plan (1) Acute hypercapnic respiratory failure Current Visit: Yes Status: Resolved (2) Pneumonia Current Visit: Yes Status: Acute Qualifiers: Pneumonia type: due to unspecified organism Laterality: unspecified laterality Lung location: unspecified part of lung Qualified Code(s): J18.9 - Pneumonia, unspecified organism (3) Myxedema coma Current Visit: Yes Status: Acute (4) COPD exacerbation Current Visit: Yes Status: Acute (5) Nicotine abuse Current Visit: No Status: Acute (6) Elevated troponin Current Visit: Yes Status: Acute (7) Diabetes mellitus Current Visit: Yes Status: Chronic Qualifiers: Diabetes mellitus type: type 2 Diabetes mellitus complication status: with hyperglycemia Diabetes mellitus snf insulin use: unspecified manager terminal insulin use status Qualified Code(s): E11.65 - Type 2 diabetes mellitus with hyperglycemia (8) Chest pain Current Visit: Yes Status: Acute Qualifiers: Chest pain type: chest pain on breathing Qualified Code(s): R07.1 - Chest pain on breathing; R07.81 - Pleurodynia - Subjective Interval history: Patient is transferred from intensive care unit. She was admitted with acute respiratory failure, myxedema, acute exacerbation of COPD and pneumonia. She has diabetes. Patient complains about left-sided pleuritic chest pain which she has since admission. I will add some ibuprofen when necessary for that. It is a localized pleuritic pain classical for pleurisy. I will continue her antibiotics but I noted that she is not on his steroids and her lungs sounds are quite diminished therefore micky Medrol will be added. Patient refused to take nebulizer as they make her sick therefore we will continue with MDIs which she tolerates better. She is a strongly recommended to quit his smoking and offered the nicotine patch. She came in with myxedema as she stopped taking her medication and in ICU Synthroid 150 g have been started. I will recheck TSH as it is expected to come down from her initial level of 199. She is needing 2 L of oxygen right now. CBC CMP repeated. Order echo if not done yet. 09/05 ICU transfer admitted for acute respiratory failure and diagnosed with COPD exacerbation and pneumonia. Yesterday IV steroid was added. Patient is on inhalers she cannot tolerate nebulizer. Blood sugars are up and insulin readjusted. Blood pressure was noted elevated therefore Norvasc has been increased to 10 mg daily. On admission patient had TSH 199. Her Synthroid was restarted. Heart TSH is 16. Continue current dose and repeat TSH in couple of weeks. Her troponin was also elevated on admission. However echocardiogram showed EF about 60% with normal LV systolic function and no wall motion abnormality or valvular abnormality and diastolic dysfunction. I suspect elevation of troponin could be related to severe hypo-thyroidism. Her pleurisy improved with ibuprofen but I noted she still cannot take full breath and on incentive spirometry and she can barely do 900 mL. I will add Machias along with ibuprofen for pleurisy. Patient states that now she has some sputum coming which is a good sign. I will add some Mucinex. She does not feel very good with albuterol nebs and feel worse and that the reason she is reluctant to use albuterol nebs. I recommended if he can try Xopenex as she does not seem to have allergy of anaphylaxis to albuterol and see if it helps. Patient agrees. - Constitutional Vitals: Temp Pulse Resp BP Pulse Ox 98.5 F 62 16 187/84 97 09/05/17 07:07 09/05/17 07:07 09/05/17 07:07 09/05/17 07:07 09/05/17 07:07 General appearance: Present: A&O X 3, morbidly obese, answers questions appropriately - Head Head exam: Present: atraumatic, normocephalic - Eye Eye exam: Present: PERRL, conjuntiva pink, sclera anicteric Pupils: Present: PERRL - Neck Neck exam general surgery: Present: supple, trachea midline. Absent: lymphadenopathy - Respiratory Respiratory exam: Present: decreased breath sounds, wheezes. Absent: accessory muscle use, rales, rhonchi - Cardiovascular Cardiovascular exam: Present: RRR, +S1, +S2. Absent: diastolic murmur, gallop, rubs, systolic murmur - GI/Abdominal GI/Abdominal exam: Present: normal bowel sounds, soft, no peritoneal signs. Absent: distended, tenderness - Extremities Exam Extremities exam: Present: warm, radial pulses palpable and symmetrical. Absent : calf tenderness, cyanotic, pedal edema - Neurological Exam Neurological exam: Present: CN II-XII intact, oriented X3, no focal deficits. Absent: pronater drift, facial droop, speech deficit - Skin Skin exam: Present: dry, intact Internal Medicine: Result - Labs CBC & Chem 7: 09/04/17 05:12 09/04/17 05:12 - ABG Interpretation ABG results: ABG ABG pH 7.40 pH Units (7.32-7.45) 09/02/17 05:29 ABG pCO2 42 mmHg (35-45) 09/02/17 05:29 ABG pO2 96 mmHg (85-104) 09/02/17 05:29 ABG O2 Saturation 97 % (95-98) 09/02/17 05:29 PT/INR, D-dimer PT 11.4 Seconds (9.4-12.1) 09/01/17 13:47 Consult Discharge Plan - Plan Referrals: NONE,PCP [Primary Care Provider] -
[2017-09-05] MEDS: clonazePAM 0.5 MG TABLET PO PRN (09:21)
[2017-09-05] MEDS: Levalbuterol Neb 1.25 MG/3 ML IH SCH ×3 (11:20→22:49)
[2017-09-05] MEDS ORDERED: Insulin LISPRO 300 UNITS/3 ML VIAL SQ SCH (16:30)
[2017-09-05] MEDS ORDERED: Insulin DETEMIR 100 UNIT/ML X5UNITS SQ SCH (21:00)
[2017-09-05] MEDS: Insulin DETEMIR 100 UNIT/ML X5UNITS SQ SCH (21:54)
[2017-09-06] MEDS: methylPREDNISolone 125 MG/2 ML VIAL IVP SCH ×3 (00:39→16:40)
[2017-09-06] MEDS: Levalbuterol Neb 1.25 MG/3 ML IH SCH ×4 (04:48→21:19)
[2017-09-06] MEDS: *HR* Enoxaparin 40 MG/0.4 ML SYRINGE SQ SCH (06:00)
--- NOTE | 2017-09-06 08:30 | Internal Med Progress Note ---
Date of Encounter: 09/06/17 Time of Encounter: 08:28 - Assessment and plan (1) Acute hypercapnic respiratory failure Current Visit: Yes Status: Resolved Assessment and plan: Transferred from ICU. On presentation she was in acute hypoxemic respiratory distress (2) Pneumonia Current Visit: Yes Status: Acute Assessment and plan: On Augmentin, cultures negative, afebrile WBC have normalized now. Qualifiers: Pneumonia type: due to unspecified organism Laterality: unspecified laterality Lung location: unspecified part of lung Qualified Code(s): J18.9 - Pneumonia, unspecified organism (3) Myxedema coma Current Visit: Yes Status: Acute Assessment and plan: On presentation TSH 199 as patient was not taking her Synthroid. Synthroid 150 g started and repeat TSH level has come down to 16. Probably need a repeat test in next couple of weeks and if TSH is status above 5 than need further upgrade of dose. (4) COPD exacerbation Current Visit: Yes Status: Acute Assessment and plan: On IV steroids and Mucinex and Xopenex. She cannot tolerate duo nebulizers but seems to tolerate Xopenex okay. Slow recovery. I will try to add Atrovent nebulizer to see if she tolerates that also. Pleuritic chest pain is not letting her take deep inspiration. Increased secretions and able to spit out now. On 2 L oxygen. She does not take home oxygen (5) Nicotine abuse Current Visit: Yes Status: Acute (6) Elevated troponin Current Visit: Yes Status: Acute Assessment and plan: Her troponin was also elevated on admission. However echocardiogram showed EF about 60% with normal LV systolic function and no wall motion abnormality or valvular abnormality and diastolic dysfunction. I suspect elevation of troponin could be related to severe hypo-thyroidism. (7) Diabetes mellitus Current Visit: Yes Status: Chronic Assessment and plan: Continue sliding scale coverage Accu-Chek before meals and at bedtime Qualifiers: Diabetes mellitus type: type 2 Diabetes mellitus complication status: with hyperglycemia Diabetes mellitus usp insulin use: unspecified fruit cutter insulin use status Qualified Code(s): E11.65 - Type 2 diabetes mellitus with hyperglycemia (8) Chest pain Current Visit: Yes Status: Acute Assessment and plan: Pleuritic in nature responded well to ibuprofen and [place] has been added yesterday as she is still not taking full deep breath Qualifiers: Chest pain type: chest pain on breathing Qualified Code(s): R07.1 - Chest pain on breathing; R07.81 - Pleurodynia - Subjective Interval history: Patient is transferred from intensive care unit. She was admitted with acute respiratory failure, myxedema, acute exacerbation of COPD and pneumonia. She has diabetes. Patient complains about left-sided pleuritic chest pain which she has since admission. I will add some ibuprofen when necessary for that. It is a localized pleuritic pain classical for pleurisy. I will continue her antibiotics but I noted that she is not on his steroids and her lungs sounds are quite diminished therefore micky Medrol will be added. Patient refused to take nebulizer as they make her sick therefore we will continue with MDIs which she tolerates better. She is a strongly recommended to quit his smoking and offered the nicotine patch. She came in with myxedema as she stopped taking her medication and in ICU Synthroid 150 g have been started. I will recheck TSH as it is expected to come down from her initial level of 199. She is needing 2 L of oxygen right now. CBC CMP repeated. Order echo if not done yet. 09/05 ICU transfer admitted for acute respiratory failure and diagnosed with COPD exacerbation and pneumonia. Yesterday IV steroid was added. Patient is on inhalers she cannot tolerate nebulizer. Blood sugars are up and insulin readjusted. Blood pressure was noted elevated therefore Norvasc has been increased to 10 mg daily. On admission patient had TSH 199. Her Synthroid was restarted. Heart TSH is 16. Continue current dose and repeat TSH in couple of weeks. Her troponin was also elevated on admission. However echocardiogram showed EF about 60% with normal LV systolic function and no wall motion abnormality or valvular abnormality and diastolic dysfunction. I suspect elevation of troponin could be related to severe hypo-thyroidism. Her pleurisy improved with ibuprofen but I noted she still cannot take full breath and on incentive spirometry and she can barely do 900 mL. I will add Gilbert along with ibuprofen for pleurisy. Patient states that now she has some sputum coming which is a good sign. I will add some Mucinex. She does not feel very good with albuterol nebs and feel worse and that the reason she is reluctant to use albuterol nebs. I recommended if he can try Xopenex as she does not seem to have allergy of anaphylaxis to albuterol and see if it helps. Patient agrees. 09/06 is still dyspneic on incentive spirometry does only 800 mL. Chest pain has improved but is still occurs on deep inspiration. - Constitutional Vitals: Temp Pulse Resp BP Pulse Ox 98.4 F 69 18 185/86 97 09/06/17 07:33 09/06/17 07:33 09/06/17 07:33 09/06/17 07:33 09/06/17 07:33 General appearance: Present: A&O X 3, morbidly obese, answers questions appropriately - Head Head exam: Present: atraumatic, normocephalic - Eye Eye exam: Present: PERRL, conjuntiva pink, sclera anicteric Pupils: Present: PERRL - Neck Neck exam general surgery: Present: supple, trachea midline. Absent: lymphadenopathy - Respiratory Respiratory exam: Present: decreased breath sounds, wheezes. Absent: accessory muscle use, rales, rhonchi - Cardiovascular Cardiovascular exam: Present: RRR, +S1, +S2. Absent: diastolic murmur, gallop, rubs, systolic murmur - GI/Abdominal GI/Abdominal exam: Present: normal bowel sounds, soft, no peritoneal signs. Absent: distended, tenderness - Extremities Exam Extremities exam: Present: warm, radial pulses palpable and symmetrical. Absent : calf tenderness, cyanotic, pedal edema - Neurological Exam Neurological exam: Present: CN II-XII intact, oriented X3, no focal deficits. Absent: pronater drift, facial droop, speech deficit - Skin Skin exam: Present: dry, intact Internal Medicine: Result - Labs CBC & Chem 7: 09/04/17 05:12 09/04/17 05:12 - ABG Interpretation ABG results: ABG ABG pH 7.40 pH Units (7.32-7.45) 09/02/17 05:29 ABG pCO2 42 mmHg (35-45) 09/02/17 05:29 ABG pO2 96 mmHg (85-104) 09/02/17 05:29 ABG O2 Saturation 97 % (95-98) 09/02/17 05:29 PT/INR, D-dimer PT 11.4 Seconds (9.4-12.1) 09/01/17 13:47 Consult Discharge Plan - Plan Referrals: NONE,PCP [Primary Care Provider] -
[2017-09-06] MEDS: Ibuprofen 600 MG TABLET PO SCH (09:07)
[2017-09-06] MEDS: Lisinopril 20 MG TABLET PO SCH (09:07)
[2017-09-06] MEDS: Isosorbide MONOnitrate (24 HR) 60 MG TAB.ER.24H PO SCH (09:07)
[2017-09-06] MEDS: amLODIPine 5 MG TABLET PO SCH (09:08)
[2017-09-06] MEDS: Aspirin Enteric Coated 81 MG Tablet PO SCH (09:08)
[2017-09-06] MEDS: Famotidine 20 MG TABLET PO SCH ×2 (09:08→21:17)
[2017-09-06] MEDS: Insulin LISPRO 300 UNITS/3 ML VIAL SQ SCH ×7 (09:09→21:15)
[2017-09-06] MEDS: Budesonide/Formoterol 160/4.5 MDI IH SCH ×2 (10:50→21:20)
[2017-09-06] MEDS ORDERED: hydrALAZINE 25 MG TABLET PO PRN (12:36)
[2017-09-06] MEDS: hydrALAZINE 25 MG TABLET PO SCH (16:40)
[2017-09-06] MEDS: Insulin DETEMIR 100 UNIT/ML X5UNITS SQ SCH (21:17)
[2017-09-06] MEDS: *HR* HYDROcodone/Acet 5/325 mg TABLET PO SCH (21:26)
[2017-09-07] MEDS: methylPREDNISolone 125 MG/2 ML VIAL IVP SCH ×3 (00:18→16:39)
[2017-09-07] MEDS: hydrALAZINE 25 MG TABLET PO SCH ×3 (00:18→16:39)
[2017-09-07] MEDS: *HR* HYDROcodone/Acet 5/325 mg TABLET PO SCH ×3 (00:45→16:39)
[2017-09-07] MEDS: Levalbuterol Neb 1.25 MG/3 ML IH SCH ×4 (04:25→22:38)
[2017-09-07] MEDS: *HR* Enoxaparin 40 MG/0.4 ML SYRINGE SQ SCH (05:55)
[2017-09-07] MEDS: amLODIPine 5 MG TABLET PO SCH (08:17)
[2017-09-07] MEDS: Isosorbide MONOnitrate (24 HR) 60 MG TAB.ER.24H PO SCH (08:19)
[2017-09-07] MEDS: Aspirin Enteric Coated 81 MG Tablet PO SCH (08:19)
[2017-09-07] MEDS: Famotidine 20 MG TABLET PO SCH ×2 (08:19→21:28)
[2017-09-07] MEDS: Lisinopril 20 MG TABLET PO SCH (08:19)
[2017-09-07] MEDS: Insulin LISPRO 300 UNITS/3 ML VIAL SQ SCH ×7 (08:20→21:32)
[2017-09-07] MEDS: clonazePAM 0.5 MG TABLET PO PRN (08:39)
[2017-09-07] MEDS: Budesonide/Formoterol 160/4.5 MDI IH SCH (10:10)
--- NOTE | 2017-09-07 11:45 | Internal Med Progress Note ---
Date of Encounter: 09/07/17 Time of Encounter: 11:43 - Assessment and plan (1) Acute hypercapnic respiratory failure Current Visit: Yes Status: Resolved Assessment and plan: Transferred from ICU. On presentation she was in acute hypoxemic respiratory distress (2) Pneumonia Current Visit: Yes Status: Acute Assessment and plan: On Augmentin, cultures negative, afebrile WBC have normalized now. Qualifiers: Pneumonia type: due to unspecified organism Laterality: unspecified laterality Lung location: unspecified part of lung Qualified Code(s): J18.9 - Pneumonia, unspecified organism (3) Myxedema coma Current Visit: Yes Status: Acute Assessment and plan: On presentation TSH 199 as patient was not taking her Synthroid. Synthroid 150 g started and repeat TSH level has come down to 16. Probably need a repeat test in next couple of weeks and if TSH is status above 5 than need further upgrade of dose. Check TSH (4) COPD exacerbation Current Visit: Yes Status: Acute Assessment and plan: On IV steroids and Mucinex and Xopenex. She cannot tolerate duo nebulizers but seems to tolerate Xopenex okay. Slow recovery. I will try to add Atrovent nebulizer to see if she tolerates that also. Pleuritic chest pain is not letting her take deep inspiration. Increased secretions and able to spit out now. On 2 L oxygen. She does not take home oxygen (5) Nicotine abuse Current Visit: Yes Status: Acute (6) Elevated troponin Current Visit: Yes Status: Acute Assessment and plan: Her troponin was also elevated on admission. However echocardiogram showed EF about 60% with normal LV systolic function and no wall motion abnormality or valvular abnormality and diastolic dysfunction. I suspect elevation of troponin could be related to severe hypo-thyroidism. (7) Diabetes mellitus Current Visit: Yes Status: Chronic Assessment and plan: Continue sliding scale coverage Accu-Chek before meals and at bedtime Qualifiers: Diabetes mellitus type: type 2 Diabetes mellitus complication status: with hyperglycemia Diabetes mellitus terminal operations supervisor insulin use: unspecified terminal operations supervisor insulin use status Qualified Code(s): E11.65 - Type 2 diabetes mellitus with hyperglycemia (8) Chest pain Current Visit: Yes Status: Acute Qualifiers: Chest pain type: chest pain on breathing Qualified Code(s): R07.1 - Chest pain on breathing; R07.81 - Pleurodynia - Subjective Interval history: Patient is transferred from intensive care unit. She was admitted with acute respiratory failure, myxedema, acute exacerbation of COPD and pneumonia. She has diabetes. Patient complains about left-sided pleuritic chest pain which she has since admission. I will add some ibuprofen when necessary for that. It is a localized pleuritic pain classical for pleurisy. I will continue her antibiotics but I noted that she is not on his steroids and her lungs sounds are quite diminished therefore micky Medrol will be added. Patient refused to take nebulizer as they make her sick therefore we will continue with MDIs which she tolerates better. She is a strongly recommended to quit his smoking and offered the nicotine patch. She came in with myxedema as she stopped taking her medication and in ICU Synthroid 150 g have been started. I will recheck TSH as it is expected to come down from her initial level of 199. She is needing 2 L of oxygen right now. CBC CMP repeated. Order echo if not done yet. 09/05 ICU transfer admitted for acute respiratory failure and diagnosed with COPD exacerbation and pneumonia. Yesterday IV steroid was added. Patient is on inhalers she cannot tolerate nebulizer. Blood sugars are up and insulin readjusted. Blood pressure was noted elevated therefore Norvasc has been increased to 10 mg daily. On admission patient had TSH 199. Her Synthroid was restarted. Heart TSH is 16. Continue current dose and repeat TSH in couple of weeks. Her troponin was also elevated on admission. However echocardiogram showed EF about 60% with normal LV systolic function and no wall motion abnormality or valvular abnormality and diastolic dysfunction. I suspect elevation of troponin could be related to severe hypo-thyroidism. Her pleurisy improved with ibuprofen but I noted she still cannot take full breath and on incentive spirometry and she can barely do 900 mL. I will add [place] along with ibuprofen for pleurisy. Patient states that now she has some sputum coming which is a good sign. I will add some Mucinex. She does not feel very good with albuterol nebs and feel worse and that the reason she is reluctant to use albuterol nebs. I recommended if he can try Xopenex as she does not seem to have allergy of anaphylaxis to albuterol and see if it helps. Patient agrees. 09/06 is still dyspneic on incentive spirometry does only 800 mL. Chest pain has improved but is still occurs on deep inspiration. 09/07 dyspnea on exertion positive. Incentive spirometry is still under thousand. On 2 L oxygen while does not take home O2. However able to spit out sputum now. Not ready for a steroid taper. Increase Mucinex. Encouraged to use incentive spirometry every hour. Respiratory and nursing staff are not encouraging her to use incentive spirometry more. Would like her to ambulate more to see if we can discharge her. Check TSH - Constitutional Vitals: Temp Pulse Resp BP Pulse Ox 98.4 F 65 19 102/59 95 09/07/17 07:38 09/07/17 07:38 09/07/17 07:38 09/07/17 07:38 09/07/17 07:38 General appearance: Present: A&O X 3, morbidly obese, answers questions appropriately - Head Head exam: Present: atraumatic, normocephalic - Eye Eye exam: Present: PERRL, conjuntiva pink, sclera anicteric Pupils: Present: PERRL - Neck Neck exam general surgery: Present: supple, trachea midline. Absent: lymphadenopathy - Respiratory Respiratory exam: Present: decreased breath sounds. Absent: accessory muscle use, rales, rhonchi, wheezes - Cardiovascular Cardiovascular exam: Present: RRR, +S1, +S2. Absent: diastolic murmur, gallop, rubs, systolic murmur - GI/Abdominal GI/Abdominal exam: Present: normal bowel sounds, soft, no peritoneal signs. Absent: distended, tenderness - Extremities Exam Extremities exam: Present: warm, radial pulses palpable and symmetrical. Absent : calf tenderness, cyanotic, pedal edema - Neurological Exam Neurological exam: Present: CN II-XII intact, oriented X3, no focal deficits. Absent: pronater drift, facial droop, speech deficit - Skin Skin exam: Present: dry, intact Internal Medicine: Result - Labs CBC & Chem 7: 09/04/17 05:12 09/04/17 05:12 - ABG Interpretation ABG results: ABG ABG pH 7.40 pH Units (7.32-7.45) 09/02/17 05:29 ABG pCO2 42 mmHg (35-45) 09/02/17 05:29 ABG pO2 96 mmHg (85-104) 09/02/17 05:29 ABG O2 Saturation 97 % (95-98) 09/02/17 05:29 PT/INR, D-dimer PT 11.4 Seconds (9.4-12.1) 09/01/17 13:47 Consult Discharge Plan - Plan Referrals: NONE,PCP [Primary Care Provider] -
[2017-09-07] MEDS: Insulin DETEMIR 100 UNIT/ML X5UNITS SQ SCH (21:29)
[2017-09-08] MEDS: hydrALAZINE 25 MG TABLET PO SCH ×4 (02:19→23:27)
[2017-09-08] MEDS: methylPREDNISolone 125 MG/2 ML VIAL IVP SCH ×2 (02:23→07:45)
[2017-09-08] MEDS: Levalbuterol Neb 1.25 MG/3 ML IH SCH ×4 (04:46→22:36)
[2017-09-08] MEDS: *HR* Enoxaparin 40 MG/0.4 ML SYRINGE SQ SCH (06:02)
[2017-09-08] MEDS: Famotidine 20 MG TABLET PO SCH ×2 (07:44→21:46)
[2017-09-08] MEDS: Aspirin Enteric Coated 81 MG Tablet PO SCH (07:44)
[2017-09-08] MEDS: Lisinopril 20 MG TABLET PO SCH (07:45)
[2017-09-08] MEDS: Isosorbide MONOnitrate (24 HR) 60 MG TAB.ER.24H PO SCH (07:45)
[2017-09-08] MEDS: clonazePAM 0.5 MG TABLET PO PRN (07:45)
[2017-09-08] MEDS: amLODIPine 5 MG TABLET PO SCH (07:45)
[2017-09-08] MEDS: Insulin LISPRO 300 UNITS/3 ML VIAL SQ SCH ×5 (08:22→21:46)
[2017-09-08] MEDS ORDERED: Insulin LISPRO 300 UNITS/3 ML VIAL SQ SCH (11:30)
[2017-09-08 12:39] LABS: BUN/Creatinine Ratio 26 (6-26); Blood Urea Nitrogen 23 mg/dL (7-20); Calcium 9.3 mg/dL (8.6-10.8); Carbon Dioxide 26 mEq/L (19-29); Chloride 99 mEq/L (98-109); Glucose 347 mg/dL (70-99); Osmolality,Calculated 299 (280-300); Potassium 4.2 mEq/L (3.5-4.5); Sodium 136 mEq/L (136-145); eGFR For African Americans > 60 (> 60); eGFR For Non-African Americans > 60 (> 60)
--- NOTE | 2017-09-08 15:16 | Internal Med Progress Note ---
Date of Encounter: 09/08/17 Time of Encounter: 15:14 - Assessment and plan (1) Acute hypercapnic respiratory failure Current Visit: Yes Status: Resolved Assessment and plan: Transferred from ICU. On presentation she was in acute hypoxemic respiratory distress. No improved. She is a smoker constant provided nicotine patch upon discharge. (2) Pneumonia Current Visit: Yes Status: Acute Assessment and plan: On Augmentin, cultures negative, afebrile WBC have normalized now. Qualifiers: Pneumonia type: due to unspecified organism Laterality: unspecified laterality Lung location: unspecified part of lung Qualified Code(s): J18.9 - Pneumonia, unspecified organism (3) Myxedema coma Current Visit: Yes Status: Acute Assessment and plan: On presentation TSH 199 as patient was not taking her Synthroid. Synthroid 150 g started and repeat TSH level has come down to 16. Probably need a repeat test in next couple of weeks and if TSH is status above 5 than need further upgrade of dose. Repeat TSH 15 I will increase her Synthroid 175 g and recommend to check TSH in next 2 weeks (4) COPD exacerbation Current Visit: Yes Status: Acute Assessment and plan: On IV steroids and Mucinex and Xopenex. She cannot tolerate duo nebulizers but seems to tolerate Xopenex okay. Slow recovery. I will try to add Atrovent nebulizer to see if she tolerates that also. Pleuritic chest pain is improving. Off nasal oxygen. Start tapering steroids. (5) Nicotine abuse Current Visit: Yes Status: Acute (6) Elevated troponin Current Visit: Yes Status: Acute Assessment and plan: Her troponin was also elevated on admission. However echocardiogram showed EF about 60% with normal LV systolic function and no wall motion abnormality or valvular abnormality and diastolic dysfunction. I suspect elevation of troponin could be related to severe hypo-thyroidism. (7) Diabetes mellitus Current Visit: Yes Status: Chronic Assessment and plan: Continue sliding scale coverage Accu-Chek before meals and at bedtime. Will convert her Levemir and NovoLog to Novolin 70/30 and see if he can control her blood sugars0. 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 She was admitted with acute respiratory failure, myxedema, acute exacerbation of COPD and pneumonia. She has diabetes. Patient complains about left-sided pleuritic chest pain which she has since admission. I will add some ibuprofen when necessary for that. It is a localized pleuritic pain classical for pleurisy. I will continue her antibiotics but I noted that she is not on his steroids and her lungs sounds are quite diminished therefore micky Medrol will be added. Patient refused to take nebulizer as they make her sick therefore we will continue with MDIs which she tolerates better. She is a strongly recommended to quit his smoking and offered the nicotine patch. She came in with myxedema as she stopped taking her medication and in ICU Synthroid 150 g have been started. I will recheck TSH as it is expected to come down from her initial level of 199. She is needing 2 L of oxygen right now. CBC CMP repeated. Order echo if not done yet. 09/05 ICU transfer admitted for acute respiratory failure and diagnosed with COPD exacerbation and pneumonia. Yesterday IV steroid was added. Patient is on inhalers she cannot tolerate nebulizer. Blood sugars are up and insulin readjusted. Blood pressure was noted elevated therefore Norvasc has been increased to 10 mg daily. On admission patient had TSH 199. Her Synthroid was restarted. Heart TSH is 16. Continue current dose and repeat TSH in couple of weeks. Her troponin was also elevated on admission. However echocardiogram showed EF about 60% with normal LV systolic function and no wall motion abnormality or valvular abnormality and diastolic dysfunction. I suspect elevation of troponin could be related to severe hypo-thyroidism. Her pleurisy improved with ibuprofen but I noted she still cannot take full breath and on incentive spirometry and she can barely do 900 mL. I will add [place] along with ibuprofen for pleurisy. Patient states that now she has some sputum coming which is a good sign. I will add some Mucinex. She does not feel very good with albuterol nebs and feel worse and that the reason she is reluctant to use albuterol nebs. I recommended if he can try Xopenex as she does not seem to have allergy of anaphylaxis to albuterol and see if it helps. Patient agrees. 09/06 is still dyspneic on incentive spirometry does only 800 mL. Chest pain has improved but is still occurs on deep inspiration. 09/07 dyspnea on exertion positive. Incentive spirometry is still under thousand. On 2 L oxygen while does not take home O2. However able to spit out sputum now. Not ready for a steroid taper. Increase Mucinex. Encouraged to use incentive spirometry every hour. Respiratory and nursing staff are not encouraging her to use incentive spirometry more. Would like her to ambulate more to see if we can discharge her. Check TSH 09/08 doing well no complaints.. Tolerating room air. Last night transferred to [facility] for the suspicion of bradycardia and heart rate in 20s however staff nurses and to not totally that patient never had any bradycardia. I I was also told that patient does not have any insurance and will not be able to afford Levemir insulin therefore we need to change insulin and also on her blood pressure medicine. Problem is that she has not been using any medication for months and we do not exactly what medicines does work for her. We will try to make switch around and see if her blood pressure which is quite high can be stabilize with the medication which are available on [facility] pharmacy as per patient request. - Constitutional Vitals: Temp Pulse Resp BP Pulse Ox 98.5 F 67 18 162/75 93 09/08/17 11:43 09/08/17 12:05 09/08/17 11:43 09/08/17 11:43 09/08/17 11:43 General appearance: Present: A&O X 3, morbidly obese, answers questions appropriately - Head Head exam: Present: atraumatic, normocephalic - Eye Eye exam: Present: PERRL, conjuntiva pink, sclera anicteric Pupils: Present: PERRL - Neck Neck exam general surgery: Present: supple, trachea midline. Absent: lymphadenopathy - Respiratory Respiratory exam: Present: decreased breath sounds. Absent: accessory muscle use, rales, rhonchi, wheezes - Cardiovascular Cardiovascular exam: Present: RRR, +S1, +S2. Absent: diastolic murmur, gallop, rubs, systolic murmur - GI/Abdominal GI/Abdominal exam: Present: normal bowel sounds, soft, no peritoneal signs. Absent: distended, tenderness - Extremities Exam Extremities exam: Present: warm, radial pulses palpable and symmetrical. Absent : calf tenderness, cyanotic, pedal edema - Neurological Exam Neurological exam: Present: CN II-XII intact, oriented X3, no focal deficits. Absent: pronater drift, facial droop, speech deficit - Skin Skin exam: Present: dry, intact Internal Medicine: Result - Labs CBC & Chem 7: 09/04/17 05:12 09/08/17 12:09 Labs: BMP 09/08/17 12:09 Sodium 136 Potassium 4.2 Chloride 99 Carbon Dioxide 26 BUN 23 H Creatinine 0.87 Glucose 347 H Calcium 9.3 - ABG Interpretation ABG results: ABG ABG pH 7.40 pH Units (7.32-7.45) 09/02/17 05:29 ABG pCO2 42 mmHg (35-45) 09/02/17 05:29 ABG pO2 96 mmHg (85-104) 09/02/17 05:29 ABG O2 Saturation 97 % (95-98) 09/02/17 05:29 PT/INR, D-dimer PT 11.4 Seconds (9.4-12.1) 09/01/17 13:47 Consult Discharge Plan - Plan Referrals: NONE,PCP [Primary Care Provider] -
[2017-09-08] MEDS: MethylPREDNISolone 40 MG/ML VIAL IVP SCH ×2 (15:56→23:27)
[2017-09-08] MEDS: *HR* Metformin 500 MG TABLET PO SCH (15:56)
[2017-09-08] MEDS ORDERED: hydrALAZINE 25 MG TABLET PO SCH (16:00)
[2017-09-08] MEDS: Insulin NPH/REG 70/30 100 UNIT/ML (x5UNIT) SQ SCH (16:25)
[2017-09-08] MEDS ORDERED: Insulin DETEMIR 100 UNIT/ML X5UNITS SQ SCH (21:00)
[2017-09-09] MEDS: Levalbuterol Neb 1.25 MG/3 ML IH SCH ×4 (03:48→22:00)
[2017-09-09] MEDS: clonazePAM 0.5 MG TABLET PO PRN ×2 (04:26→23:39)
[2017-09-09] MEDS: *HR* Enoxaparin 40 MG/0.4 ML SYRINGE SQ SCH (06:32)
[2017-09-09] MEDS: Insulin LISPRO 300 UNITS/3 ML VIAL SQ SCH ×4 (08:27→21:04)
[2017-09-09] MEDS: *HR* Metformin 500 MG TABLET PO SCH ×2 (08:28→16:06)
[2017-09-09] MEDS: hydrALAZINE 25 MG TABLET PO SCH ×3 (08:29→23:33)
[2017-09-09] MEDS: Aspirin Enteric Coated 81 MG Tablet PO SCH (08:30)
[2017-09-09] MEDS: MethylPREDNISolone 40 MG/ML VIAL IVP SCH ×2 (08:30→16:06)
[2017-09-09] MEDS: Famotidine 20 MG TABLET PO SCH ×2 (08:33→21:05)
[2017-09-09] MEDS: Lisinopril 20 MG TABLET PO SCH (08:34)
[2017-09-09] MEDS: Insulin NPH/REG 70/30 100 UNIT/ML (x5UNIT) SQ SCH ×2 (09:11→16:06)
[2017-09-09] MEDS: *HR* Labetalol 20 MG/4 ML SYRINGE IVP PRN (17:30)
--- NOTE | 2017-09-09 18:01 | Internal Med Progress Note ---
Date of Encounter: 09/09/17 Time of Encounter: 17:58 - Assessment and plan (1) Acute hypercapnic respiratory failure Current Visit: Yes Status: Resolved Assessment and plan: Transferred from ICU. On presentation she was in acute hypoxemic respiratory distress. No improved. She is a smoker constant provided nicotine patch upon discharge. (2) Pneumonia Current Visit: Yes Status: Acute Assessment and plan: On Augmentin, cultures negative, afebrile WBC have normalized now. Qualifiers: Pneumonia type: due to unspecified organism Laterality: unspecified laterality Lung location: unspecified part of lung Qualified Code(s): J18.9 - Pneumonia, unspecified organism (3) Myxedema coma Current Visit: Yes Status: Acute Assessment and plan: On presentation TSH 199 as patient was not taking her Synthroid. Synthroid 150 g started and repeat TSH level has come down to 16. Probably need a repeat test in next couple of weeks and if TSH is status above 5 than need further upgrade of dose. Repeat TSH 15 I will increase her Synthroid 175 g and recommend to check TSH in next 2 weeks (4) COPD exacerbation Current Visit: Yes Status: Acute Assessment and plan: On IV steroids and Mucinex and Xopenex. She cannot tolerate duo nebulizers but seems to tolerate Xopenex okay. Slow recovery. I will try to add Atrovent nebulizer to see if she tolerates that also. Pleuritic chest pain is improving. Off nasal oxygen. Start tapering steroids. Start prednisone 40 twice a day and DC IV Solu-Medrol (5) Nicotine abuse Current Visit: Yes Status: Acute (6) Elevated troponin Current Visit: Yes Status: Acute Assessment and plan: Her troponin was also elevated on admission. However echocardiogram showed EF about 60% with normal LV systolic function and no wall motion abnormality or valvular abnormality and diastolic dysfunction. I suspect elevation of troponin could be related to severe hypo-thyroidism. (7) Diabetes mellitus Current Visit: Yes Status: Chronic Assessment and plan: Continue sliding scale coverage Accu-Chek before meals and at bedtime. Will convert her Levemir and NovoLog to Novolin 70/30 and see if he can control her blood sugars0. Qualifiers: Diabetes mellitus type: type 2 Diabetes mellitus complication status: with hyperglycemia Diabetes mellitus senior care insulin use: unspecified solution design and analysis manager insulin use status Qualified Code(s): E11.65 - Type 2 diabetes mellitus with hyperglycemia (8) Chest pain Current Visit: Yes Status: Acute Assessment and plan: Pleuritic in nature responded well to ibuprofen and [place] has been added yesterday as she is still not taking full deep breath Qualifiers: Chest pain type: chest pain on breathing Qualified Code(s): R07.1 - Chest pain on breathing; R07.81 - Pleurodynia - Subjective Interval history: Patient is transferred from intensive care unit. She was admitted with acute respiratory failure, myxedema, acute exacerbation of COPD and pneumonia. She has diabetes. Patient complains about left-sided pleuritic chest pain which she has since admission. I will add some ibuprofen when necessary for that. It is a localized pleuritic pain classical for pleurisy. I will continue her antibiotics but I noted that she is not on his steroids and her lungs sounds are quite diminished therefore micky Medrol will be added. Patient refused to take nebulizer as they make her sick therefore we will continue with MDIs which she tolerates better. She is a strongly recommended to quit his smoking and offered the nicotine patch. She came in with myxedema as she stopped taking her medication and in ICU Synthroid 150 g have been started. I will recheck TSH as it is expected to come down from her initial level of 199. She is needing 2 L of oxygen right now. CBC CMP repeated. Order echo if not done yet. 09/05 ICU transfer admitted for acute respiratory failure and diagnosed with COPD exacerbation and pneumonia. Yesterday IV steroid was added. Patient is on inhalers she cannot tolerate nebulizer. Blood sugars are up and insulin readjusted. Blood pressure was noted elevated therefore Norvasc has been increased to 10 mg daily. On admission patient had TSH 199. Her Synthroid was restarted. Heart TSH is 16. Continue current dose and repeat TSH in couple of weeks. Her troponin was also elevated on admission. However echocardiogram showed EF about 60% with normal LV systolic function and no wall motion abnormality or valvular abnormality and diastolic dysfunction. I suspect elevation of troponin could be related to severe hypo-thyroidism. Her pleurisy improved with ibuprofen but I noted she still cannot take full breath and on incentive spirometry and she can barely do 900 mL. I will add [place] along with ibuprofen for pleurisy. Patient states that now she has some sputum coming which is a good sign. I will add some Mucinex. She does not feel very good with albuterol nebs and feel worse and that the reason she is reluctant to use albuterol nebs. I recommended if he can try Xopenex as she does not seem to have allergy of anaphylaxis to albuterol and see if it helps. Patient agrees. 09/06 is still dyspneic on incentive spirometry does only 800 mL. Chest pain has improved but is still occurs on deep inspiration. 09/07 dyspnea on exertion positive. Incentive spirometry is still under thousand. On 2 L oxygen while does not take home O2. However able to spit out sputum now. Not ready for a steroid taper. Increase Mucinex. Encouraged to use incentive spirometry every hour. Respiratory and nursing staff are not encouraging her to use incentive spirometry more. Would like her to ambulate more to see if we can discharge her. Check TSH 09/08 doing well no complaints.. Tolerating room air. Last night transferred to 2 N. for the suspicion of bradycardia and heart rate in 20s however staff nurses and to not totally that patient never had any bradycardia. I I was also told that patient does not have any insurance and will not be able to afford Levemir insulin therefore we need to change insulin and also on her blood pressure medicine. Problem is that she has not been using any medication for months and we do not exactly what medicines does work for her. We will try to make switch around and see if her blood pressure which is quite high can be stabilize with the medication which are available on [facility] pharmacy as per patient request. 09/09 clinically improved. No complaints. She is without oxygen now. I will switch her to by mouth prednisone. We had to change her Levemir as she cannot afford it. Yesterday I started her on Novolin 7030 and she seems to be tolerating it well and I will increase her dose slightly. Her blood pressure is a big issue as it is as high as 200. I have ordered when necessary labetalol while she is on by mouth hydralazine 150 3 times a day. Heart heart rate is running high therefore I will use low-dose beta blockers also beside adding nitrates. She is already on HELEN inhibitor. I have ordered renal arterial ultrasound. If her blood pressure improves and ultrasound seems to be doing okay she can be discharged. We need to give her those medication which are covered by [facility] as previously she stopped aching her medication after losing her insurance. - Constitutional Vitals: Temp Pulse Resp BP Pulse Ox 97.6 F 66 14 177/95 96 09/09/17 15:50 09/09/17 15:50 09/09/17 15:50 09/09/17 17:29 09/09/17 15:50 General appearance: Present: A&O X 3, morbidly obese, answers questions appropriately - Head Head exam: Present: atraumatic, normocephalic - Eye Eye exam: Present: PERRL, conjuntiva pink, sclera anicteric Pupils: Present: PERRL - Neck Neck exam general surgery: Present: supple, trachea midline. Absent: lymphadenopathy - Respiratory Respiratory exam: Present: decreased breath sounds, wheezes. Absent: accessory muscle use, rales, rhonchi - Cardiovascular Cardiovascular exam: Present: RRR, +S1, +S2. Absent: diastolic murmur, gallop, rubs, systolic murmur - GI/Abdominal GI/Abdominal exam: Present: normal bowel sounds, soft, no peritoneal signs. Absent: distended, tenderness - Extremities Exam Extremities exam: Present: warm, radial pulses palpable and symmetrical. Absent : calf tenderness, cyanotic, pedal edema - Neurological Exam Neurological exam: Present: CN II-XII intact, oriented X3, no focal deficits. Absent: pronater drift, facial droop, speech deficit - Skin Skin exam: Present: dry, intact Internal Medicine: Result - Labs CBC & Chem 7: 09/04/17 05:12 09/08/17 12:09 - ABG Interpretation ABG results: ABG ABG pH 7.40 pH Units (7.32-7.45) 09/02/17 05:29 ABG pCO2 42 mmHg (35-45) 09/02/17 05:29 ABG pO2 96 mmHg (85-104) 09/02/17 05:29 ABG O2 Saturation 97 % (95-98) 09/02/17 05:29 PT/INR, D-dimer PT 11.4 Seconds (9.4-12.1) 09/01/17 13:47 Consult Discharge Plan - Plan Referrals: SAM FOWLER [Other] - 09/18/17 3:00 pm (THIS IS [facility]) NONE,PCP [Primary Care Provider] -
--- NOTE | 2017-09-09 20:02 | Electrocardiograph Report ---
[place] [id number] Test Date: 2017-09-08 Pat Name: Katherine Lo Department: 115 Room: 2N10 Gender: F Assistant Front End Manager: : [id number] Requested By: Anoop Hartman Order Number: [id number] Reading MD: Ramón Biggs MD Measurements Intervals [place] Rate: 56 P: 51 WY: 145 QRS: 56 QRSD: 103 T: 110 QT: 451 QTc: 443 Interpretive Statements SINUS BRADYCARDIA LEFT VENTRICULAR HYPERTROPHY AND ST-T CHANGE Electronically Signed On 09-09-2017 20:00:39 EST by Ramón Biggs MD
[2017-09-10] MEDS: Levalbuterol Neb 1.25 MG/3 ML IH SCH ×4 (03:46→21:52)
[2017-09-10] MEDS: *HR* Enoxaparin 40 MG/0.4 ML SYRINGE SQ SCH (05:34)
[2017-09-10] MEDS: *HR* Labetalol 20 MG/4 ML SYRINGE IVP PRN (05:36)
[2017-09-10] MEDS: hydrALAZINE 25 MG TABLET PO SCH ×2 (08:40→15:19)
[2017-09-10] MEDS: Famotidine 20 MG TABLET PO SCH ×2 (08:40→21:08)
[2017-09-10] MEDS: *HR* Metformin 500 MG TABLET PO SCH ×2 (08:40→16:35)
[2017-09-10] MEDS: Aspirin Enteric Coated 81 MG Tablet PO SCH (08:40)
[2017-09-10] MEDS: Lisinopril 20 MG TABLET PO SCH (08:41)
[2017-09-10] MEDS: Insulin LISPRO 300 UNITS/3 ML VIAL SQ SCH ×4 (08:42→21:06)
[2017-09-10] MEDS: predniSONE 20 MG TABLET PO SCH ×2 (08:42→16:35)
[2017-09-10] MEDS: Insulin NPH/REG 70/30 100 UNIT/ML (x5UNIT) SQ SCH (08:42)
--- NOTE | 2017-09-10 13:50 | Internal Med Progress Note ---
Date of Encounter: 09/10/17 Time of Encounter: 13:47 - Assessment and plan (1) COPD exacerbation Current Visit: Yes Status: Acute Assessment and plan: Improving. Continue oral steroids, when necessary bronchodilators. Not requiring supplemental oxygen at this time. When necessary antitussives. (2) Elevated troponin Current Visit: Yes Status: Acute Assessment and plan: Likely related to acute COPD and myxedema. Peak troponin 0.4, trending down. (3) Tobacco abuse Current Visit: Yes Status: Chronic Assessment and plan: Smoking cessation advised, patient is motivated to quit smoking by herself. Not requiring nicotine transdermal patch at this time. (4) Myxedema coma Current Visit: Yes Status: Acute Assessment and plan: Presented with myxedema coma with TSH greater than 200. Has been treated with IV Synthroid, changed to oral levothyroxine, currently at 175 g daily. TSH improving at 15.6 on September 07. To monitor closely as outpatient and adjust dose of levothyroxine. (5) Diabetes mellitus Current Visit: Yes Status: Chronic Assessment and plan: Blood sugars noted to be uncontrolled, likely due to medical noncompliance due to insurance issues. Continue Accu-Chek blood glucose monitoring with long- acting insulin. Patient is currently on insulin 70/30, will increase morning dose. Diabetic diet. Qualifiers: Diabetes mellitus type: type 2 Diabetes mellitus complication status: with hyperglycemia Diabetes mellitus intermediate project manager insulin use: without shelter use Qualified Code(s): E11.65 - Type 2 diabetes mellitus with hyperglycemia (6) Essential hypertension Current Visit: Yes Status: Chronic Assessment and plan: Patient is noted to have uncontrolled blood pressure, likely due to medical noncompliance due to insurance issues. Has been started on medications that are available on [employer] $4 prescription drug list. Continue beta fernando, hydralazine, Imdur. Low-sodium diet. (7) Acute hypercapnic respiratory failure Current Visit: Yes Status: Resolved - Subjective Interval history: Feels better, improving dyspnea and pleuritic chest pain; reports feeling tired with Metoprolol; no nausea, vomiting, abdominal pain; - Constitutional Vitals: Temp Pulse Resp BP Pulse Ox 98.4 F 62 17 147/74 92 09/10/17 11:08 09/10/17 11:16 09/10/17 11:08 09/10/17 11:08 09/10/17 11:08 General appearance: Present: A&O X 3, answers questions appropriately - Respiratory Respiratory exam: Present: decreased breath sounds (B/L decreased air entry), CTAB. Absent: accessory muscle use, rales, rhonchi, wheezes - Cardiovascular Cardiovascular exam: Present: RRR, +S1, +S2. Absent: diastolic murmur, gallop, rubs, systolic murmur - GI/Abdominal GI/Abdominal exam: Present: normal bowel sounds, soft, no peritoneal signs. Absent: distended, tenderness - Extremities Exam Extremities exam: Present: full ROM, warm, radial pulses palpable and symmetrical. Absent: calf tenderness, cyanotic, pedal edema - Neurological Exam Neurological exam: Present: CN II-XII intact, oriented X3, no focal deficits. Absent: pronater drift, facial droop, speech deficit Internal Medicine: Result - Labs CBC & Chem 7: 09/04/17 05:12 09/08/17 12:09 - ABG Interpretation ABG results: ABG ABG pH 7.40 pH Units (7.32-7.45) 09/02/17 05:29 ABG pCO2 42 mmHg (35-45) 09/02/17 05:29 ABG pO2 96 mmHg (85-104) 09/02/17 05:29 ABG O2 Saturation 97 % (95-98) 09/02/17 05:29 PT/INR, D-dimer PT 11.4 Seconds (9.4-12.1) 09/01/17 13:47 Consult Discharge Plan - Plan Referrals: SAM FOWLER [Other] - 09/18/17 3:00 pm (THIS IS [facility]) NONE,PCP [Primary Care Provider] - Prescriptions: hydrALAZINE [HydrALAZINE] 150 mg PO Q8HR 30 Days tablet Albuterol Sulfate [Albuterol Inhaler] 1 puff IH Q6H PRN 30 Days inhaler PRN Reason: Shortness Of Breath/Wheezing Carvedilol [Coreg] 25 mg PO BID #60 tablet Glimepiride [Amaryl] 1 mg PO DAILY #30 tablet Insulin NPH/REG 70/30 (HUMAN) [Humulin 70/30 Vial] 35 unit SQ HS 30 Days Insulin NPH/REG 70/30 (HUMAN) [Humulin 70/30 Vial] 45 unit SQ DAILY 30 Days Isosorbide MONOnitrate (24 HR) [Imdur] 60 mg PO DAILY #30 tab.er.24h Levothyroxine [Synthroid] 175 mcg PO DAILY@0630 #30 tablet Lisinopril [Zestril] 40 mg PO DAILY #30 tablet Metformin HCl [Glucophage] 1,000 mg PO BID #60 tablet predniSONE [PredniSONE] 40 mg PO BIDWM 5 Days tablet Syrge-Ndl,Ins 0.3 ml Half Bryant [Insulin Syringe] 1 each MC BID #100 disp.syrin
[2017-09-10] MEDS ORDERED: Insulin NPH/REG 70/30 100 UNIT/ML (x5UNIT) SQ SCH (21:00)
[2017-09-11] MEDS: hydrALAZINE 25 MG TABLET PO SCH ×2 (00:48→07:49)
[2017-09-11] MEDS: Levalbuterol Neb 1.25 MG/3 ML IH SCH ×3 (03:28→15:40)
[2017-09-11] MEDS: *HR* Enoxaparin 40 MG/0.4 ML SYRINGE SQ SCH (05:07)
[2017-09-11] MEDS: Insulin LISPRO 300 UNITS/3 ML VIAL SQ SCH ×2 (07:48→12:02)
[2017-09-11] MEDS: Famotidine 20 MG TABLET PO SCH (07:49)
[2017-09-11] MEDS: predniSONE 20 MG TABLET PO SCH (07:49)
[2017-09-11] MEDS: Lisinopril 20 MG TABLET PO SCH (07:49)
[2017-09-11] MEDS: Aspirin Enteric Coated 81 MG Tablet PO SCH (07:49)
[2017-09-11] MEDS: *HR* Metformin 500 MG TABLET PO SCH (07:50)
[2017-09-11] MEDS ORDERED: Insulin NPH/REG 70/30 100 UNIT/ML (x5UNIT) SQ SCH (09:00)
[2017-09-11 10:55] VITALS: BP 137/73
[2017-09-11] MEDS: clonazePAM 0.5 MG TABLET PO PRN (12:05)
--- NOTE | 2017-09-11 13:31 | Discharge Summary ---
Date of Encounter: 09/11/17 Time of Encounter: 13:19 - Discharge Diagnosis (1) COPD exacerbation Priority: Primary Status: Acute (2) Elevated troponin Priority: Primary Status: Acute (3) Tobacco abuse Priority: Secondary Status: Chronic (4) Myxedema coma Priority: Primary Status: Acute (5) Diabetes mellitus Priority: Secondary Status: Chronic Qualifiers: Diabetes mellitus type: type 2 Diabetes mellitus complication status: with hyperglycemia Diabetes mellitus buttermaker insulin use: without buttermaker use Qualified Code(s): E11.65 - Type 2 diabetes mellitus with hyperglycemia (6) Essential hypertension Priority: Secondary Status: Chronic (7) Acute hypercapnic respiratory failure Priority: Primary Status: Resolved - Discharge Medications Prescriptions: hydrALAZINE [HydrALAZINE] 150 mg PO Q8HR 30 Days tablet Albuterol Sulfate [Albuterol Inhaler] 1 puff IH Q6H PRN 30 Days inhaler PRN Reason: Shortness Of Breath/Wheezing Carvedilol [Coreg] 25 mg PO BID #60 tablet Glimepiride [Amaryl] 1 mg PO DAILY #30 tablet Insulin NPH/REG 70/30 (HUMAN) [Humulin 70/30 Vial] 35 unit SQ HS 30 Days Insulin NPH/REG 70/30 (HUMAN) [Humulin 70/30 Vial] 45 unit SQ DAILY 30 Days Isosorbide MONOnitrate (24 HR) [Imdur] 60 mg PO DAILY #30 tab.er.24h Levothyroxine [Synthroid] 175 mcg PO DAILY@0630 #30 tablet Lisinopril [Zestril] 40 mg PO DAILY #30 tablet Metformin HCl [Glucophage] 1,000 mg PO BID #60 tablet predniSONE [PredniSONE] 40 mg PO BIDWM 5 Days tablet Syrge-Ndl,Ins 0.3 ml Half Bryant [Insulin Syringe] 1 each MC BID #100 disp.syrin Home Medications: clonazePAM [Klonopin] 0.5 mg PO TID PRN #6 tablet 02/05/17 [Rx] Albuterol Sulfate [Albuterol Inhaler] 2 puff IH QID PRN 09/02/17 [History] Aspirin [Lo-Dose Aspirin EC] 81 mg PO DAILY 09/02/17 [History] Budesonide/Formoterol 160/4.5 [Symbicort 160/4.5] 2 puff IH TID 09/02/17 [ History] Ferrous Sulfate [Iron] 325 mg PO DAILY 09/02/17 [History] Ipratropium [ATROVENT Inhaler] 2 puff IH QID 09/02/17 [History] Montelukast [Singulair] 10 mg PO DAILY 09/02/17 [History] Sertraline [Zoloft] 100 mg PO DAILY 09/02/17 [History] SitaGLIPtin [Januvia] 100 mg PO DAILY 09/02/17 [History] Albuterol Sulfate [Albuterol Inhaler] 1 puff IH Q6H PRN 30 Days inhaler [Rx] Carvedilol [Coreg] 25 mg PO BID #60 tablet 09/11/17 [Rx] Glimepiride [Amaryl] 1 mg PO DAILY #30 tablet 09/11/17 [Rx] Insulin NPH/REG 70/30 (HUMAN) [Humulin 70/30 Vial] 35 unit SQ HS 30 Days [Rx] Insulin NPH/REG 70/30 (HUMAN) [Humulin 70/30 Vial] 45 unit SQ DAILY 30 Days [Rx] Isosorbide MONOnitrate (24 HR) [Imdur] 60 mg PO DAILY #30 tab.er.24h 09/11/17 [ Rx] Levothyroxine [Synthroid] 175 mcg PO DAILY@0630 #30 tablet 09/11/17 [Rx] Lisinopril [Zestril] 40 mg PO DAILY #30 tablet 09/11/17 [Rx] Metformin HCl [Glucophage] 1,000 mg PO BID #60 tablet 09/11/17 [Rx] Syrge-Ndl,Ins 0.3 ml Half Bryant [Insulin Syringe] 1 each MC BID #100 disp.syrin 09/11/17 [Rx] hydrALAZINE [HydrALAZINE] 150 mg PO Q8HR 30 Days tablet 09/11/17 [Rx] predniSONE [PredniSONE] 40 mg PO BIDWM 5 Days tablet 09/11/17 [Rx] Allergies/Adverse Reactions: 3 Allergy/AdvReac Type Severity Reaction Status Date / Time No Known Allergies Allergy Verified 07/05/17 08:03 Procedures/tests Complete & Pending: Procedures Performed prior 72 hours Category Date Time Status EV renal artery image Routine Y 09/10/17 07:30 Completed Date of admission: 09/01/17 17:19 Primary care physician: PCP NONE Consults: 09/01/17 17:25 Consult to Pulmonology [CONS] Routine Consulting Provider: Christiano Cabello [facility] Reason for Consult: ICU management Call Completed: Yes 09/01/17 18:46 Consult to Garment Steamer [CONS] Routine Reason for SW Consult: Help financially with medications and care. Discharging clinician: Viola Gonzalez Anticipated date of discharge: 09/11/17 - Patient Status Disposition: Home, Self-Care Condition: Good Functional capacity at discharge: independent ambulation Overall status at discharge: patient is progressing back to baseline - Discharge Instructions Follow Up With: SAM FOWLER [Other] - 09/18/17 3:00 pm (THIS IS [facility]) NONE,PCP [Primary Care Provider] - - Diet and Activity Activity: resume usual activities as tolerated Diet: diabetic diet, low fat, low cholesterol, low salt diet Hospital course: Ms. Lo is a 46 year old female with the above medical problems, who was admitted after being unresponsive at home after an argument, and had ROSC by the time EMS arrived. Workup in the ER showed myxedema coma with TSH>200. Marvel was apparently noncompliant with her meds for about a month and a half due to losing her job and insurance. She was started on IV Levothyroxine and steroids. She also had acute hypercapnic respiratory failure and responded to bronchodilators and NIPPV and supplemental O2. Patient gradually came back to baseline mental status and was saturating well on room air, not requiring supplemental O2. After being transferred to floor, she had a prolonged hospital stay due to uncontrolled BP and blood sugars. She was restarted on some of her home meds along with insulin and BP and sugars were gradually somewhat better controlled. SHe is being discharged with meds mostly available on $[address] [facility] and was encouraged to take them until she can get on her 's insurance in October 2017. SHe is otherwise medically stable for discharge. PO Synthroid was started and TSH gradually trended down to 15. SHe needs to f/ up with PCP for further monitoring and dose adjustment. Time spent discussing smoking cessation with patient: 3 to 10 minutes - Time Spent with Patient Total time spent providing and/or coordinating discharge services: Greater than 30 minutes (50 min) - Constitutional Vitals: Temp Pulse Resp BP Pulse Ox 98.4 F 63 18 137/73 93 09/11/17 10:51 09/11/17 10:51 09/11/17 10:51 09/11/17 10:51 09/11/17 10:51 General appearance: Present: A&O X 3, answers questions appropriately - Respiratory Respiratory exam: Present: decreased breath sounds, CTAB. Absent: accessory muscle use, rales, rhonchi, wheezes
== END 2017-09-11 16:09 | disposition home or self-care (01) | DRG 208 ==
LOC: EMEROO 13:20 → ICNU 17:19 → MERGE 17:19 → SUATTDRO 17:19 → ICNU 18:11 → 3ANU 09-03 14:57 → 2NNU 09-08 01:40
PROVIDERS: ADMIT Internal Medicine; ATTEND Internal Medicine

== ENCOUNTER 2018-10-15 01:21 | Inpatient (IN) ==
--- NOTE | 2018-10-15 01:37 | Emergency Department Note ---
Disposition Clinical Impression: Palpitations CVA (cerebral vascular accident) Qualifiers: CVA mechanism: unspecified Qualified Code(s): I63.9 - Cerebral infarction, un specified Disposition: Admitted As Inpatient Condition: Undetermined Referrals: NONE,PCP [Primary Care Provider] - Forms: ED Satisfaction Letter Time of Disposition: 04:29 General Adult HPI - General Chief complaint: ED Chest Pain Stated complaint: poss STEMI Time Seen by Provider: 10/15/18 01:33 Source: patient, EMS Mode of arrival: EMS Limitations: no limitations Nursing Notes Reviewed: Yes Vital Signs Reviewed: Yes - History of Present Illness HPI Narrative: 47-year-old female with history of asthma, emphysema arrives to the emergency department with complaint of right sided facial numbness that started roughly 2 days ago. She states it is radiating down into her right upper extremity and right lower extremity as well. Patient does have some possible mild right sided facial droop around the mouth but is hard identify secondary to patient's lack of dentition. The patient also states that earlier this evening she started experiencing a large amount of dizziness to the point where she vomited. She had associated flutter inside of her chest along the left side of her chest that subsequently resolved after vomiting. The patient denies any other complaints at this time. Pain Scale: 2 - Related Data Home Medications Medication Instructions Recorded Confirmed Albuterol Sulfate [Albuterol 2 puff IH QID PRN 09/02/17 09/18/17 Inhaler] Aspirin [Lo-Dose Aspirin EC] 81 mg PO DAILY 09/02/17 09/18/17 Budesonide/Formoterol 160/4.5 2 puff IH TID 09/02/17 09/18/17 [Symbicort 160/4.5] Ferrous Sulfate [Iron] 325 mg PO DAILY 09/02/17 09/18/17 Ipratropium [ATROVENT Inhaler] 2 puff IH QID 09/02/17 09/18/17 Montelukast [Singulair] 10 mg PO DAILY 09/02/17 09/18/17 Sertraline [Zoloft] 100 mg PO DAILY 09/02/17 09/18/17 SitaGLIPtin [Januvia] 100 mg PO DAILY 09/02/17 09/18/17 Previous Rx's Medication Instructions Recorded clonazePAM [Klonopin] 0.5 mg PO TID PRN #6 tablet 02/05/17 Albuterol Sulfate [Albuterol 1 puff IH Q6H PRN 30 Days inhaler 09/11/17 Inhaler] Carvedilol [Coreg] 25 mg PO BID #60 tablet 09/11/17 Glimepiride [Amaryl] 1 mg PO DAILY #30 tablet 09/11/17 Insulin NPH/REG 70/30 (HUMAN) 35 unit SQ HS 30 Days 09/11/17 [Humulin 70/30 Vial] Insulin NPH/REG 70/30 (HUMAN) 45 unit SQ DAILY 30 Days 09/11/17 [Humulin 70/30 Vial] Isosorbide MONOnitrate (24 HR) 60 mg PO DAILY #30 tab.er.24h 09/11/17 [Imdur] Levothyroxine [Synthroid] 175 mcg PO DAILY@0630 #30 tablet 09/11/17 Lisinopril [Zestril] 40 mg PO DAILY #30 tablet 09/11/17 Syrge-Ndl,Ins 0.3 ml Half Bryant 1 each MC BID #100 disp.syrin 09/11/17 [Veo Insulin Syringe] hydrALAZINE [HydrALAZINE] 150 mg PO Q8HR 30 Days tablet 09/11/17 predniSONE [PredniSONE] 40 mg PO BIDWM 5 Days tablet 09/11/17 Aspirin Enteric Coated [Aspirin EC] 81 mg PO DAILY tablet. 09/19/17 metFORMIN [Glucophage] 500 mg PO 0800 #60 tablet 09/19/17 Allergies Allergy/AdvReac Type Severity Reaction Status Date / Time No Known Allergies Allergy Verified 07/05/17 08:03 All systems ED: reviewed and negative except as stated. Constitutional: Denies: fever, chills, weakness Eyes: Denies: vision change ENT ED: Denies: ear pain, dental pain, congestion Cardiovascular: Reports: palpitations. Denies: chest pain, dyspnea on exertion, edema Respiratory: Denies: cough, dyspnea Gastrointestinal: Reports: nausea, vomiting. Denies: abdominal pain, diarrhea, constipation, hematemesis, melena, hematochezia Genitourinary: Denies: urgency, dysuria Musculoskeletal: Denies: back pain Integumentary: Denies: rash Neurological: Reports: headache, numbness, paresthesias. Denies: confusion, abnormal gait, vertigo Past Medical History - Past Medical History Attestation: Yes The following information was validated with the patient. 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 - Social History Smoking Status: Former smoker Smokeless Tobacco Status: No Alcohol use: Reports: none Drug use: Reports: none Physical Exam - General Limitations: no limitations General appearance: alert, in no apparent distress - Head Head exam: atraumatic, normocephalic, normal inspection - Eye Eye exam: Present: normal appearance, PERRL, EOMI - ENT ENT exam: normal exam, normal oropharynx, mucous membranes moist - Neck Neck exam: Present: normal inspection, full ROM, trachea midline - Chest Chest inspection: Present: normal inspection, symmetric chest wall rise - Respiratory Respiratory exam: Present: normal lung sounds bilaterally - Cardiovascular Cardiovascular exam: Present: regular rate, normal rhythm, normal heart sounds - Abdominal Exam Abdominal exam: Present: soft, Non-Tender. Absent: tenderness, distention, guarding, rebound, rigidity, Nicole's sign - Extremities Exam Extremities exam: Present: normal inspection, full ROM. Absent: tenderness, pedal edema - Neurological Exam Neurological exam: Present: alert, oriented X3 - Expanded Neurological Exam Patient oriented to: Present: person, place, time Speech: Present: fluid speech Cranial nerves: EOM function (II, III, IV, ): Normal, facial sensation (V): Abnormal Right, facial palsy (VII): Abnormal Right, gag reflex (IX): Normal Motor strength - LUE: 5/5 Motor strength - RUE: 5/5 Motor strength - LLE: 5/5 Motor strength - RLE: 5/5 Sensory exam upper extremity: light touch: Abnormal Right Sensory exam lower extremity: light touch: Abnormal Right Coma Scale Eye Opening: Spontaneous Coma Scale Motor Response: Obeys Commands Coma Scale Verbal Response: Oriented Coma Scale Total: 15 - Skin Skin exam: Present: warm, dry, intact, normal color Course Vital Signs Temperature 98.8 F 10/15/18 01:24 Pulse Rate 81 10/15/18 01:24 Respiratory Rate 20 10/15/18 01:24 Blood Pressure 169/109 10/15/18 01:24 O2 Sat by Pulse Oximetry 98 10/15/18 01:24 Temperature 98.8 F 10/15/18 01:24 Pulse Rate 81 10/15/18 01:24 Respiratory Rate 20 10/15/18 01:24 Blood Pressure 169/109 10/15/18 01:24 O2 Sat by Pulse Oximetry 98 10/15/18 01:24 Oxygen Delivery Oxygen Delivery Room Air Medical Decision Making - MDM Narrative Medical decision making narrative: Patient work-up in the ED demonstrates chronically elevated troponin. CT of the head demonstrates no acute process. The patient EKG unremarkable. Given the numbness to right side of the face and UE, I am concerned about CVA. We will admit the patient to the hospital for MRI and further work-up. She agrees to pl an of care at this time. Accepted by Dr. Briscoe. - Medical Records Medical records reviewed: Yes I reviewed the patient's medical records. - Lab Data Lab results reviewed: Yes I reviewed the patient's lab results. Result diagrams: 10/15/18 01:54 10/15/18 01:54 Lab Results 10/15/18 10/15/18 10/15/18 Range/Units 01:54 01:54 01:54 WBC 14.3 H (4.3-11.1) K/mcL RBC 5.06 H (3.82-4.97) M/mcL Hgb 15.5 H (11.5-15.4) g/dL Hct 47.0 H (35.3-44.9) % MCV 92.9 (83.0-100.0) fL MCH 30.6 (28.0-33.3) pg MCHC 33.0 (31.6-35.5) g/dL RDW 12.1 (11.5-14.5) % Plt Count 291 (140-400) K/mcL MPV 10.1 (9.4-12.4) fL Immature Gran % 0.4 (0-4) % Seg Neutrophils % 84.7 % Lymphocytes % 9.9 % Monocytes % 4.1 % Eosinophils % 0.4 % Basophils % 0.5 % Neutrophils # 12.1 H (1.6-8.9) K/mcL Lymphocytes # 1.4 (0.6-4.6) K/mcL Monocytes # 0.6 (0.0-1.3) K/mcL Eosinophils # 0.1 (0.0-0.6) K/mcL Basophils # 0.1 (0.0-0.2) K/mcL PT 11.3 (9.4-12.1) Seconds INR 1.0 APTT 33.8 (26.0-36.0) Seconds Sodium 140 (136-145) mEq/L Potassium 3.8 (3.5-5.1) mEq/L Chloride 103 (98-107) mEq/L Carbon Dioxide 25 (23-29) mEq/L BUN 18 (6-20) mg/dL Creatinine 0.87 (0.60-1.20) mg/dL Est GFR ( Amer) > 60 (> 60) Est GFR (Non-Af Amer) > 60 (> 60) BUN/Creatinine Ratio 21 (6-26) Glucose 241 H (70-105) mg/dL Calculated Osmolality 300 (280-300) Calcium 9.4 (8.6-10.3) mg/dL Troponin I 0.07 H* (< 0.04) ng/mL - Radiology Data Radiology results reviewed: Yes I reviewed the patient's radiology results. Chest X-Ray 10/15/18 01:33 IMPRESSION: No acute disease. D/ / Gregg Miller MD / Gregg Miller MD Interpreting Provider: Gregg Miller MD Head CT 10/15/18 01:34 IMPRESSION: No acute intracranial abnormality. Right mastoid effusion could be acute or chronic. D/ / Gregg Miller MD / Gregg Miller MD Interpreting Provider: Gregg Miller MD - EKG Data EKG #1 EKG attestation: Yes I reviewed and interpreted this EKG. EKG results narrative: Heart rate 84 beats for minute. Mild ST elevation noted in V2 but likely elevated J point hard to differentiate but is only less than 1 mm in elevation. No other elevation noted. There is some ST depression noted in 2, 3, aVF as well as V6 V6 appears to be more inverted T-wave type pattern. No other acute abnormalities noted. EKG overall similar to previous EKG with the exception of some inverted T waves and ST depression noted in the inferior leads from EKG on 09/18/2017.
[2018-10-15 02:05] LABS: Basophils # 0.1 K/mcL (0.0-0.2); Basophils % 0.5 %; Eosinophils # 0.1 K/mcL (0.0-0.6); Eosinophils % 0.4 %; Hemoglobin 15.5 g/dL (11.5-15.4); Immature Granulocytes % 0.4 % (0-4); Lymphocytes # 1.4 K/mcL (0.6-4.6); Lymphocytes % 9.9 %; Mean Corpuscular Hemoglobin 30.6 pg (28.0-33.3); Mean Corpuscular Volume 92.9 fL (83.0-100.0); Mean Platelet Volume 10.1 fL (9.4-12.4); Monocytes # 0.6 K/mcL (0.0-1.3); Monocytes % 4.1 %; Neutrophils # 12.1 K/mcL (1.6-8.9); Platelet Count 291 K/mcL (140-400); Red Blood Count 5.06 M/mcL (3.82-4.97); Red Cell Distribution Width 12.1 % (11.5-14.5); Segmented Neutrophils % 84.7 %
[2018-10-15 02:12] LABS: Prothrombin Time 11.3 Seconds (9.4-12.1)
[2018-10-15 02:15] LABS: Activated Partial Thrombo Time 33.8 Seconds (26.0-36.0)
[2018-10-15 02:29] LABS: BUN/Creatinine Ratio 21 (6-26); Blood Urea Nitrogen 18 mg/dL (6-20); Calcium 9.4 mg/dL (8.6-10.3); Carbon Dioxide 25 mEq/L (23-29); Chloride 103 mEq/L (98-107); Glucose 241 mg/dL (70-105); Osmolality,Calculated 300 (280-300); Potassium 3.8 mEq/L (3.5-5.1); Sodium 140 mEq/L (136-145); eGFR For Non-African Americans > 60 (> 60)
[2018-10-15 02:30] LABS: Troponin I 0.07 ng/mL (< 0.04)
[2018-10-15] MEDS ORDERED: Aspirin 325 MG TABLET PO ONE (02:31)
[2018-10-15] MEDS ORDERED: Ondansetron 4 MG/2 ML VIAL IVP ONE (02:35)
--- NOTE | 2018-10-15 04:40 | Emergency Department Note ---
Disposition Clinical Impression: Palpitations CVA (cerebral vascular accident) Qualifiers: CVA mechanism: unspecified Qualified Code(s): I63.9 - Cerebral infarction, un specified Disposition: Admitted As Inpatient Condition: Fair Referrals: NONE,PCP [Primary Care Provider] - Forms: ED Satisfaction Letter General Adult HPI - General Chief complaint: ED Chest Pain Stated complaint: R SIDE FACIAL NUMBNESS Time Seen by Provider: 10/15/18 01:33 Source: patient, EMS Mode of arrival: EMS Limitations: no limitations Nursing Notes Reviewed: Yes Vital Signs Reviewed: Yes - History of Present Illness Pain Scale: 2 - Related Data Home Medications Medication Instructions Recorded Confirmed Albuterol Sulfate [Albuterol 2 puff IH QID PRN 09/02/17 09/18/17 Inhaler] Aspirin [Lo-Dose Aspirin EC] 81 mg PO DAILY 09/02/17 09/18/17 Budesonide/Formoterol 160/4.5 2 puff IH TID 09/02/17 09/18/17 [Symbicort 160/4.5] Ferrous Sulfate [Iron] 325 mg PO DAILY 09/02/17 09/18/17 Ipratropium [ATROVENT Inhaler] 2 puff IH QID 09/02/17 09/18/17 Montelukast [Singulair] 10 mg PO DAILY 09/02/17 09/18/17 Sertraline [Zoloft] 100 mg PO DAILY 09/02/17 09/18/17 SitaGLIPtin [Januvia] 100 mg PO DAILY 09/02/17 09/18/17 Previous Rx's Medication Instructions Recorded clonazePAM [Klonopin] 0.5 mg PO TID PRN #6 tablet 02/05/17 Albuterol Sulfate [Albuterol 1 puff IH Q6H PRN 30 Days inhaler 09/11/17 Inhaler] Carvedilol [Coreg] 25 mg PO BID #60 tablet 09/11/17 Glimepiride [Amaryl] 1 mg PO DAILY #30 tablet 09/11/17 Insulin NPH/REG 70/30 (HUMAN) 35 unit SQ HS 30 Days 09/11/17 [Humulin 70/30 Vial] Insulin NPH/REG 70/30 (HUMAN) 45 unit SQ DAILY 30 Days 09/11/17 [Humulin 70/30 Vial] Isosorbide MONOnitrate (24 HR) 60 mg PO DAILY #30 tab.er.24h 09/11/17 [Imdur] Levothyroxine [Synthroid] 175 mcg PO DAILY@0630 #30 tablet 09/11/17 Lisinopril [Zestril] 40 mg PO DAILY #30 tablet 09/11/17 Syrge-Ndl,Ins 0.3 ml Half Bryant 1 each MC BID #100 disp.syrin 09/11/17 [Veo Insulin Syringe] hydrALAZINE [HydrALAZINE] 150 mg PO Q8HR 30 Days tablet 09/11/17 predniSONE [PredniSONE] 40 mg PO BIDWM 5 Days tablet 09/11/17 Aspirin Enteric Coated [Aspirin EC] 81 mg PO DAILY tablet. 09/19/17 metFORMIN [Glucophage] 500 mg PO 0800 #60 tablet 09/19/17 Allergies Allergy/AdvReac Type Severity Reaction Status Date / Time No Known Allergies Allergy Verified 07/05/17 08:03 Constitutional: Denies: fever, chills, weakness Eyes: Denies: vision change ENT ED: Denies: ear pain, dental pain, congestion Cardiovascular: Reports: palpitations. Denies: chest pain, dyspnea on exertion, edema Respiratory: Denies: cough, dyspnea Gastrointestinal: Reports: nausea, vomiting. Denies: abdominal pain, diarrhea, constipation, hematemesis, melena, hematochezia Genitourinary: Denies: urgency, dysuria Musculoskeletal: Denies: back pain Integumentary: Denies: rash Neurological: Reports: headache, numbness, paresthesias. 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 - Social History Smoking Status: Former smoker Smokeless Tobacco Status: No Alcohol use: Reports: none Drug use: Reports: none Physical Exam - General Limitations: no limitations General appearance: alert, in no apparent distress Course Vital Signs Temperature 98.8 F 10/15/18 01:24 Pulse Rate 81 10/15/18 01:24 Respiratory Rate 20 10/15/18 01:24 Blood Pressure 169/109 10/15/18 01:24 O2 Sat by Pulse Oximetry 98 10/15/18 01:24 Temperature 98.8 F 10/15/18 01:24 Pulse Rate 81 10/15/18 01:24 Respiratory Rate 20 10/15/18 01:24 Blood Pressure 169/109 10/15/18 01:24 O2 Sat by Pulse Oximetry 98 10/15/18 01:24 Oxygen Delivery Oxygen Delivery Room Air Medical Decision Making - Medical Records Medical records reviewed: Yes I reviewed the patient's medical records. - Lab Data Lab results reviewed: Yes I reviewed the patient's lab results. Result diagrams: 10/15/18 01:54 10/15/18 01:54 Lab Results 10/15/18 10/15/18 10/15/18 Range/Units 01:54 01:54 01:54 WBC 14.3 H (4.3-11.1) K/mcL RBC 5.06 H (3.82-4.97) M/mcL Hgb 15.5 H (11.5-15.4) g/dL Hct 47.0 H (35.3-44.9) % MCV 92.9 (83.0-100.0) fL MCH 30.6 (28.0-33.3) pg MCHC 33.0 (31.6-35.5) g/dL RDW 12.1 (11.5-14.5) % Plt Count 291 (140-400) K/mcL MPV 10.1 (9.4-12.4) fL Immature Gran % 0.4 (0-4) % Seg Neutrophils % 84.7 % Lymphocytes % 9.9 % Monocytes % 4.1 % Eosinophils % 0.4 % Basophils % 0.5 % Neutrophils # 12.1 H (1.6-8.9) K/mcL Lymphocytes # 1.4 (0.6-4.6) K/mcL Monocytes # 0.6 (0.0-1.3) K/mcL Eosinophils # 0.1 (0.0-0.6) K/mcL Basophils # 0.1 (0.0-0.2) K/mcL PT 11.3 (9.4-12.1) Seconds INR 1.0 APTT 33.8 (26.0-36.0) Seconds Sodium 140 (136-145) mEq/L Potassium 3.8 (3.5-5.1) mEq/L Chloride 103 (98-107) mEq/L Carbon Dioxide 25 (23-29) mEq/L BUN 18 (6-20) mg/dL Creatinine 0.87 (0.60-1.20) mg/dL Est GFR ( Amer) > 60 (> 60) Est GFR (Non-Af Amer) > 60 (> 60) BUN/Creatinine Ratio 21 (6-26) Glucose 241 H (70-105) mg/dL Calculated Osmolality 300 (280-300) Calcium 9.4 (8.6-10.3) mg/dL Troponin I 0.07 H* (< 0.04) ng/mL - Radiology Data Radiology results reviewed: Yes I reviewed the patient's radiology results. Chest X-Ray 10/15/18 01:33 IMPRESSION: No acute disease. D/ / Gregg Miller MD / Gregg Miller MD Interpreting Provider: Gregg Miller MD Head CT 10/15/18 01:34 IMPRESSION: No acute intracranial abnormality. Right mastoid effusion could be acute or chronic. D/ / Gregg Miller MD / Gregg Miller MD Interpreting Provider: Gregg Miller MD - EKG Data EKG #1 EKG attestation: Yes I reviewed and interpreted this EKG. EKG results narrative: EKG shows a normal sinus rhythm with ventricular rate of 84. Left ventricular hypertrophy. Mild ST elevation in V1 through V4, probably due to LVH. Does not meet STEMI criteria. Attestation Statement - Attestation Attestation: I, Louie Frias MD, personally evaluated this patient and discussed their management with the resident physician. I reviewed the resident's note and agree with the documented findings, medical decision making, and plan of care. 47-year-old female presents to the emergency department with a complaint of just not feeling right. Patient states that 2 days ago she noticed numbness in the right side of her face and the right arm. Also to some degree in the right leg. No weakness. No difficulty with speech or swallowing or balance. This evening she developed some dizziness and had some nausea and vomiting. She denies any chest pain but states that she had a fluttering sensation in the left lower chest which resolved after she vomited. She does admit to some headache. On examination patient is a well-developed obese female in no acute distress. She is alert and oriented 3. There is no cyanosis or diaphoresis. Chest is nontender to palpation. Breath sounds are clear and equal bilaterally. Heart regular rate and rhythm. Abdomen is soft and nontender with normal bowel sounds. Patient does have decreased sensation to touch in the right side of the face and the right upper and lower extremity. No focal motor deficits. Labs reviewed. Patient does have an elevated troponin at 0.07 however her troponin is chronically elevated. Chest x-ray negative. Head CT shows no acute intracranial abnormality. EKG shows a normal sinus rhythm with LVH. Mild anterior ST elevation likely due to LVH. The hospitalist, Dr. Briscoe, was consulted and accepted admission of the patient.
[2018-10-15] MEDS ORDERED: Naloxone 0.4 MG/ML INJ IVP PRN (04:54)
[2018-10-15] MEDS ORDERED: *HR* Dextrose 50 % in Water (Syg) 50 ML SYRINGE IVP PRN (04:56)
[2018-10-15] MEDS ORDERED: D5% in Water 1,000 ML IVC PRN (04:56)
[2018-10-15] MEDS ORDERED: Dextrose Gel 15 GM/37.5 ML TUBE PO PRN ×2 (04:56)
[2018-10-15] MEDS ORDERED: Gadolinium Contrast Agent (WT Based) IV PRN (04:59)
--- NOTE | 2018-10-15 05:10 | Internal Med History&Physical ---
Date of Encounter: 10/15/18 Time of Encounter: 04:49 Internal Medicine - H&P: HPI Chief complaint: Right sided UE/Facial numbness History of present illness: Ms. Lo is a 47 year old female with a past medical history of diabetes, hypertension, hyperlipidemia, hypothyroidism and morbid obesity who presents to the ED due to complaints of right-sided upper extremity and facial numbness. Patient reports that symptoms began approximately 2 days ago. Numbness involves right side of the face extending down the neck into her right arm down to her hand. Patient reports that she has been under a lot of stress lately and has been very busy caring for her grandchildren while her daughter is in the hospital and therefore has been too busy to care for herself. Patient denies any weakness but does report some associated heaviness in her right arm as well. No difficulty with speech or swallowing or balance. She states that she has not taken her medications since Nicole. Earlier this evening she started experiencing a large amount of dizziness to the point where she vomited. She reports feeling fatigued and exhausted. Reports episodes of diarrhea shortly before and after arrival to the ED. Patient denies any fever, chills, headache, or shortness of breath. No reports of sick contacts. She denies any chest pain but states that she had a fluttering sensation in the left lower chest which resolved after she vomited. Initial laboratory findings showed an elevated white blood cell count of 14.3 as well as elevated hemoglobin and hematocrit. Patient does have an elevated troponin at 0.07 however her troponin is chronically elevated. Chest x-ray negative. Head CT shows no acute intracranial abnormality. EKG shows a normal sinus rhythm with nonspecific ST and T-wave changes. Patient received loading dose of aspirin in the ED Past Med Surg Social Fam HX - Past Medical History Medical history: asthma, COPD, diabetes, hypertension, thyroid disease Additional medical history: unknown Psychiatric history: no psych history, anxiety, panic disorder - Past Surgical History Surgical History: Additional surgical history: tonsilectomy - Social History Smoking Status: Former smoker Smokeless Tobacco Status: No Alcohol use: none Drug use: none - Family History Father Hx Family Cardiac Disorders: Yes Hx Family Endocrine Disorder: Yes Mother Living Status: Still Living Hx Family Cardiac Disorders: No Hx Family Respiratory Disorders: No Hx Family Cancer: Yes Hx Family GI Disorders: No Hx Family Endocrine Disorder: Yes Hx Family Neuromuscular Disorders: No Hx Family Neurologic Disorders: No Hx Family HEENT Disorders: No Hx Family Autoimmune Disorders: No Internal Medicine - H&P: Meds Budesonide/Formoterol 160/4.5 [Symbicort 160/4.5] 2 puff IH BID 09/02/17 [History] Albuterol Sulfate [Ventolin Hfa] 2 - 6 spray IH 1-3XD PRN 10/15/18 [History] Levothyroxine Sodium [Levo-T] 100 mcg PO DAILY 10/15/18 [History] Allergy/AdvReac Type Severity Reaction Status Date / Time metformin AdvReac Diarrhea Verified 10/15/18 08:44 metoprolol AdvReac LIGHT Verified 10/15/18 08:44 HEADED, NAUSEA All Systems PM: A 10-system review of systems was performed and is negative for pertinent findi ngs except as documented above in the HPI. - Constitutional Constitutional: no chills, no fever(s), no night sweats - EENT Eyes: no change in vision, no discharge, no pain, no photophobia Ears: no ear discharge, no ear pain, no tinnitus Nose, mouth and throat: no dysphagia, no nasal discharge, no neck pain, no sore throat - Cardiovascular Cardiovascular ROS IM: no chest pain, no diaphoresis, no dyspnea, no lightheadedness, no palpitations, no syncope - Respiratory Respiratory: no cough, no dyspnea, no wheezing, no excessive phlegm production - Gastrointestinal Gastrointestinal: no abdominal pain, no diarrhea, no hematemesis, no hematochezia, no melena, no nausea, no vomiting - Genitourinary Genitourinary: no change in urinary stream, no dysuria, no flank pain, no hematuria - Musculoskeletal Musculoskeletal ROS IM: no numbness, no tingling - Integumentary Integumentary IM: no rash, no unusual bruising - Neurological Neurological ROS: no confusion, no convulsions, no focal weakness, no numbness, no tingling, no tremor(s) - Hematologic/Lymphatic Hematologic/Lymphatic: no easy bruising - Constitutional Vitals: Temp Pulse Resp BP Pulse Ox 98.8 F 81 20 169/109 98 10/15/18 01:24 10/15/18 01:24 10/15/18 01:24 10/15/18 01:24 10/15/18 01:24 Exam: General: Alert and oriented 3 sitting upright in bed. Skin:Normal color, no rash, no lesions. HEENT:EOM, pupils equal, round and reactive. Cardiovascular:Normal S1 & S2, no rubs, murmurs or gallops. No JVD. Pulse r egular. Lungs:Normal breath sounds, no wheezes or crackles. Abdomen:Soft, non-tender, no rigidity. Extremities:No deformity, no edema or tenderness, no joint swelling or clubbing. Neurological:Normal cognition and motor skills. Cranial nerves II through XII intact. Muscle strength 5 out of 5 in the upper and lower extremities. No evidence of pronator drift. No evidence of dysmetria. Decreased sensation on the right side of the face and right upper extremity. Pulses:Carotid and radial pulses normal +2. Rest of the physical exam is non contributory Internal Med - H&P Results - Labs CBC & Chem 7: 10/15/18 08:34 10/15/18 08:34 Labs: Short CBC 10/15/18 Range/Units 01:54 WBC 14.3 H (4.3-11.1) K/mcL Hgb 15.5 H (11.5-15.4) g/dL Hct 47.0 H (35.3-44.9) % Plt Count 291 (140-400) K/mcL Neutrophils # 12.1 H (1.6-8.9) K/mcL BMP 10/15/18 01:54 Sodium 140 Potassium 3.8 Chloride 103 Carbon Dioxide 25 BUN 18 Creatinine 0.87 Glucose 241 H Calcium 9.4 Cardiac Enzymes 10/15/18 Range/Units 01:54 Troponin I 0.07 H* (< 0.04) ng/mL - Impressions ITS Impressions Chest X-Ray 10/15/18 01:33 IMPRESSION: No acute disease. D/ / Gregg Miller MD / Gregg Miller MD Interpreting Provider: Gregg Miller MD Head CT 10/15/18 01:34 IMPRESSION: No acute intracranial abnormality. Right mastoid effusion could be acute or chronic. D/ / Gregg Miller MD / Gregg Miller MD Interpreting Provider: Gregg Miller MD - Assessment and plan (1) Right sided numbness Current Visit: Yes Status: Acute Assessment and plan: Patient presents with a right-sided facial and right upper extremity numbness for the past 2 days. Decreased sensation noted on physical examination on the right side. No other focal neurological deficits. Initial imaging of the head showed no acute intracranial abnormalities. Patient received loading dose of aspirin in the ED. -Neuro checks -Allow for permissive hypertension -telemetry -We will obtain echocardiogram -MRA of the head and neck Consult to neurology (2) Elevated troponin I level Current Visit: No Status: Acute Assessment and plan: Elevated troponin of 0.07. Patient appears to have chronically elevated troponins. Patient denies any chest pain but did note brief episode of palpitations prior to episode of emesis. Subtle changes in EKG were noted when compared to previous EKG in 2017 with possible T-wave inversions in aVF and V6. -Trend troponin -Obtain echocardiogram -Consider cardiology consult (3) Palpitations Current Visit: Yes Status: Acute Assessment and plan: Patient reports episode of palpitations associated with shortly thereafter with nausea and vomiting. Patient has not taken her Synthroid since . 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 Patient has not been taking her Synthroid since . Now c/o significant fatigue and palpatations. -We will check TSH. Qualifiers: Hypothyroidism type: unspecified Qualified Code(s): E03.9 - Hypothyroidism, unspecified (5) Leukocytosis Current Visit: Yes Status: Acute Assessment and plan: Mild leukocytosis of 14.3 in the setting of elevated hemoglobin and hematocrit. Suspect secondary to hemoconcentration. We will monitor for now and give maintenance fluids. Qualifiers: Leukocytosis type: unspecified Qualified Code(s): D72.829 - Elevated white blood cell count, unspecified (6) COPD (chronic obstructive pulmonary disease) Current Visit: No Status: Chronic Assessment and plan: No evidence of an acute exacerbation. -Resume home inhalers. Qualifiers: COPD type: unspecified COPD Qualified Code(s): J44.9 - Chronic obstructive pulmonary disease, unspecified (7) Diabetes mellitus Current Visit: No Status: Chronic Assessment and plan: Blood glucose elevated on initial assessment. Blood glucose checks. Diabetic diet. Sliding scale insulin. Qualifiers: Diabetes mellitus type: type 2 Diabetes mellitus chain hooker insulin use: without chain hooker use Diabetes mellitus complication status: with hyperglycemia Qualified Code(s): E11.65 - Type 2 diabetes mellitus with hyperglycemia (8) Essential hypertension Current Visit: No Status: Chronic Assessment and plan: Patient presents with elevated blood pressure. -Allow for permissive hypertension for the first 24 hours due to concern for CVA. (9) DVT prophylaxis Current Visit: No Status: Acute Assessment and plan: Subcutaneous heparin - Time Spent With Patient Total time spent is greater than 50% in coordination of care (as documented) at patient's floor/unit and/or counseling patient:
[2018-10-15] MEDS ORDERED: 0.9 % Sodium Chloride 1,000 ML IVC SCH (05:15)
[2018-10-15] MEDS: Aspirin Enteric Coated 81 MG Tablet PO SCH (07:32)
[2018-10-15] MEDS: Ondansetron 4 MG/2 ML VIAL IVP PRN (07:47)
[2018-10-15] MEDS: *HR* Heparin 5,000 UNIT/ML VIAL SQ SCH ×3 (07:50→21:32)
[2018-10-15] MEDS: Insulin LISPRO 300 UNITS/3 ML VIAL SQ SCH ×3 (07:50→16:06)
[2018-10-15 09:12] LABS: Alanine Aminotransferase 13 Units/L (7-52); Albumin 4.1 g/dL (3.5-5.7); Albumin/Globulin Ratio 1.4 (1.1-2.2); Alkaline Phosphatase 99 Units/L (34-104); Aspartate Amino Transferase 23 Units/L (13-39); BUN/Creatinine Ratio 19 (6-26); Bilirubin,Total 0.5 mg/dL (0.3-1.0); Blood Urea Nitrogen 17 mg/dL (6-20); Calcium 9.3 mg/dL (8.6-10.3); Carbon Dioxide 27 mEq/L (23-29); Chloride 102 mEq/L (98-107); Globulin 2.9 g/dL (2.4-3.5); Glucose 322 mg/dL (70-105); Osmolality,Calculated 302 (280-300); Potassium 4.1 mEq/L (3.5-5.1); Sodium 139 mEq/L (136-145); eGFR For Non-African Americans > 60 (> 60)
[2018-10-15 09:15] LABS: Hematocrit 46.9 % (35.3-44.9); Hemoglobin 15.7 g/dL (11.5-15.4); Mean Corpuscular HGB Conc 33.5 g/dL (31.6-35.5); Mean Corpuscular Hemoglobin 30.7 pg (28.0-33.3); Mean Corpuscular Volume 91.6 fL (83.0-100.0); Mean Platelet Volume 10.2 fL (9.4-12.4); Platelet Count 237 K/mcL (140-400); Red Blood Count 5.12 M/mcL (3.82-4.97); Red Cell Distribution Width 12.4 % (11.5-14.5)
[2018-10-15 09:31] LABS: Troponin I 0.07 ng/mL (< 0.04)
[2018-10-15 09:55] LABS: Thyroid Stimulating Hormone 79.09 mcIU/mL (0.340-5.600)
--- NOTE | 2018-10-15 10:41 | Neurology - Consult Note ---
Addendum entered and electronically signed by Fabián Vidal DO 10/17/18 08:57: Original Note: <Fabián Vidal - Last Filed: 10/15/18 11:39> Date of Encounter: 10/15/18 Time of Encounter: 10:40 Assessment and Plan (1) Right sided numbness Current Visit: Yes Status: Acute - Patient initially presented with right upper extremity and right facial numbness/decreased sensation - No prior episodes; no focal weakness - Patient has multiple CVA risk factors, including HLD, HTN, and DM - Head CT showed no acute process - Per chart review, patient was noted to have decreased sensation on the right side of her face and RUE Plan: - MRA of the head and neck pending - MRI of the head and brain pending - Echocardiogram pending - Continue stroke precautions - Continue ASA History of Present Illness HPI: Katherine Lo is a 47-year-old female with a PMH of DM, HTN, HLD, hypothyroidism, and morbid obesity who presented to [facility] ED on 10/14/18 with chief complaint of right upper extremity and facial numbness. She reported the symptoms began approximately 2 days prior to admission. She noted that she was under a lot of stress lately, and that it has been very difficult for her to take care of her grandchildren. Denied having any weakness. Reported a heaviness sensation in her right arm. Denied having any difficulties with speech or gait disturbances. Also noted that she had not taken her medications since . Upon arrival to the ED, vital signs were significant for an elevated respiratory rate of 20 and elevated blood pressure 169/109. EKG demo nstrated normal sinus rhythm, nonspecific ST and T wave changes. CT scan of the head was obtained; demonstrated no acute process. Patient was admitted for CVA workup. MRI of the head, MRA of the head and neck, and echocardiogram were all ordered. Patient was started on aspirin. Past Med Surg Social Fam HX - Past Medical History Medical history: asthma, COPD, diabetes, fibromyalgia, hypertension, thyroid disease Additional medical history: unknown Psychiatric history: no psych history, anxiety, panic disorder - Past Surgical History Surgical History: Additional surgical history: tonsilectomy - Social History Smoking Status: Current every day smoker Packs per day: 1/2 Smokeless Tobacco Status: No Alcohol use: none Drug use: none - Family History Father Hx Family Cardiac Disorders: Yes Hx Family Endocrine Disorder: Yes Mother Living Status: Still Living Hx Family Cardiac Disorders: No Hx Family Respiratory Disorders: No Hx Family Cancer: Yes Hx Family GI Disorders: No Hx Family Endocrine Disorder: Yes Hx Family Neuromuscular Disorders: No Hx Family Neurologic Disorders: No Hx Family HEENT Disorders: No Hx Family Autoimmune Disorders: No Medications and Allergies Budesonide/Formoterol 160/4.5 [Symbicort 160/4.5] 2 puff IH BID 09/02/17 [History] Albuterol Sulfate [Ventolin Hfa] 2 - 6 spray IH 1-3XD PRN 10/15/18 [History] Levothyroxine Sodium [Levo-T] 100 mcg PO DAILY 10/15/18 [History] Allergy/AdvReac Type Severity Reaction Status Date / Time metformin AdvReac Diarrhea Verified 10/15/18 08:44 metoprolol AdvReac LIGHT Verified 10/15/18 08:44 HEADED, NAUSEA All Systems: The remainder of the systems were reviewed and are negative Physical Examination - Vital Signs Vital Signs: Initial Vital Signs Temp Pulse Resp BP Pulse Ox 98.8 F 81 20 169/109 98 10/15/18 01:24 10/15/18 01:24 10/15/18 01:24 10/15/18 01:24 10/15/18 01:24 Results - Laboratory Findings CBC and BMP: 10/15/18 08:34 10/15/18 08:34 Abnormal lab findings: Abnormal lab results RBC 5.12 M/mcL (3.82-4.97) H 10/15/18 08:34 Hgb 15.7 g/dL (11.5-15.4) H 10/15/18 08:34 Hct 46.9 % (35.3-44.9) H 10/15/18 08:34 Neutrophils # 12.1 K/mcL (1.6-8.9) H 10/15/18 01:54 Glucose 322 mg/dL (70-105) H 10/15/18 08:34 Calculated Osmolality 302 (280-300) H 10/15/18 08:34 Troponin I 0.07 ng/mL (< 0.04) H* 10/15/18 08:34 TSH 79.090 mcIU/mL (0.340-5.600) H 10/15/18 08:34 Consult Discharge Plan - Plan Referrals: NONE,PCP [Primary Care Provider] - <Zhang Christina - Last Filed: 10/15/18 16:58> Date of Encounter: 10/15/18 Time of Encounter: 16:50 Assessment and Plan (1) Left thalamic infarction Current Visit: Yes Status: Acute Patient has unfortunately experienced an infarct in the left thalamus. However the infarct is small and I expect that she has a good chance of making a full recovery. Her risk factors include obesity, diabetes mellitus, hypertension as well as hyperlipidemia. She was hypotensive upon arrival. Previously diagnosed with these risk factors however had not been of following up with taking medication as directed previously. I believe that this is more than likely a small vessel event considering the location. I would simply recommend normalizing her blood pressure tomorrow, as well as initiating aspirin 81 mg daily indefinitely. Aggressive management of her risk factors and medication compliance I strongly recommended. She also smokes cigarettes which I also strongly advise a smoking cessation program. Ultimately changes in her dietary regimen will also be beneficial. I will reevaluate her your request. History of Present Illness HPI: The chart was reviewed, the patient was seen and examined independently. The case was discussed with the neurology resident on service. I agree with his assessment as stated above. Ms. Lo is a 47 year old female who does have a prior medical history of hypertension hyperlipidemia and diabetes. However she states that she is not on medication therapy for any of them for quite some time. She is not been taking an aspirin daily either. MRI scan of the brain was reviewed and does reveal an acute left thalamic infarct. Echocardiogram revealed no evidence of PFO. Cardiology recommended SHELIA. MRA scan of the brain and of the neck revealed no evidence of flow-limiting stenosis. Patient is now awake and alert is still experiencing paresthesias of the right face arm and leg. All Systems: The remainder of the systems were reviewed and are negative Review of Systems: The balance of the systems review is negative. Physical Examination - Vital Signs Vital Signs: Initial Vital Signs Temp Pulse Resp BP Pulse Ox 98.8 F 81 20 169/109 98 10/15/18 01:24 10/15/18 01:24 10/15/18 01:24 10/15/18 01:24 10/15/18 01:24 - Exam Exam: General Examination: *CONSTITUTIONAL: normal *GENERAL APPEARANCE OF PATIENT appears healthy and well groomed *EYES: pupils equal, round, reactive to light and accommodation, conjunctiva clear without masses or ulcerations, fundi normal. *CARDIOVASCULAR no peripheral edema, distal temperature normal, dorsalis pedis pulses normal. Refer to vital signs Musculoskeletal: *GAIT AND STATION normal, with normal Romberg testing, no abnormalities such as broad base gait or spasticity *ASSESSMENT OF MUSCLE STRENGTH IN THE UPPER AND LOWER EXTREMITIES findings right deltoid, 4/5 bicep, tricep, baby sitter strength, hip flexors ,anterior tibi rod, are all 4/5 dorsoflexion of the foot normal. Left upper extremity and left lower extremity are normal. *MUSCLE TONE IN THE UPPER AND LOWER EXTREMITIES normal. No abnormal movements, fasciculations or atrophy identified. Neurological: *ORIENTATION to time and place *RECURRENT AND REMOTE MEMORY intact *ATTENTION AND CONCENTRATION are normal *LANGUAGE FUNCTION no significant aphasia or dysarthia was noted. *FUND OF KNOWLEDGE aware of current events, past history, vocabulary *MENTAL attention span and concentration normal. *CN II optic fundi were normal, no papilledema noted. *CN III,IV, PERRLA extraocular eye movements were full, no nystagmus and no ptosis noted. *CN V she does have impaired sensation in the right face. and jaw opens symmetrically. *CN VII shows normal facial movement symmetrically, upper and lower bilaterally. *CN VIII shows no significant hearing loss on examination in the office. *CN IX,,X palate elevated symmetrically and normal gag reflex was noted. *CN XI normal strength in the sternocleidomastoid muscles, symmetrical shoulder shrugging. *CN XII tongue protruded in the midline, with normal strength and movement. *SENSORY EXAMINATION paresthesias and numbness of present of the right face right arm and right leg. *REFLEXES: deep tendon reflexes were normal and symmetrical , grade 2/4 diffusely, no pathological reflexes were noted. *CEREBELLAR TESTING normal finger to nose, heel/knee/mosley, and tandem walk. *PAIN LEVEL-0 Results - Laboratory Findings CBC and BMP: 10/15/18 08:34 10/15/18 08:34 Abnormal lab findings: Abnormal lab results RBC 5.12 M/mcL (3.82-4.97) H 10/15/18 08:34 Hgb 15.7 g/dL (11.5-15.4) H 10/15/18 08:34 Hct 46.9 % (35.3-44.9) H 10/15/18 08:34 Neutrophils # 12.1 K/mcL (1.6-8.9) H 10/15/18 01:54 Glucose 322 mg/dL (70-105) H 10/15/18 08:34 POC Glucose 185 mg/dL (70-99) H 10/15/18 11:54 Calculated Osmolality 302 (280-300) H 10/15/18 08:34 Troponin I 0.06 ng/mL (< 0.04) H* 10/15/18 14:23 TSH 79.090 mcIU/mL (0.340-5.600) H 10/15/18 08:34 Ur Specific [place] 1.030 (1.010-1.025) H 10/15/18 14:25 Urine Protein 100 mg/dL (Neg-Trace) H 10/15/18 14:25 Urine Glucose (UA) 500 mg/dL (Normal) H 10/15/18 14:25 Ur Squamous Epith Cells Many per lpf (None-Few) H 10/15/18 14:25
--- NOTE | 2018-10-15 11:53 | Event Note ---
Date of Encounter: 10/15/18 Time of Encounter: 11:53 Patient was seen and examined earlier this morning by the hospitalist-patient's past history of diabetes hypertension hyperlipidemia hypothyroidism morbid obesity and presented with complaints of right Sided upper extremity and facial numbness. These symptoms have been going on for approximately 2 days. 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 She does admit that she has not been taking her medications the last time she took her Synthroid was on [place]. She has not been taking blood pressure medicine and does not even know what she is on at this time. She also admits that she is noncompliant with her diabetes and does not monitor blood glucose. She does have some palpitations prior to presenting however pain or shortness of breath. She did undergo MRI did reveal a 5.7 mm area ever stricter diffusion in the left thalamus as highly suggestive of an acute area of infarct patient has been experiencing symptoms for 2 days and has passed the window or TPA. She continues to experience right-sided facial numbness neck MRA head and neck does show no obvious abnormality of the neck vessels/no significant abnormality of the intracranial circulation. I did speak with neurology and update them on the MRI results.. I also discussed this case with cardiology who will see patient on consult appreciate recommendations. We will check A1c as well as lipid profile resume patient's Synthroid. We will allow for permissive hypertension at this time continuous cardiac monitoring
--- NOTE | 2018-10-15 12:44 | Event Note ---
Date of Encounter: 10/15/18 Time of Encounter: 12:41 - Cardiology Event Note Cardiology consult reason states elevated troponin and palpitations. Chart reviewed and discussed with Dr. Chacon. Troponins 0.07 x 2. Troponins chronically elevated dating back to 2014. Current troponins are the lowest they have been and in setting of abnormal brain MRI- 5.7mm area of restricted diffusion in left thalamus highly suggestive of acute area of infarct. Neurology following. ECG reviewed with anterior ST changes noted, likely r/t CVA. 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 TTE 09/02/17 EF preserved. Telemetry reviewed--no arrhythmias noted. TSH 79.090--recommend addressing per primary team. Would recommend repeat TTE in setting of CVA. No further cardiac recs. Pt is not a candidate for ischemic eval in setting of CVA. Please reconsult as needed or if any significant TTE findings.
[2018-10-15 14:43] LABS: Bilirubin,Urine Negative (Negative); Blood,Urine Negative (Negative); Clarity,Urine Clear (Clear); Color,Urine Yellow (Yellow); Glucose,Urine (UA) 500 mg/dL (Normal); Ketones,Urine Negative (Negative); Leukocyte Esterase,Urine Negative (Negative); Nitrite,Urine Negative (Negative); Protein,Urine 100 mg/dL (Neg-Trace); Urobilinogen,Urine Normal (Normal)
[2018-10-15 14:44] LABS: Bacteria,Urine Few per hpf (None-Few); Hyaline Casts,Urine None Seen per lpf (None-Few); RBC,Urine 0-3 per hpf (0-3); Squamous Epithelial Cell,Urine Many per lpf (None-Few); WBC,Urine 0-3 per hpf (0-3)
[2018-10-15] MEDS ORDERED: 0.9 % Sodium Chloride 500 ML ONE (15:10)
--- NOTE | 2018-10-15 15:30 | Electrocardiograph Report ---
[address] [place], [place] [address] Test Date: 2018-10-15 Pat Name: Katherine Lo Department: [id number] Room: 3B64 Gender: F [employer] Operator: : 1970 Requested By: Ozzy Black Order Number: [id number] Reading MD: Uvaldo Zapata Measurements Intervals [place] Rate: 84 P: 67 VA: 154 QRS: 69 QRSD: 113 T: -53 QT: 426 QTc: 504 Interpretive Statements Sinus rhythm Probable left ventricular hypertrophy ST-T changes due to hypertrophy and/or ischemia Borderline prolonged QT interval Electronically Signed On 10-15-2018 15:29:13 EST by Uvaldo Zapata
--- NOTE | 2018-10-16 05:17 | Event Note ---
Date of Encounter: 10/16/18 Time of Encounter: 04:55 Alerted by patient's nurse SUSIE Covarrubias that patient's BP was 174/114. Patient admitted for CVA. Imaging showed left thalamic infarction and patient still experiencing right-sided numbness. In reviewing neurology's notes, Dr. Christina recommendation is to normalize patient's blood pressure today and initiate aspirin 81 mg daily indefinitely. Notified Dr. Breen of the situation and Dr. Christina's recommendation. Dr. Breen's recommendation to treat current hypertension with 5 mg of hydralazine so as not to over correct acutely. One- time order of 5 mg IVP hydralazine ordered with instructions to monitor patient's BP every 15 minutes 4 after administration. Patient to be monitored closely.
[2018-10-16] MEDS: *HR* Heparin 5,000 UNIT/ML VIAL SQ SCH ×3 (05:32→21:05)
[2018-10-16] MEDS ORDERED: *HR* LORazepam 2 MG/ML VIAL IVP ONE (05:57)
[2018-10-16] MEDS: Aspirin Enteric Coated 81 MG Tablet PO SCH (07:14)
[2018-10-16 07:19] LABS: Basophils # 0.1 K/mcL (0.0-0.2); Basophils % 0.7 %; Eosinophils # 0.1 K/mcL (0.0-0.6); Eosinophils % 1.1 %; Hematocrit 43.3 % (35.3-44.9); Immature Granulocytes % 0.3 % (0-4); Lymphocytes % 22.2 %; Mean Corpuscular HGB Conc 32.6 g/dL (31.6-35.5); Mean Corpuscular Hemoglobin 30.8 pg (28.0-33.3); Mean Corpuscular Volume 94.5 fL (83.0-100.0); Monocytes # 0.5 K/mcL (0.0-1.3); Monocytes % 5.5 %; Neutrophils # 6.2 K/mcL (1.6-8.9); Platelet Count 198 K/mcL (140-400); Red Blood Count 4.58 M/mcL (3.82-4.97); Red Cell Distribution Width 12.3 % (11.5-14.5); Segmented Neutrophils % 70.2 %
[2018-10-16 07:24] LABS: Hemoglobin 14.1 g/dL (11.5-15.4)
[2018-10-16 07:29] LABS: INR 1.1; Prothrombin Time 12.5 Seconds (9.4-12.1)
[2018-10-16 07:39] LABS: BUN/Creatinine Ratio 16 (6-26); Blood Urea Nitrogen 12 mg/dL (6-20); Calcium 8.8 mg/dL (8.6-10.3); Carbon Dioxide 28 mEq/L (23-29); Chloride 102 mEq/L (98-107); Chol/HDL Ratio 5.8 (0-4.9); Cholesterol 187 mg/dL (< 200); Glucose 222 mg/dL (70-105); HDL Cholesterol 32 mg/dL (40-59); LDL Cholesterol,Calculated 125 mg/dL (0-99); Osmolality,Calculated 287 (280-300); Potassium 3.6 mEq/L (3.5-5.1); Sodium 135 mEq/L (136-145); Triglycerides 150 mg/dL (< 150); eGFR For Non-African Americans > 60 (> 60)
[2018-10-16] MEDS: Insulin LISPRO 300 UNITS/3 ML VIAL SQ SCH ×3 (08:03→16:51)
[2018-10-16] MEDS: Lisinopril 20 MG TABLET PO SCH (12:38)
[2018-10-16 15:23] LABS: Estimated Average Glucose 240 mg/dl
--- NOTE | 2018-10-16 17:00 | Internal Med Progress Note ---
Hospitalist Progress Note - Encounter Date of Encounter: 10/16/18 Time of Encounter: 11:00 - Subjective Interval History: Patient was seen and examined earlier today Cont to complain of r sided numbness and tingling. Denies any pain or discomfort Discussed treatment plan Patient verbalized understanding - Exam Vitals: Temp Pulse Resp BP Pulse Ox 98.3 F 59 16 170/104 95 10/16/18 15:49 10/16/18 15:49 10/16/18 15:49 10/16/18 16:50 10/16/18 15:49 Exam: General: Alert and oriented 3 sitting upright in bed. Skin:Normal color, no rash, no lesions. HEENT:EOM, pupils equal, round and reactive. Cardiovascular:Normal S1 & S2, no rubs, murmurs or gallops. No JVD. Pulse regular. Lungs:Normal breath sounds, no wheezes or crackles. Abdomen:Soft, non-tender, no rigidity. Extremities:No deformity, no edema or tenderness, no joint swelling or clubbing. Neurological:Normal cognition and motor skills. Cranial nerves II through XII intact. Muscle strength 4/5 r upper extremity 5/5 L upper extremity normal lower extremity strength No evidence of pronator drift. No evidence of dysmetria. Decreased sensation on the right side of the face and right upper extremity. Pulses:Carotid and radial pulses normal +2. Rest of the physical exam is non contributory - Assessment and Plan (1) DVT prophylaxis Current Visit: No Status: Acute Assessment and Plan: Subcutaneous heparin (2) Diabetes mellitus Current Visit: No Status: Chronic Assessment and Plan: Blood glucose elevated on initial assessment. Blood glucose checks. Diabetic diet. Sliding scale insulin. 10/16/2018 Improving cont with SSI and accucheck ac hs check A1c Patient has been noncompliant and has had uncontrolled glucose- she may require insulin upon discharge- awaiting A1c (3) Elevated troponin I level Current Visit: No Status: Acute Assessment and Plan: Elevated troponin of 0.07. Patient appears to have chronically elevated troponins. Patient denies any chest pain but did note brief episode of palpitations prior to episode of emesis. Subtle changes in EKG were noted when compared to previous EKG in 2017 with possible T-wave inversions in aVF and V6. -Trend troponin -Obtain echocardiogram -Consider cardiology consult 10/16/2018 Tropinin chronically elevated cardiology consulted -No further cardiac recs. Pt is not a candidate for ischemic eval in setting of CVA. TTE LVEF 55-60%. Severe concentric left ventricular hypertrophy. Moderate left ventricular diastolic dysfunction. Normal right ventricular structure and function. Trace tricuspid regurgitation. No evidence of pulmonary hypertension. There is a trivial to small sized pericardial effusion present. There is no echocardiographic evidence of tamponade. (4) Essential hypertension Current Visit: No Status: Chronic Assessment and Plan: Patient presents with elevated blood pressure. -Allow for permissive hypertension for the first 24 hours due to concern for CVA. 10/16/2018 Started patient on lisinopril 20mg daily may need to increase and possibly add a CCB hydralazine as needed (5) COPD (chronic obstructive pulmonary disease) Current Visit: No Status: Chronic Assessment and Plan: No evidence of an acute exacerbation. -Resume home inhalers. 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 Patient has not been taking her Synthroid since . Now c/o significant fatigue and palpatations. -We will check TSH. 10/16/2018 Resumed synthroid (7) Palpitations Current Visit: Yes Status: Acute Assessment and Plan: Patient reports episode of palpitations associated with shortly thereafter with nausea and vomiting. Patient has not taken her Synthroid since . -Telemetry -We will obtain TSH level -Obtain echocardiogram 10/16/2018 seen by cardiology no further workup TSH elevated which his probably contributing to palpitations SHELIA LVEF 55-60%. Severe concentric left ventricular hypertrophy. Moderate left ventricular diastolic dysfunction. Normal right ventricular structure and function. Trace tricuspid regurgitation. No evidence of pulmonary hypertension. There is a trivial to small sized pericardial effusion present. There is no echocardiographic evidence of tamponade. (8) Right sided numbness Current Visit: Yes Status: Acute Assessment and Plan: Patient presents with a right-sided facial and right upper extremity numbness for the past 2 days. Decreased sensation noted on physical examination on the right side. No other focal neurological deficits. Initial imaging of the head showed no acute intracranial abnormalities. Patient received loading dose of aspirin in the ED. -Neuro checks -Allow for permissive hypertension -telemetry -We will obtain echocardiogram -MRA of the head and neck Consult to neurology 10/16/2018 -cont telemetry MRI MRI scan of the brain was reviewed and does reveal an acute left thalamic infarct. Echocardiogram revealed no evidence of PFO. SHELIA LVEF 55-60%. Severe concentric left ventricular hypertrophy. Moderate left ventricular diastolic dysfunction. Normal right ventricular structure and function. Trace tricuspid regurgitation. No evidence of pulmonary hypertension. There is a trivial to small sized pericardial effusion present. There is no echocardiographic evidence of tamponade. cont with ASA statin neurology consulted recommending Aggressive management of her risk factors and medication compliance- encourage smoking cessation normalizing BP (9) Leukocytosis Current Visit: Yes Status: Acute Assessment and Plan: Mild leukocytosis of 14.3 in the setting of elevated hemoglobin and hematocrit. Suspect secondary to hemoconcentration. We will monitor for now and give maintenance fluids 10/16/2018 improved -resolved . - Time Spent with Patient Total time spent is greater than 50% in coordination of care (as documented) at patient's floor/unit and/or counseling patient: Internal Medicine: Result - Labs CBC & Chem 7: 10/16/18 07:00 10/16/18 07:00 Labs: Short CBC 10/16/18 Range/Units 07:00 WBC 8.9 (4.3-11.1) K/mcL Hgb 14.1 D (11.5-15.4) g/dL Hct 43.3 (35.3-44.9) % Plt Count 198 (140-400) K/mcL Neutrophils # 6.2 (1.6-8.9) K/mcL BMP 10/16/18 07:00 Sodium 135 L Potassium 3.6 Chloride 102 Carbon Dioxide 28 BUN 12 Creatinine 0.73 Glucose 222 H Calcium 8.8 - ABG Interpretation ABG results: PT/INR, D-dimer PT 12.5 Seconds (9.4-12.1) H 10/16/18 07:00 Consult Discharge Plan - Plan Referrals: Edgar Carmichael Jr, PHOTO JOURNALIST [Advanced Practice Nurse] - 10/23/18 9:00 am (2) Diabetes mellitus Qualifiers: Diabetes mellitus type: type 2 Diabetes mellitus assisted insulin use: without assisted use Diabetes mellitus complication status: with hyperglycemia Qualified Code(s): E11.65 - Type 2 diabetes mellitus with hyperglycemia (5) COPD (chronic obstructive pulmonary disease) Qualifiers: COPD type: unspecified COPD Qualified Code(s): J44.9 - Chronic obstructive pulmonary disease, unspecified (6) Hypothyroid Qualifiers: Hypothyroidism type: unspecified Qualified Code(s): E03.9 - Hypothyroidism, unspecified (9) Leukocytosis Qualifiers: Leukocytosis type: unspecified Qualified Code(s): D72.829 - Elevated white blood cell count, unspecified
[2018-10-16] MEDS ORDERED: Insulin LISPRO 300 UNITS/3 ML VIAL SQ SCH (21:00)
[2018-10-16] MEDS: Ondansetron 4 MG/2 ML VIAL IVP PRN (21:05)
[2018-10-17] MEDS: *HR* Heparin 5,000 UNIT/ML VIAL SQ SCH ×3 (06:27→20:26)
[2018-10-17] MEDS: Aspirin Enteric Coated 81 MG Tablet PO SCH (07:43)
[2018-10-17] MEDS: Lisinopril 20 MG TABLET PO SCH (07:43)
[2018-10-17] MEDS: Insulin LISPRO 300 UNITS/3 ML VIAL SQ SCH ×2 (07:43→11:47)
[2018-10-17 11:32] LABS: Basophils # 0.1 K/mcL (0.0-0.2); Basophils % 0.8 %; Eosinophils # 0.1 K/mcL (0.0-0.6); Eosinophils % 1.2 %; Hematocrit 41.8 % (35.3-44.9); Hemoglobin 13.9 g/dL (11.5-15.4); Immature Granulocytes % 0.4 % (0-4); Lymphocytes # 2.5 K/mcL (0.6-4.6); Lymphocytes % 29.8 %; Mean Corpuscular HGB Conc 33.3 g/dL (31.6-35.5); Mean Corpuscular Hemoglobin 30.3 pg (28.0-33.3); Mean Corpuscular Volume 91.1 fL (83.0-100.0); Mean Platelet Volume 10.1 fL (9.4-12.4); Monocytes # 0.6 K/mcL (0.0-1.3); Monocytes % 7.2 %; Neutrophils # 5.2 K/mcL (1.6-8.9); Platelet Count 235 K/mcL (140-400); Red Blood Count 4.59 M/mcL (3.82-4.97); Red Cell Distribution Width 12.2 % (11.5-14.5); Segmented Neutrophils % 60.6 %
[2018-10-17 11:51] LABS: BUN/Creatinine Ratio 11 (6-26); Blood Urea Nitrogen 9 mg/dL (6-20); Calcium 9.2 mg/dL (8.6-10.3); Carbon Dioxide 31 mEq/L (23-29); Chloride 101 mEq/L (98-107); Glucose 190 mg/dL (70-105); Osmolality,Calculated 288 (280-300); Potassium 3.3 mEq/L (3.5-5.1); Sodium 137 mEq/L (136-145); eGFR For Non-African Americans > 60 (> 60)
[2018-10-17] MEDS ORDERED: Lisinopril 20 MG TABLET PO ONE (14:15)
[2018-10-17] MEDS ORDERED: Lisinopril 20 MG TABLET PO SCH (14:15)
[2018-10-17] MEDS: Insulin NPH/REG 70/30 100 UNIT/ML (x5UNIT) SQ SCH (16:44)
--- NOTE | 2018-10-17 21:18 | Internal Med Progress Note ---
Hospitalist Progress Note - Encounter Date of Encounter: 10/17/18 Time of Encounter: 12:00 - Subjective Interval History: Patient was seen and examined earlier today States numbness is improving to R side Discussed importance of BP Glucose control - She verbalized understanding - Exam Vitals: Temp Pulse Resp BP Pulse Ox 97.8 F 52 17 149/95 96 10/17/18 19:50 10/17/18 19:50 10/17/18 19:50 10/17/18 19:50 10/17/18 19:50 Exam: General: Alert and oriented 3 sitting upright in bed. Skin:Normal color, no rash, no lesions. HEENT:EOM, pupils equal, round and reactive. Cardiovascular:Normal S1 & S2, no rubs, murmurs or gallops. No JVD. Pulse regular. Lungs:Normal breath sounds, no wheezes or crackles. Abdomen:Soft, non-tender, no rigidity. Extremities:No deformity, no edema or tenderness, no joint swelling or clubbing. Neurological:Normal cognition and motor skills. Cranial nerves II through XII intact. Muscle strength 4/5 r upper extremity 5/5 L upper extremity normal lower extremity strength No evidence of pronator drift. No evidence of dysmetria. Decreased sensation on the right side of the face and right upper extremity. Pulses:Carotid and radial pulses normal +2. Rest of the physical exam is non contributory - Assessment and Plan (1) DVT prophylaxis Current Visit: No Status: Acute Assessment and Plan: Subcutaneous heparin (2) Diabetes mellitus Current Visit: No Status: Chronic Assessment and Plan: Blood glucose elevated on initial assessment. Blood glucose checks. Diabetic diet. Sliding scale insulin. 10/16/2018 Improving cont with SSI and accucheck ac hs check A1c Patient has been noncompliant and has had uncontrolled glucose- she may require insulin upon discharge- awaiting A1c 10/17/2018 HgbA1c 10- Discussed insulin use with the patient States she has been on insulin before- expressed financial concern- Case Dominik gutierrez reviewed cost - Also discussed Insulin coverage with [facility]- recommending 70/30 5 units at [facility]- we will initiate tonight and monitor prior to discharge (3) Elevated troponin I level Current Visit: No Status: Acute Assessment and Plan: Elevated troponin of 0.07. Patient appears to have chronically elevated troponins. Patient denies any chest pain but did note brief episode of palpitations prior to episode of emesis. Subtle changes in EKG were noted when compared to previous EKG in 2017 with possible T-wave inversions in aVF and V6. -Trend troponin -Obtain echocardiogram -Consider cardiology consult 10/16/2018 Tropinin chronically elevated cardiology consulted -No further cardiac recs. Pt is not a candidate for ischemic eval in setting of CVA. TTE LVEF 55-60%. Severe concentric left ventricular hypertrophy. Moderate left ventricular diastolic dysfunction. Normal right ventricular structure and function. Trace tricuspid regurgitation. No evidence of pulmonary hypertension. There is a trivial to small sized pericardial effusion present. There is no echocardiographic evidence of tamponade. 10/17/2018 see above- No CP (4) Essential hypertension Current Visit: No Status: Chronic Assessment and Plan: Patient presents with elevated blood pressure. -Allow for permissive hypertension for the first 24 hours due to concern for CVA . 10/16/2018 Started patient on lisinopril 20mg daily may need to increase and possibly add a CCB hydralazine as needed 10/17/2018 Increased lisinopril 40mg daily- will monitor Hydralazine as needed (5) COPD (chronic obstructive pulmonary disease) Current Visit: No Status: Chronic Assessment and Plan: No evidence of an acute exacerbation. -Resume home inhalers. 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 Patient has not been taking her Synthroid since . Now c/o significant fatigue and palpatations. -We will check TSH. 10/16/2018 Resumed synthroid 10/17/2018 increased synthroid to 112mcg- will check as outpatient (7) Palpitations Current Visit: Yes Status: Acute Assessment and Plan: Patient reports episode of palpitations associated with shortly thereafter with nausea and vomiting. Patient has not taken her Synthroid since . -Telemetry -We will obtain TSH level -Obtain echocardiogram 10/16/2018 seen by cardiology no further workup TSH elevated which his probably contributing to palpitations SHELIA LVEF 55-60%. Severe concentric left ventricular hypertrophy. Moderate left ventricular diastolic dysfunction. Normal right ventricular structure and function. Trace tricuspid regurgitation. No evidence of pulmonary hypertension. There is a trivial to small sized pericardial effusion present. There is no echocardiographic evidence of tamponade. 10/17/2018 No palpitations or CP (8) Right sided numbness Current Visit: Yes Status: Acute Assessment and Plan: Patient presents with a right-sided facial and right upper extremity numbness for the past 2 days. Decreased sensation noted on physical examination on the right side. No other focal neurological deficits. Initial imaging of the head showed no acute intracranial abnormalities. Patient received loading dose of aspirin in the ED. -Neuro checks -Allow for permissive hypertension -telemetry -We will obtain echocardiogram -MRA of the head and neck Consult to neurology 10/16/2018 -cont telemetry MRI MRI scan of the brain was reviewed and does reveal an acute left thalamic infarct. Echocardiogram revealed no evidence of PFO. SHELIA LVEF 55-60%. Severe concentric left ventricular hypertrophy. Moderate left ventricular diastolic dysfunction. Normal right ventricular structure and function. Trace tricuspid regurgitation. No evidence of pulmonary hypertension. There is a trivial to small sized pericardial effusion present. There is no echocardiographic evidence of tamponade. cont with ASA statin neurology consulted recommending Aggressive management of her risk factors and medication compliance- encourage smoking cessation normalizing BP 10/17/2018 see above BP improving Glucose stabilizing discussed importance of maintain BP and glucose- discussed smoking cessation Cont ASA Statin (9) Leukocytosis Current Visit: Yes Status: Acute Assessment and Plan: Mild leukocytosis of 14.3 in the setting of elevated hemoglobin and hematocrit. Suspect secondary to hemoconcentration. We will monitor for now and give maintenance fluids 10/16/2018 improved -resolved . - Time Spent with Patient Total time spent is greater than 50% in coordination of care (as documented) at patient's floor/unit and/or counseling patient: Internal Medicine: Result - Labs CBC & Chem 7: 10/17/18 11:10 10/17/18 11:10 Labs: Short CBC 10/17/18 Range/Units 11:10 WBC 8.5 (4.3-11.1) K/mcL Hgb 13.9 (11.5-15.4) g/dL Hct 41.8 (35.3-44.9) % Plt Count 235 (140-400) K/mcL Neutrophils # 5.2 (1.6-8.9) K/mcL BMP 10/17/18 11:10 Sodium 137 Potassium 3.3 L Chloride 101 Carbon Dioxide 31 H BUN 9 Creatinine 0.82 Glucose 190 H Calcium 9.2 - ABG Interpretation ABG results: PT/INR, D-dimer PT 12.5 Seconds (9.4-12.1) H 10/16/18 07:00 Consult Discharge Plan - Plan Referrals: Edgar Carmichael Jr, HIGHWAY ADMINISTRATIVE ENGINEER [Advanced Practice Nurse] - 10/23/18 9:00 am (2) Diabetes mellitus Qualifiers: Diabetes mellitus type: type 2 Diabetes mellitus emt intermediate insulin use: without emt intermediate use Diabetes mellitus complication status: with hyperglycemia Qualified Code(s): E11.65 - Type 2 diabetes mellitus with hyperglycemia (5) COPD (chronic obstructive pulmonary disease) Qualifiers: COPD type: unspecified COPD Qualified Code(s): J44.9 - Chronic obstructive pulmonary disease, unspecified (6) Hypothyroid Qualifiers: Hypothyroidism type: unspecified Qualified Code(s): E03.9 - Hypothyroidism, unspecified (9) Leukocytosis Qualifiers: Leukocytosis type: unspecified Qualified Code(s): D72.829 - Elevated white blood cell count, unspecified
[2018-10-18] MEDS: Ondansetron 4 MG/2 ML VIAL IVP PRN (04:06)
[2018-10-18 04:56] LABS: Basophils # 0.1 K/mcL (0.0-0.2); Basophils % 0.7 %; Eosinophils # 0.1 K/mcL (0.0-0.6); Eosinophils % 1.1 %; Hematocrit 42.6 % (35.3-44.9); Hemoglobin 13.9 g/dL (11.5-15.4); Immature Granulocytes % 0.4 % (0-4); Lymphocytes # 2.4 K/mcL (0.6-4.6); Mean Corpuscular HGB Conc 32.6 g/dL (31.6-35.5); Mean Corpuscular Hemoglobin 30.3 pg (28.0-33.3); Mean Platelet Volume 10.4 fL (9.4-12.4); Monocytes # 0.6 K/mcL (0.0-1.3); Monocytes % 7.6 %; Neutrophils # 4.2 K/mcL (1.6-8.9); Platelet Count 234 K/mcL (140-400); Red Blood Count 4.58 M/mcL (3.82-4.97); Segmented Neutrophils % 57.2 %
[2018-10-18 05:24] LABS: BUN/Creatinine Ratio 13 (6-26); Blood Urea Nitrogen 12 mg/dL (6-20); Calcium 9.1 mg/dL (8.6-10.3); Carbon Dioxide 29 mEq/L (23-29); Chloride 100 mEq/L (98-107); Glucose 184 mg/dL (70-105); Osmolality,Calculated 291 (280-300); Potassium 3.7 mEq/L (3.5-5.1); Sodium 138 mEq/L (136-145); eGFR For Non-African Americans > 60 (> 60)
[2018-10-18] MEDS: *HR* Heparin 5,000 UNIT/ML VIAL SQ SCH (05:34)
[2018-10-18] MEDS ORDERED: diazePAM 10 MG/2 ML SYRINGE IVP ONE (05:39)
[2018-10-18] MEDS: Insulin NPH/REG 70/30 100 UNIT/ML (x5UNIT) SQ SCH (08:43)
[2018-10-18] MEDS: Aspirin Enteric Coated 81 MG Tablet PO SCH (08:43)
[2018-10-18] MEDS ORDERED: Lisinopril 20 MG TABLET PO SCH (09:00)
--- NOTE | 2018-10-18 10:58 | Discharge Summary ---
- NOTES TO OUTPATIENT PROVIDER Notes to Outpatient Provider: L thalamic infarct- seen by neurology and cardiology- cont ASA statin - monitor BP closely on lisinopril 40mg daily , monitor glucose- HgA1c 10 -started on low dose of 70/30- BP and glucose much improved- encouraged lifestyle changes- stop smoking decrease stress weightloss. BP control and glucose control. -outpatient OT. -monitor TSH- increased synthroid 112mcg. -follow up with cardiology and neurology Date of Encounter: 10/18/18 Time of Encounter: 10:54 - Discharge Diagnosis (1) Diabetes mellitus Priority: Secondary Status: Chronic Qualifiers: Diabetes mellitus type: type 2 Diabetes mellitus senior care insulin use: without senior care use Diabetes mellitus complication status: without complication Qualified Code(s): E11.9 - Type 2 diabetes mellitus without complications (2) Elevated troponin I level Priority: Secondary Status: Acute (3) Essential hypertension Priority: Secondary Status: Chronic (4) COPD (chronic obstructive pulmonary disease) Priority: Secondary Status: Chronic Qualifiers: COPD type: unspecified COPD Qualified Code(s): J44.9 - Chronic obstructive pulmonary disease, unspecified (5) Hypothyroid Priority: Secondary Status: Acute Qualifiers: Hypothyroidism type: unspecified Qualified Code(s): E03.9 - Hypothyroidism, unspecified (6) Palpitations Priority: Secondary Status: Acute (7) Right sided numbness Priority: Primary Status: Acute (8) Leukocytosis Priority: Secondary Status: Acute Qualifiers: Leukocytosis type: unspecified Qualified Code(s): D72.829 - Elevated white blood cell count, unspecified Hospital course: Ms. Lo is a 47 year old female PMH of DM, HTN, HLD, hypothyroidism, and morbid obesity who presented to [facility] ED on 10/14/18 with chief complaint of right upper extremity and facial numbness. She reported the symptoms began approximately 2 days prior to admission.she had not taken her medications since Nicole. Upon arrival to the ED, vital signs were significant for an elevated respiratory rate of 20 and elevated blood pressure 169/109. EKG demonstrated normal sinus rhythm, nonspecific ST and T wave changes. Elevated troponin and TSH CT scan of the head was obtained; demonstrated no acute process. MRI of the head reveal an acute left thalamic infarct. Echocardiogram revealed no evidence of PFO. MRA scan of the brain and of the neck revealed no evidence of f low-limiting stenosis. She was started on ASA and statin She was seen by neurology recommending normalizing BP after 24hrs -cont ASA statin glucose control and decreasing risk factors- PT/OT evaluations and recommended outpatient OT- Seen by cardiology - recommending repeat TTE and was not candidate for ischemic eval in setting of CVA. Her synthroid was increased she resumed on her medications - Statin ASA lisinopril HgbA1c was 10 she was started on insulin- care management consulted to assist with medications and the patient's current financial situation. She was given prescription for insulin, and diabetic supplies atorvastain ASA lisinopril synthroid and inhaler. Her BP and glucose normalized- Advised patient to follow up with neurology cardiology PCP, She is hemodynamically stable and ready for discharge - Time Spent with Patient Total time spent providing and/or coordinating discharge services: - Discharge Medications Prescriptions: Albuterol Sulfate [Ventolin Hfa] 2 - 6 spray IH 1-3XD PRN #1 hfa.aer.ad PRN Reason: Shortness Of Breath Aspirin Enteric Coated [Aspirin EC] 81 mg PO DAILY #30 tablet. Atorvastatin [Lipitor] 40 mg PO HS #30 tablet Insulin NPH/REG 70/30 (HUMAN) [Humulin 70/30 Vial] 5 unit SQ BIDAC #1 vial Levothyroxine [Synthroid] 112 mcg PO DAILY@0630 #30 tablet Lisinopril [Zestril] 40 mg PO DAILY #60 tablet Home Medications: Budesonide/Formoterol 160/4.5 [Symbicort 160/4.5] 2 puff IH BID 09/02/17 [History] Albuterol Sulfate [Ventolin Hfa] 2 - 6 spray IH 1-3XD PRN #1 hfa.aer.ad 10/18/18 [Rx] Aspirin Enteric Coated [Aspirin EC] 81 mg PO DAILY #30 tablet. 10/18/18 [Rx] Atorvastatin [Lipitor] 40 mg PO HS #30 tablet 10/18/18 [Rx] Insulin NPH/REG 70/30 (HUMAN) [Humulin 70/30 Vial] 5 unit SQ BIDAC #1 vial 10/18/18 [Rx] Levothyroxine [Synthroid] 112 mcg PO DAILY@0630 #30 tablet 10/18/18 [Rx] Lisinopril [Zestril] 40 mg PO DAILY #60 tablet 10/18/18 [Rx] Allergies/Adverse Reactions: Allergy/AdvReac Type Severity Reaction Status Date / Time metformin AdvReac Diarrhea Verified 10/15/18 08:44 metoprolol AdvReac LIGHT Verified 10/15/18 08:44 HEADED, NAUSEA Date of admission: 10/16/18 16:55 Primary care physician: PCP NONE Consults: 10/15/18 06:19 Consult to Neurology [CONS] Routine Consulting Provider: [facility] Reason for Consult: Concern for CVA/TIA Call Completed: No 10/15/18 12:20 Consult to Cardiology [CONS] Routine Comment: Consulting Provider: Cardiology [place] Reason for Consult: palpitations elevated troponin Time Notified: 12:21 Call Completed: Yes 10/16/18 08:35 Consult to Physical Therapy [CONS] Routine Comment: Evaluate, develop and implement POC Reason for Consult: CVA Does patient have active BEDREST order?: No Is patient medically & hemodynamically stable?: Yes Patient assessed for mobility or mobilized this visit?: No 10/16/18 08:36 Consult to Occupational Therapy [CONS] Routine Comment: Evaluate, develop and implement POC Reason for Consult: CVA Does patient have active BEDREST order?: No Is patient medically & hemodynamically stable?: Yes Patient assessed for mobility or mobilized this visit?: No 10/17/18 14:00 Consult to Dry Kiln Operator [CONS] Routine Reason for SW Consult: child day care center worker assistance for grandchildren Discharging clinician: Mari Mills Anticipated date of discharge: 10/18/18 - Constitutional Vitals: Temp Pulse Resp BP Pulse Ox 98.7 F 63 15 143/85 94 10/18/18 07:11 10/18/18 07:11 10/18/18 07:11 10/18/18 07:11 10/18/18 08:40 Exam: General: Alert and oriented 3 sitting upright in bed. Skin:Normal color, no rash, no lesions. HEENT:EOM, pupils equal, round and reactive. Cardiovascular:Normal S1 & S2, no rubs, murmurs or gallops. No JVD. Pulse regular. Lungs:Normal breath sounds, no wheezes or crackles. Abdomen:Soft, non-tender, no rigidity. Extremities:No deformity, no edema or tenderness, no joint swelling or clubbing. Neurological:Normal cognition and motor skills. Cranial nerves II through XII intact. Muscle strength 4/5 r upper extremity 5/5 L upper extremity normal lower extremity strength No evidence of pronator drift. No evidence of dysmetria. Decreased sensation on the right side of the face and right upper extremity. Pulses:Carotid and radial pulses normal +2. Rest of the physical exam is non contributory - Patient Status Disposition: Home, Self-Care Condition: Fair Functional capacity at discharge: independent ambulation Overall status at discharge: patient is back to baseline - Discharge Instructions Instructions: Insulin NPH/Regular (Injection), Low Fat Diet (DC), Low Fat Diet (GEN), Heart Healthy Diet (DC), Heart Healthy Diet (GEN), Diabetes Mellitus Type 2 in Adults (DC), Giving an Insulin Injection (DC), Ischemic Stroke (DC), Ischemic Stroke (GEN), Ischemic Stroke, Teacher Lip Reading (GEN) Follow Up With: Edgar Carmichael Jr, CNP [Advanced Practice Nurse] - 10/23/18 9:00 am Zhang Christina DO [Partnered Physician] - (Appointmemt has been webrequested. Office will call with follow up appointment.) - Diet and Activity Activity: increase activity as tolerated Diet: diabetic diet, low fat, low cholesterol
[2018-10-18 11:27] VITALS: BP 158/96
--- NOTE | 2018-10-20 13:40 | Electrocardiograph Report ---
[address] [place], [place] [address] Test Date: 2018-10-16 Pat Name: Katherine Lo Department: 113 Room: 3B64 Gender: F Director Of Business Systems: : 1970 Requested By: Mari Mills Order Number: [id number] Reading MD: Yesy Burgess Measurements Intervals [place] Rate: 64 P: 50 SD: 151 QRS: 59 QRSD: 108 T: -87 QT: 441 QTc: 451 Interpretive Statements SINUS RHYTHM MODERATE T-WAVE ABNORMALITY, CONSIDER ISCHEMIA Electronically Signed On 10-20-2018 13:38:39 EST by Yesy Burgess
== END 2018-10-18 14:48 | disposition home or self-care (01) | DRG 65 ==
LOC: EMEROOARM 01:21 → 3BNU 01:21
PROVIDERS: ADMIT Internal Medicine; ATTEND Internal Medicine

== ENCOUNTER 2020-11-13 21:21 | Inpatient (IN) ==
[2020-11-13] MEDS ORDERED: Isovue-370 500 ML BOTTLE IVP ONE (21:36)
[2020-11-13] MEDS ORDERED: Ipratropium/Albuterol Neb 3 ML IH ONE (21:45)
[2020-11-13] MEDS ORDERED: methylPREDNISolone 125 MG/2 ML VIAL IVP ONE (21:45)
[2020-11-13] MEDS ORDERED: *HR* FentaNYL (PF) 100 MCG/2 ML VIAL IVP ONE (21:56)
[2020-11-13 22:00] LABS: Basophils # 0.1 K/mcL (0.0-0.2); Basophils % 0.5 %; Eosinophils % 0.2 %; Hematocrit 39.7 % (35.3-44.9); Hemoglobin 13.4 g/dL (11.5-15.4); Immature Granulocytes % 1.9 % (0-4); Lymphocytes % 9.6 %; Mean Corpuscular HGB Conc 33.8 g/dL (31.6-35.5); Mean Corpuscular Hemoglobin 28.6 pg (28.0-33.3); Mean Corpuscular Volume 84.8 fL (83.0-100.0); Mean Platelet Volume 11.9 fL (9.4-12.4); Monocytes # 1.6 K/mcL (0.0-1.3); Monocytes % 7.7 %; Neutrophils # 16.5 K/mcL (1.6-8.9); Platelet Count 310 K/mcL (140-400); Red Blood Count 4.68 M/mcL (3.82-4.97); Red Cell Distribution Width 12.4 % (11.5-14.5); Segmented Neutrophils % 80.1 %; White Blood Count 20.6 K/mcL (4.3-11.1)
[2020-11-13 22:10] LABS: Amorphous Sediment,Urine Few per hpf (None-Few); Bacteria,Urine Many per hpf (None-Few); Bilirubin,Urine Negative (Negative); Blood,Urine Small (Negative); Clarity,Urine Turbid (Clear); Color,Urine Yellow (Yellow); Glucose,Urine (UA) >=1000 mg/dL (Normal); Ketones,Urine Trace mg/dL (Negative); Leukocyte Esterase,Urine Large (Negative); Mucus,Urine Few per lpf (None-Few); Nitrite,Urine Negative (Negative); PH,Urine 5.5 pH Units (5.0-8.0); Protein,Urine 70 mg/dL (Neg-Trace); Specific Gravity,Urine 1.012 (1.010-1.025); Squamous Epithelial Cell,Urine Moderate per hpf (None-Few); Urobilinogen,Urine Normal (Normal); WBC,Urine 50-100 per hpf (0-3)
[2020-11-13 22:19] LABS: Albumin 3.4 g/dL (3.5-5.7); Albumin/Globulin Ratio 0.8 (1.1-2.2); Bilirubin,Direct 0.1 mg/dL (0.0-0.2); Bilirubin,Indirect 0.4 mg/dL (0.0-1.0); Bilirubin,Total 0.5 mg/dL (0.3-1.0); Calcium 9.5 mg/dL (8.6-10.3); Globulin 4.3 g/dL (2.4-3.5); Potassium 3.5 mEq/L (3.5-5.1); Total Protein 7.7 g/dL (6.4-8.9); Troponin I 0.03 ng/mL (< 0.04)
[2020-11-13 22:28] LABS: Dohle Bodies Present (Not Present)
[2020-11-13] MEDS ORDERED: 0.9 % Sodium Chloride 1,000 ML IVC ONE ×2 (22:28→23:47)
[2020-11-13 22:33] LABS: Thyroid Stimulating Hormone 1.033 mcIU/mL (0.340-5.600)
[2020-11-13 22:55] LABS: Adenovirus Not Detected (Not Detect); Bordetella Pertussis Not Detected (Not Detect); Chlamydophila pneumoniae Not Detected (Not Detect); Coronavirus 229E Not Detected (Not Detect); Coronavirus HKU1 Not Detected (Not Detect); Coronavirus NL63 Not Detected (Not Detect); Coronavirus OC43 Not Detected (Not Detect); Human Metapneumovirus Not Detected (Not Detect); Human Rhinovirus/Enterovirus Not Detected (Not Detect); Influenza A Subtype 2009 H1 Not Detected (Not Detect); Influenza B Not Detected (Not Detect); Mycoplasma pneumoniae Not Detected (Not Detect); Parainfluenza Virus 1 Not Detected (Not Detect); Parainfluenza Virus 2 Not Detected (Not Detect); Parainfluenza Virus 3 Not Detected (Not Detect); Parainfluenza Virus 4 Not Detected (Not Detect); Respiratory Syncytial Virus Not Detected (Not Detect); SARS-CoV-2 Not Detected (Not Detect)
[2020-11-13] MEDS ORDERED: levoFLOXacin 750 MG/150 ML 750 MG/150 ML BAG IVPB ONE (23:31)
[2020-11-14] MEDS ORDERED: Dextrose Gel 15 GM/37.5 ML TUBE PO PRN ×2 (03:08)
[2020-11-14] MEDS ORDERED: *HR* Dextrose 50 % in Water (Vial) 50 ML VIAL IVP PRN ×2 (03:08→10:15)
[2020-11-14] MEDS ORDERED: D5% in Water 1,000 ML IVC PRN (03:08)
[2020-11-14] MEDS ORDERED: Insulin DETEMIR 100 UNIT/ML X5UNITS SUBQ SCH (03:30)
[2020-11-14] MEDS ORDERED: 0.9 % Sodium Chloride 1,000 ML IVC SCH (04:00)
[2020-11-14 04:54] LABS: Basophils # 0.1 K/mcL (0.0-0.2); Basophils % 0.7 %; Eosinophils % 0.1 %; Immature Granulocytes % 2.3 % (0-4); Lymphocytes # 1.1 K/mcL (0.6-4.6); Lymphocytes % 7.3 %; Mean Corpuscular HGB Conc 32.4 g/dL (31.6-35.5); Mean Corpuscular Hemoglobin 27.8 pg (28.0-33.3); Mean Corpuscular Volume 85.6 fL (83.0-100.0); Mean Platelet Volume 11.8 fL (9.4-12.4); Monocytes # 0.3 K/mcL (0.0-1.3); Monocytes % 2.2 %; Neutrophils # 13.3 K/mcL (1.6-8.9); Platelet Count 275 K/mcL (140-400); Red Blood Count 4.32 M/mcL (3.82-4.97); Red Cell Distribution Width 12.6 % (11.5-14.5); Segmented Neutrophils % 87.4 %; White Blood Count 15.2 K/mcL (4.3-11.1)
[2020-11-14 05:17] LABS: Albumin/Globulin Ratio 0.8 (1.1-2.2); Bilirubin,Total 0.4 mg/dL (0.3-1.0); Calcium 8.7 mg/dL (8.6-10.3); Globulin 3.9 g/dL (2.4-3.5); Potassium 3.7 mEq/L (3.5-5.1); Total Protein 6.9 g/dL (6.4-8.9)
[2020-11-14 05:32] LABS: Platelet Estimate Normal (Normal)
[2020-11-14] MEDS: Insulin LISPRO 300 UNITS/3 ML VIAL SUBQ SCH ×3 (05:45→08:07)
[2020-11-14] MEDS ORDERED: Insulin LISPRO 300 UNITS/3 ML VIAL SUBQ SCH ×2 (07:30→08:44)
[2020-11-14] MEDS ORDERED: 0.9 % Sodium Chloride 250 ML IV ONE (09:09)
[2020-11-14 09:21] LABS: Estimated Average Glucose 295 mg/dl; Hemoglobin A1C 11.9 %
[2020-11-14] MEDS: cefTRIAXone 1,000 MG in Water for inj. (sterile) 10 ML IVP SCH (09:27)
[2020-11-14] MEDS: Azithromycin 500 MG in 0.9 % Sodium Chloride 250 ML IVPB SCH (09:31)
[2020-11-14 10:05] LABS: Magnesium 2.4 mg/dL (1.6-2.6); Potassium 2.9 mEq/L (3.5-5.1)
[2020-11-14] MEDS ORDERED: Insulin Regular, Human 100 UNIT/ML IV PRN (10:15)
[2020-11-14] MEDS ORDERED: Insulin Human Regular 100 UNIT in 0.9 % Sodium Chloride 100 ML IVC SCH (10:15)
[2020-11-14] MEDS ORDERED: 0.45 % Sodium Chloride w/KCl 20 MEQ/1,000 ML MLS IVC SCH (10:15)
[2020-11-14] MEDS ORDERED: D5% in 0.45% NACL 1,000 ML IVC PRN (10:15)
[2020-11-14 14:19] LABS: Calcium 9.1 mg/dL (8.6-10.3); Magnesium 2.4 mg/dL (1.6-2.6); Potassium 3.4 mEq/L (3.5-5.1)
[2020-11-14] MEDS: 0.45 % Sodium Chloride w/KCl 20 MEQ/1,000 ML MLS IVC SCH ×2 (15:16→17:40)
[2020-11-14 17:29] LABS: VBG HCO3 23 mEq/L (21-27); VBG PCO2 36 mmHg (41-51); VBG PH 7.41 pH Units (7.32-7.42); VBG PO2 189 mmHg (25-50)
[2020-11-14] MEDS: *HR* Heparin 5,000 UNIT/ML VIAL SQ SCH (17:38)
[2020-11-14 17:44] LABS: Calcium 9.2 mg/dL (8.6-10.3); Magnesium 2.3 mg/dL (1.6-2.6); Potassium 3.4 mEq/L (3.5-5.1)
[2020-11-14] MEDS: D5% in 0.45% NACL w KCl 20 MEQ/1,000 ML MLS IVC PRN ×2 (18:26→22:27)
[2020-11-14 21:54] LABS: BUN/Creatinine Ratio 62 (6-26); Blood Urea Nitrogen 66 mg/dL (6-20); Calcium 9.3 mg/dL (8.6-10.3); Carbon Dioxide 23 mEq/L (23-29); Chloride 104 mEq/L (98-107); Glucose 81 mg/dL (70-105); Magnesium 2.2 mg/dL (1.6-2.6); Osmolality,Calculated 300 (280-300); Potassium 3.6 mEq/L (3.5-5.1); Sodium 136 mEq/L (136-145); eGFR For African Americans > 60 (> 60); eGFR For Non-African Americans 55 (> 60)
[2020-11-14] MEDS: Insulin DETEMIR 100 UNIT/ML X5UNITS SUBQ SCH (23:00)
[2020-11-15] MEDS ORDERED: levoFLOXacin 750 MG/150 ML 750 MG/150 ML BAG IVPB SCH
[2020-11-15] MEDS: Ringers Solution, Lactated 1,000 ML IVC SCH ×2 (00:14→09:21)
[2020-11-15] MEDS: Insulin LISPRO 300 UNITS/3 ML VIAL SUBQ SCH ×6 (01:32→20:23)
[2020-11-15 01:38] LABS: Basophils # 0.1 K/mcL (0.0-0.2); Basophils % 0.4 %; Hematocrit 35.8 % (35.3-44.9); Immature Granulocytes % 2.2 % (0-4); Lymphocytes # 1.6 K/mcL (0.6-4.6); Lymphocytes % 8.7 %; Mean Corpuscular HGB Conc 33.5 g/dL (31.6-35.5); Mean Corpuscular Hemoglobin 28.7 pg (28.0-33.3); Mean Corpuscular Volume 85.6 fL (83.0-100.0); Mean Platelet Volume 11.5 fL (9.4-12.4); Monocytes # 1.2 K/mcL (0.0-1.3); Monocytes % 6.7 %; Platelet Count 329 K/mcL (140-400); Red Blood Count 4.18 M/mcL (3.82-4.97); Red Cell Distribution Width 12.4 % (11.5-14.5); White Blood Count 18.3 K/mcL (4.3-11.1)
[2020-11-15 02:00] LABS: BUN/Creatinine Ratio 65 (6-26); Blood Urea Nitrogen 62 mg/dL (6-20); Calcium 9.1 mg/dL (8.6-10.3); Carbon Dioxide 21 mEq/L (23-29); Chloride 103 mEq/L (98-107); Glucose 162 mg/dL (70-105); Magnesium 2.3 mg/dL (1.6-2.6); Osmolality,Calculated 301 (280-300); Phosphorous 2.2 mg/dL (2.7-4.5); Potassium 3.7 mEq/L (3.5-5.1); Sodium 135 mEq/L (136-145); eGFR For African Americans > 60 (> 60); eGFR For Non-African Americans > 60 (> 60)
[2020-11-15 02:04] LABS: Platelet Estimate Normal (Normal); Reactive Lymphocytes Present (Not Present)
[2020-11-15] MEDS: *HR* Heparin 5,000 UNIT/ML VIAL SQ SCH ×2 (09:19→17:39)
[2020-11-15] MEDS: Azithromycin 500 MG in 0.9 % Sodium Chloride 250 ML IVPB SCH (09:20)
[2020-11-15] MEDS: cefTRIAXone 1,000 MG in Water for inj. (sterile) 10 ML IVP SCH (09:20)
[2020-11-15] MEDS: Aspirin Enteric Coated 81 MG Tablet PO SCH (09:20)
[2020-11-15] MEDS ORDERED: Ondansetron 4 MG/2 ML VIAL IVP PRN (09:46)
[2020-11-15] MEDS: Ipratropium/Albuterol Neb 3 ML IH PRN ×2 (13:39→20:38)
[2020-11-15] MEDS: Insulin DETEMIR 100 UNIT/ML X5UNITS SUBQ SCH (20:23)
[2020-11-16] MEDS: Insulin LISPRO 300 UNITS/3 ML VIAL SUBQ SCH ×6 (00:20→21:22)
[2020-11-16 02:35] LABS: Hematocrit 36.8 % (35.3-44.9); Hemoglobin 11.9 g/dL (11.5-15.4); Mean Corpuscular HGB Conc 32.3 g/dL (31.6-35.5); Mean Corpuscular Hemoglobin 28.5 pg (28.0-33.3); Mean Platelet Volume 11.4 fL (9.4-12.4); Platelet Count 367 K/mcL (140-400); Red Blood Count 4.18 M/mcL (3.82-4.97); Red Cell Distribution Width 13.2 % (11.5-14.5); White Blood Count 12.3 K/mcL (4.3-11.1)
[2020-11-16 02:52] LABS: BUN/Creatinine Ratio 52 (6-26); Blood Urea Nitrogen 51 mg/dL (6-20); Calcium 9.1 mg/dL (8.6-10.3); Carbon Dioxide 27 mEq/L (23-29); Chloride 104 mEq/L (98-107); Glucose 100 mg/dL (70-105); Magnesium 1.8 mg/dL (1.6-2.6); Osmolality,Calculated 306 (280-300); Sodium 141 mEq/L (136-145); eGFR For African Americans > 60 (> 60); eGFR For Non-African Americans > 60 (> 60)
[2020-11-16] MEDS: *HR* Heparin 5,000 UNIT/ML VIAL SQ SCH ×2 (05:55→17:15)
[2020-11-16] MEDS ORDERED: Piperacillin/Tazobactam 3.375 GM in 0.9 % Sodium Chloride Mini Bag 100 ML IVPB SCH (08:00)
[2020-11-16] MEDS: Aspirin Enteric Coated 81 MG Tablet PO SCH (08:32)
[2020-11-16] MEDS ORDERED: cefTRIAXone 2,000 MG in Water for inj. (sterile) 20 ML IVP SCH (09:00)
[2020-11-16] MEDS ORDERED: cefTRIAXone 1,000 MG in Water for inj. (sterile) 10 ML IVP ONE (09:50)
[2020-11-16] MEDS: Ertapenem 1,000 MG in 0.9 % Sodium Chloride Mini Bag 100 ML IVPB SCH (15:07)
[2020-11-16] MEDS: Insulin DETEMIR 100 UNIT/ML X5UNITS SUBQ SCH (21:06)
[2020-11-16] MEDS ORDERED: 0.9 % Sodium Chloride 500 ML ONE (21:16)
[2020-11-16] MEDS: Ipratropium/Albuterol Neb 3 ML IH PRN (22:28)
[2020-11-17] MEDS: Insulin LISPRO 300 UNITS/3 ML VIAL SUBQ SCH ×5 (00:42→17:43)
[2020-11-17 01:57] LABS: Basophils # 0.1 K/mcL (0.0-0.2); Basophils % 0.6 %; Eosinophils % 0.3 %; Hematocrit 36.5 % (35.3-44.9); Hemoglobin 11.6 g/dL (11.5-15.4); Immature Granulocytes % 2.5 % (0-4); Mean Corpuscular HGB Conc 31.8 g/dL (31.6-35.5); Monocytes # 0.9 K/mcL (0.0-1.3); Monocytes % 7.8 %; Neutrophils # 8.4 K/mcL (1.6-8.9); Platelet Count 335 K/mcL (140-400); Red Blood Count 4.15 M/mcL (3.82-4.97); Red Cell Distribution Width 13.2 % (11.5-14.5); Segmented Neutrophils % 71.8 %; White Blood Count 11.7 K/mcL (4.3-11.1)
[2020-11-17 02:21] LABS: BUN/Creatinine Ratio 32 (6-26); Blood Urea Nitrogen 26 mg/dL (6-20); Calcium 8.5 mg/dL (8.6-10.3); Carbon Dioxide 26 mEq/L (23-29); Chloride 104 mEq/L (98-107); Glucose 207 mg/dL (70-105); Magnesium 1.6 mg/dL (1.6-2.6); Osmolality,Calculated 299 (280-300); Phosphorous 3.1 mg/dL (2.7-4.5); Potassium 3.5 mEq/L (3.5-5.1); Sodium 139 mEq/L (136-145); eGFR For African Americans > 60 (> 60); eGFR For Non-African Americans > 60 (> 60)
[2020-11-17] MEDS: *HR* Heparin 5,000 UNIT/ML VIAL SQ SCH ×2 (06:15→17:43)
[2020-11-17] MEDS: Ertapenem 1,000 MG in 0.9 % Sodium Chloride Mini Bag 100 ML IVPB SCH (08:57)
[2020-11-17] MEDS: Aspirin Enteric Coated 81 MG Tablet PO SCH (08:57)
[2020-11-17] MEDS: Ipratropium/Albuterol Neb 3 ML IH PRN (19:31)
[2020-11-17] MEDS: Insulin DETEMIR 100 UNIT/ML X5UNITS SUBQ SCH (20:38)
[2020-11-17] MEDS ORDERED: Insulin LISPRO 300 UNITS/3 ML VIAL SUBQ SCH (21:00)
[2020-11-18 02:26] LABS: Basophils # 0.1 K/mcL (0.0-0.2); Basophils % 0.5 %; Eosinophils # 0.1 K/mcL (0.0-0.6); Eosinophils % 0.8 %; Hematocrit 37.2 % (35.3-44.9); Hemoglobin 12.1 g/dL (11.5-15.4); Immature Granulocytes % 2.9 % (0-4); Lymphocytes # 1.8 K/mcL (0.6-4.6); Lymphocytes % 16.4 %; Mean Corpuscular HGB Conc 32.5 g/dL (31.6-35.5); Mean Corpuscular Hemoglobin 28.3 pg (28.0-33.3); Mean Corpuscular Volume 87.1 fL (83.0-100.0); Mean Platelet Volume 10.6 fL (9.4-12.4); Monocytes # 0.7 K/mcL (0.0-1.3); Monocytes % 6.6 %; Platelet Count 377 K/mcL (140-400); Red Blood Count 4.27 M/mcL (3.82-4.97); Red Cell Distribution Width 13.2 % (11.5-14.5); Segmented Neutrophils % 72.8 %
[2020-11-18 02:43] LABS: BUN/Creatinine Ratio 21 (6-26); Blood Urea Nitrogen 18 mg/dL (6-20); Carbon Dioxide 29 mEq/L (23-29); Chloride 101 mEq/L (98-107); Glucose 208 mg/dL (70-105); Magnesium 1.6 mg/dL (1.6-2.6); Osmolality,Calculated 292 (280-300); Phosphorous 2.8 mg/dL (2.7-4.5); Potassium 3.6 mEq/L (3.5-5.1); Sodium 137 mEq/L (136-145); eGFR For African Americans > 60 (> 60); eGFR For Non-African Americans > 60 (> 60)
[2020-11-18] MEDS ORDERED: lisinopriL 20 MG TABLET PO SCH (04:00)
[2020-11-18] MEDS: *HR* Heparin 5,000 UNIT/ML VIAL SQ SCH (05:57)
[2020-11-18] MEDS: Insulin LISPRO 300 UNITS/3 ML VIAL SUBQ SCH ×2 (07:22→11:22)
[2020-11-18] MEDS: Ertapenem 1,000 MG in 0.9 % Sodium Chloride Mini Bag 100 ML IVPB SCH (08:45)
[2020-11-18] MEDS: Aspirin Enteric Coated 81 MG Tablet PO SCH (08:45)
[2020-11-18] MEDS ORDERED: amLODIPine 5 MG TABLET PO SCH (09:00)
[2020-11-18 10:59] VITALS: BP 129/85
== END 2020-11-18 14:00 | disposition home or self-care (01) | DRG 871 ==
LOC: EMEROOARM 21:21 → 3ANU 21:21 → SUATTDRO 11-14 01:20 → 3ANU 11-14 02:04 → 2NNU 11-14 14:46 → 3ANU 11-15 13:11 → SUATTDRO 11-15 15:02
PROVIDERS: ADMIT Internal Medicine; ATTEND Internal Medicine